=== PATIENT | male | born 1950 | race Caucasian/White ===

== ENCOUNTER → 2017-04-12 09:43 | Outpatient (CLI) | payer SELFPAY ==
[2017-04-12 12:29] LABS: AST(SGOT) 27 U/L (15-37); Alanine Aminotransfer ALT/SGPT 36 U/L (12-78); Albumin, Serum 3.5 g/dL (3.4-5.0); Alkaline Phosphatase 60 U/L (45-117); Anion Gap 7 (5-15); BUN 25 mg/dL (7-18); BUN/Creat Ratio 32.5 RATIO (10-20); Chloride 106 mmol/L (98-107); Cholesterol 126 mg/dL (200); Creatinine, Serum 0.77 mg/dL (0.70-1.30); Globulin 3.5 g/dL (2.2-4.2); Glucose 86 mg/dL (70-110); High Density Lipoprotein 39 mg/dL; Potassium 4.2 mmol/L (3.5-5.1); Sodium Level 139 mmol/L (136-145); Triglycerides 78 mg/dL; Very Low Density Lipoprotein 16 mg/dL (5-40)
== END ==
PROVIDERS: Family Provider Family Medicine; PCP Family Medicine; Visit Provider Family Medicine
DX: I25.10 Atherosclerotic heart disease of native coronary artery without angina pectoris (principal)
CPT/HCPCS: 36415; 80047; 80061; 80076

== ENCOUNTER → 2019-09-07 09:40 | Outpatient (CLI) | payer MEDICARE, SELFPAY ==
[2017-11-11 14:19] VITALS: BMI 27.8
[2019-09-07 12:25] LABS: AST(SGOT) 23 U/L (15-37); Alanine Aminotransfer ALT/SGPT 42 U/L (16-61); Anion Gap 4 (5-15); BUN 18 mg/dL (7-18); BUN/Creat Ratio 20.7 RATIO (10-20); Calcium,Total 8.8 mg/dL (8.5-10.1); Chloride 107 mmol/L (98-107); Cholesterol 135 mg/dL (200); Creatinine, Serum 0.87 mg/dL (0.70-1.30); EST Glomerular Filtration Rate 93 mL/min (>60); Est Glom Filt Rate - Afr Amer 113 mL/min (>60); Glucose 114 mg/dL (74-106); High Density Lipoprotein 38 mg/dL; Potassium 4.1 mmol/L (3.5-5.1); Sodium Level 141 mmol/L (136-145); Triglycerides 124 mg/dL; Very Low Density Lipoprotein 25 mg/dL (5-40)
== END ==
PROVIDERS: PCP Family Medicine; Visit Provider Family Medicine
DX: E78.00 Pure hypercholesterolemia, unspecified (principal); I10 Essential (primary) hypertension
CPT/HCPCS: 36415; 80048; 80061; 84450; 84460

== ENCOUNTER → 2020-09-30 14:13 | Outpatient (CLI) | payer MEDICARE, SELFPAY ==
[2017-11-11 14:19] VITALS: BMI 27.8
[2020-09-30 16:10] LABS: AST(SGOT) 26 U/L (15-37); Alanine Aminotransfer ALT/SGPT 48 U/L (16-61); Anion Gap 3 (5-15); BUN 20 mg/dL (7-18); BUN/Creat Ratio 22.8 RATIO (10-20); Calcium,Total 8.7 mg/dL (8.5-10.1); Chloride 105 mmol/L (98-107); Cholesterol 131 mg/dL (200); Creatinine, Serum 0.88 mg/dL (0.70-1.30); EST Glomerular Filtration Rate 92 mL/min (>60); Est Glom Filt Rate - Afr Amer 111 mL/min (>60); Glucose 104 mg/dL (74-106); High Density Lipoprotein 28 mg/dL; PSA,Total - Annual Screen 2.54 ng/mL (0.00-4.00); Potassium 3.8 mmol/L (3.5-5.1); Sodium Level 140 mmol/L (136-145); Triglycerides 166 mg/dL; Very Low Density Lipoprotein 33 mg/dL (5-40)
== END ==
PROVIDERS: PCP Family Medicine; Visit Provider Family Medicine
DX: I25.10 Atherosclerotic heart disease of native coronary artery without angina pectoris (principal); E78.00 Pure hypercholesterolemia, unspecified; N40.0 Benign prostatic hyperplasia without lower urinary tract symptoms; Z12.5 Encounter for screening for malignant neoplasm of prostate
CPT/HCPCS: 36415; 80048; 80061; 84153; 84450; 84460; G0103

== ENCOUNTER 2021-05-03 11:33 | Outpatient (CLI) | payer MEDICARE, SELFPAY ==
[2021-05-03 15:04] LABS: Absolute Lymphocyte Count 1.24 X10^3/uL (0.83-4.51); Absolute Neutrophil Count 3.5 X10^3/uL (2.0-7.7); Basophil# 0.03 X10^3/uL; Basophil% 0.6 % (0-1); Eosinophil# 0.16 X10^3/uL; Hematocrit 44.3 % (40-54); Lymphocyte # 1.24 X10^3/ul (0.83-4.51); Lymphocyte % 23.3 % (19-41); Mean Corp Hgb Conc 33.9 g/dL (32-36); Mean Corpuscular Hgb 28.8 pg (27.0-32.0); Mean Corpuscular Volume 85.2 fL (80-94); Mean Platelet Vol. 11.6 fl (6.2-12.0); Monocyte# 0.42 X10^3/uL; Monocyte% 7.9 % (0-10); NRBC Flagged by Analyzer 0 % (0-5); Neutrophil # 3.45 X10^3/uL (2.7-7.7); Neutrophil % 64.8 % (47-70); Platelet Count 158 K/mm3 (150-450); RBC Distribution Width CV 13.3 % (11.6-14.6); RBC Distribution Width SD 41.1 fl (35.1-43.9); White Blood Count 5.3 K/mm3 (4.4-11.0)
[2021-05-03 15:45] LABS: ALB/GLOB Ratio 1.2 RATIO (0.9-2.4); AST(SGOT) 25 U/L (15-37); Alanine Aminotransfer ALT/SGPT 33 U/L (16-61); Albumin, Serum 3.7 g/dL (3.2-5.0); Alkaline Phosphatase 68 U/L (45-117); Anion Gap 7 (5-15); BUN 23 mg/dL (7-18); Calcium,Total 8.6 mg/dL (8.5-10.1); Chloride 106 mmol/L (98-107); Creatinine, Serum 0.79 mg/dL (0.70-1.30); EST Glomerular Filtration Rate 103 mL/min (>60); Est Glom Filt Rate - Afr Amer 124 mL/min (>60); Globulin 3.2 g/dL (2.2-4.2); Glucose 98 mg/dL (74-106); Potassium 4.4 mmol/L (3.5-5.1); Protein, Total 6.9 g/dL (6.4-8.2); Sodium Level 140 mmol/L (136-145); Thyroid Stim Hormone (TSH) 0.99 uIU/mL (0.358-3.74)
== END 2021-05-03 23:59 | disposition home or self-care (01) ==
LOC: MFPLAB 11:36
PROVIDERS: PCP Family Medicine; Referring Provider Family Medicine; Visit Provider Family Medicine
DX: R53.81 Other malaise (principal)
CPT/HCPCS: 36415; 80053; 84443; 85025

== ENCOUNTER → 2021-08-24 | Outpatient (CLI) | payer MEDICARE, SELFPAY ==
--- NOTE | 2021-08-24 06:21 | ECHOCS_ITS ---
Reason For Study: CAD Procedure This was a 2D Doppler, Color Flow transthoracic echocardiogram. The study was technically difficult. Contrast injection was performed. Exam performed in department. Left Ventricle Normal LV size. Left ventricular systolic function is normal. The estimated ejection fraction is 60 %. No evidence for diastolic dysfunction. No regional wall motion abnormalities noted. Right Ventricle Normal RV size. Normal systolic function. Atria The left atrium is mildly enlarged. Normal right atrium. No doppler evidence for ASD. Mitral Valve There is no mitral annular calcification. Normal mitral valve. Mild (1+) mitral valve insufficiency. Tricuspid Valve Normal tricuspid valve. Mild tricuspid valve insufficiency. Right ventricular systolic pressure estimated to be 22 mmHg. Aortic Valve Trisinus/trileaflet aortic valve. Mild focal aortic valve thickening. Pulmonic Valve The pulmonic valve is not well visualized. Trivial pulmonic valve insufficiency. Great Vessels Normal sized aortic root. Pericardium/Pleural No pericardial effusion. Medication Diluted definity 3ml given slow IV push to enhance endocardial definition. MMode/2D Measurements & Calculations LVIDd: 4.7 cm IVSd: 1.4 cm Ao root diam: 3.6 cm LVIDs: 3.0 cm LVPWd: 1.0 cm FS: 37.1 % LAV(MOD-bp): 54.1 ml LVAd ap4: 30.8 cm2 LVAd ap2: 27.9 cm2 LAV(MOD-bp) Indexed: 26.7 ml/m2 LVLd ap4: 7.7 cm LVLd ap2: 6.7 cm LAV(MOD-sp2): 55.3 ml EDV(MOD-sp4): 104.0 ml EDV(MOD-sp2): 94.7 ml LAV(MOD-sp4): 44.6 ml EDV(sp4-el): 104.8 ml EDV(sp2-el): 98.0 ml LVAs ap4: 17.5 cm2 LVAs ap2: 16.6 cm2 LVLs ap4: 6.4 cm LVLs ap2: 6.1 cm ESV(MOD-sp4): 42.9 ml ESV(MOD-sp2): 38.8 ml ESV(sp4-el): 40.5 ml ESV(sp2-el): 38.4 ml EF(MOD-sp4): 58.8 % EF(MOD-sp2): 59.1 % EF(sp4-el): 61.3 % SV(MOD-sp4): 61.1 ml SV(MOD-sp2): 56.0 ml SV(sp4-el): 64.3 ml LA A4 area: 17.5 cm2 LA dimension(2D): 3.5 cm RA A4 area: 11.4 cm2 Doppler Measurements & Calculations MV E max david: 44.2 cm/sec Lat Peak E' David: 9.5 cm/sec Med Peak E' David: 5.9 cm/sec MV A max david: 70.3 cm/sec E/E' lat: 4.7 E/E' med: 7.5 MV E/A: 0.63 Ao V2 max: 115.5 cm/sec LV V1 max: 96.2 cm/sec PA V2 max: 96.1 cm/sec Ao max P.3 mmHg LV V1 max P.7 mmHg TR max david: 219.4 cm/sec TR max P.3 mmHg ECHO/Echo Complete W/ Contrast Interpretation Summary The study was technically difficult. Contrast injection was performed. Left ventricular systolic function is normal. The estimated ejection fraction is 60 %. The left atrium is mildly enlarged. Mild (1+) mitral valve insufficiency. Mild tricuspid valve insufficiency. Mild focal aortic valve thickening. Trivial pulmonic valve insufficiency. Right ventricular systolic pressure estimated to be 22 mmHg. No evidence for diastolic dysfunction. Ordering Physician: Jese Silva Referring Physician: Flaca Estrella M.D. Performed By: Gabby Banuelos RDCS
--- NOTE | 2021-08-24 11:20 | STRESSREP ---
Stress Test Report Date: 08-24-2021 Procedure: Exercise tolerance test/imaging study Indications: CAD; PCI stomach CABG; hyperlipidemia; hypertension; paroxysmal atrial fibrillation; preoperative cardiovascular evaluation Consent: Per the patient Procedure: The patient exercised on a Moreno protocol for 9 minutes completing Stage III achieving a peak heart rate of 139 bpm (92% predicted maximal heart rate) with a peak blood pressure 164/84 mmHg and a peak MET capacity of 10 METs. The baseline ECG demonstrated sinus bradycardia. The peak exercise ECG demonstrated no obvious ECG change. There was a rare PVC during exercise and recovery. The functional capacity was considered good. There was [no complaint of chest discomfort during exercise or recovery]. The examination was discontinued secondary to dyspnea. Impression: 1. Technically adequate (percent predicted maximal heart rate greater than 85%) exercise tolerance test 2. Peak exercise ECG with no obvious ECG change 3. There was a rare PVC during exercise and recovery 4. Nuclear images pending Myocardial perfusion imaging study: Technique: The patient was injected with 11.5 mCi of technetium 99m Cardiolite and subsequently rest SPECT Cardiolite nuclear imaging was obtained in the horizontal long, vertical long, and short axis views. The patient exercised on a Moreno protocol for 9 minutes completing Stage III achieving a peak heart rate of 139 bpm (92% predicted maximal heart rate) with a peak blood pressure 164/84 mmHg and a peak MET capacity of 10 METs. The patient was injected with 34.7 mCi of technetium 99m Cardiolite and subsequently stress SPECT Cardiolite nuclear imaging was obtained in the horizontal long, vertical long, and short axis views. A gated Cardiolite study at peak stress was obtained. Interpretation: Rest and stress SPECT Cardiolite nuclear imaging status post realignment, normalization, and attenuation correction, demonstrates the appearance of body motion during image acquisition and otherwise relative uniform tracer uptake and myocardial perfusion appearing within normal limits. There is end systolic thickening and brightening. The gated Cardiolite study demonstrates myocardial thickening and inward wall motion. The reported LVEF is 62%. Impression: 1. Rest and stress SPECT Cardiolite nuclear imaging demonstrate [relative uniform tracer uptake and myocardial perfusion appearing within normal limits]. 2. The gated Cardiolite study reports an LVEF of 62%. This note was generated with [employer] software. It may contain incorrect words, spelling, and punctuation that were not noted in checking the note before signing.
== END | disposition home or self-care (01) ==
LOC: CVS 06:20
PROVIDERS: PCP Family Medicine; Referring Provider Internal Medicine Cardiovascular Disease; Visit Provider Internal Medicine Cardiovascular Disease
DX: I25.10 Atherosclerotic heart disease of native coronary artery without angina pectoris (principal); I48.0 Paroxysmal atrial fibrillation; I10 Essential (primary) hypertension; E78.00 Pure hypercholesterolemia, unspecified; I25.2 Old myocardial infarction; Z95.1 Presence of aortocoronary bypass graft
CPT/HCPCS: 78452; 93017; 93306; A9500; Q9957; A4216; C8929

== ENCOUNTER → 2022-01-24 | Outpatient (CLI) | payer MEDICARE, SELFPAY ==
[2022-01-24 18:08] LABS: Microalbumin,Random Urine 13.2 mg/L (NO RANGE EST.); Microalbumin:Creatinine Ratio 7.3 mg/g CRE (<30 mg/g CRE)
[2022-01-24 18:16] LABS: AST(SGOT) 18 U/L (15-37); Alanine Aminotransfer ALT/SGPT 24 U/L (16-61); Anion Gap 5 (5-15); BUN 23 mg/dL (7-18); BUN/Creat Ratio 25.2 RATIO (10-20); Calcium,Total 9.2 mg/dL (8.5-10.1); Chloride 107 mmol/L (98-107); Cholesterol 132 mg/dL (200); Creatinine, Serum 0.91 mg/dL (0.70-1.30); EST Glomerular Filtration Rate 87 mL/min (>60); Est Glom Filt Rate - Afr Amer 106 mL/min (>60); Glucose 114 mg/dL (74-106); High Density Lipoprotein 33 mg/dL; Sodium Level 141 mmol/L (136-145); Triglycerides 153 mg/dL; Very Low Density Lipoprotein 31 mg/dL (5-40)
== END | disposition home or self-care (01) ==
LOC: MFPLAB 14:21
PROVIDERS: PCP Family Medicine; Referring Provider Family Medicine; Visit Provider Family Medicine
DX: I25.10 Atherosclerotic heart disease of native coronary artery without angina pectoris (principal); E78.00 Pure hypercholesterolemia, unspecified; I10 Essential (primary) hypertension
CPT/HCPCS: 36415; 80048; 80061; 82043; 82570; 84450; 84460

== ENCOUNTER → 2022-05-23 | Outpatient (CLI) | payer MEDICARE, SELFPAY ==
--- NOTE | 2022-05-23 12:40 | VDLE_ITS ---
Reason For Study: LEG EDEMA RIGHT LEFT CFV is compressible, spontaneous, phasic, CFV is compressible, spontaneous, phasic, competent and demonstrates normal competent, and demonstrates normal augmentation. augmentation. FV is compressible, spontaneous, phasic, competent and demonstrates normal augmentation. POP V is compressible, spontaneous, phasic, competent and demonstrates normal augmentation. T/P Trunk is compressible. PTV is compressible. RT PerV is compressible. GSV Harvested for CABG. Procedure This is a venous duplex using B-mode, color flow and spectral Doppler. Exam performed in department. The exam was diagnostic. A preliminary report was called and/or faxed to Dr. Estrella office. VL/Venous Duplex US, Unilateral Interpretation Summary Deep veins of the right lower extremity are patent and compressible segmentally . There is no evidence of right lower extremity deep vein thrombosis. Valvular competence elizabeth ears intact within the proximal deep venous system on the right . The right great saphenous vein i s absent, having been previously harvested. Ordering Physician: Flaca Estrella Referring Physician: Flaca Estrella Performed By: King Flynn, RVBo
== END | disposition home or self-care (01) ==
PROVIDERS: PCP Family Medicine; Visit Provider Family Medicine
DX: R60.0 Localized edema (principal); M25.561 Pain in right knee; M25.562 Pain in left knee
CPT/HCPCS: 36415; 84550; 85025; 85652; 86038; 86140; 86431; 93971

== ENCOUNTER → 2022-05-23 | Outpatient (CLI) | payer MEDICARE, SELFPAY ==
[2022-05-23 15:35] LABS: Absolute Lymphocyte Count 0.94 X10^3/uL (0.83-4.51); Absolute Neutrophil Count 4.9 X10^3/uL (2.0-7.7); Basophil# 0.02 X10^3/uL; Basophil% 0.3 % (0-1); Eosinophil# 0.08 X10^3/uL; Eosinophils% 1.3 % (0-5); Hematocrit 40.8 % (40-54); Hemoglobin 13.5 g/dL (13.0-16.5); Lymphocyte # 0.94 X10^3/ul (0.83-4.51); Lymphocyte % 14.8 % (19-41); Mean Corp Hgb Conc 33.1 g/dL (32-36); Mean Corpuscular Hgb 28.3 pg (27.0-32.0); Mean Corpuscular Volume 85.5 fL (80-94); Mean Platelet Vol. 11.5 fl (6.2-12.0); Monocyte# 0.47 X10^3/uL; Monocyte% 7.4 % (0-10); NRBC Flagged by Analyzer 0 % (0-5); Neutrophil # 4.85 X10^3/uL (2.7-7.7); Platelet Count 183 K/mm3 (150-450); RBC Distribution Width CV 12.7 % (11.6-14.6); RBC Distribution Width SD 39.7 fl (35.1-43.9); Red Blood Count 4.77 M/mm3 (4.6-6.2); White Blood Count 6.4 K/mm3 (4.4-11.0)
[2022-05-23 15:37] LABS: Erythrocyte Sedimentation Rate 37 mm/hr (0-20)
[2022-05-23 15:43] LABS: Rheumatoid Factor < 10.0 IU/mL (<15); Uric Acid 4.2 mg/dL (3.5-7.2)
[2022-05-25 15:24] LABS: ANTINUCLEAR ANTIBODIES DIRECT Negative (Negative)
== END | disposition home or self-care (01) ==
LOC: MFPLAB 12:15
PROVIDERS: PCP Family Medicine; Referring Provider Family Medicine; Visit Provider Family Medicine
DX: M25.561 Pain in right knee (principal); M25.562 Pain in left knee
CPT/HCPCS: 36415; 84550; 85025; 85652; 86038; 86140; 86431

== ENCOUNTER → 2022-06-19 | Outpatient (CLI) | payer MEDICARE, SELFPAY ==
--- NOTE | 2022-06-19 11:17 | RAD_ITS ---
EXAM: XR RIGHT KNEE, 3 VIEWS CLINICAL INDICATION: PAIN TECHNIQUE: Three views of the right knee. This report was created using dough report generation technology. COMPARISON: None. FINDINGS: BONES/JOINTS: Small amount of suprapatellar joint fluid. No acute fracture. No subluxation. Normal alignment. No unusual lytic or sclerotic lesions of bone. SOFT TISSUES: Unremarkable. No soft tissue swelling or gas. No radiopaque foreign body. No soft tissue abnormalities. VASCULATURE: Atherosclerotic calcifications along the superficial femoral artery. RAD/Knee 4 or More Views IMPRESSION: No acute or healing fracture or malalignment. Electronically Signed: Minh Garay MD at 4:14 EDT ,
--- NOTE | 2022-06-19 11:17 | RAD_ITS ---
EXAM: XR LEFT KNEE, 3 VIEWS CLINICAL INDICATION: PAIN TECHNIQUE: Three views of the left knee. This report was created using [employer] report generation technology. COMPARISON: None. FINDINGS: BONES/JOINTS: Unremarkable. No acute fracture. No subluxation. Normal alignment. Preservation of the joint space. No sclerotic or destructive changes observed. SOFT TISSUES: Small amount of suprapatellar joint fluid. No soft tissue swelling or gas. No radiopaque foreign body. RAD/Knee 4 or More Views IMPRESSION: Small volume suprapatellar joint fluid. No acute or healing fracture or malalignment. Electronically Signed: Minh Garay MD at 4:10 EDT ,
== END | disposition home or self-care (01) ==
LOC: MTRAD 11:15
PROVIDERS: PCP Family Medicine; Referring Provider Family Medicine; Visit Provider Family Medicine
DX: M25.561 Pain in right knee (principal); M25.562 Pain in left knee
CPT/HCPCS: 73564

== ENCOUNTER → 2022-09-19 | Outpatient (CLI) | payer MEDICARE, SELFPAY ==
[2022-09-19 16:16] LABS: AST(SGOT) 32 U/L (15-37); Alanine Aminotransfer ALT/SGPT 38 U/L (16-61); Albumin, Serum 3.7 g/dL (3.2-5.0); Alkaline Phosphatase 55 U/L (45-117); Bilirubin, Direct 0.15 mg/dL (0.00-0.30); Cholesterol 136 mg/dL (200); Globulin 3.3 g/dL (2.2-4.2); High Density Lipoprotein 39 mg/dL; Triglycerides 144 mg/dL; Very Low Density Lipoprotein 29 mg/dL (5-40)
== END | disposition home or self-care (01) ==
LOC: LAB 14:54
PROVIDERS: PCP Family Medicine; Referring Provider Physician Assistant Medical; Visit Provider Physician Assistant Medical
DX: I25.10 Atherosclerotic heart disease of native coronary artery without angina pectoris (principal); E78.00 Pure hypercholesterolemia, unspecified
CPT/HCPCS: 36415; 80061; 80076

== ENCOUNTER → 2023-01-18 | Outpatient (CLI) | payer MEDICARE, SELFPAY ==
[2023-01-18 13:29] LABS: Microalbumin,Random Urine 13.7 mg/L (NO RANGE EST.); Microalbumin:Creatinine Ratio 18.3 mg/g CRE (<30 mg/g CRE)
[2023-01-18 14:05] LABS: AST(SGOT) 21 U/L (15-37); Alanine Aminotransfer ALT/SGPT 32 U/L (16-61); Anion Gap 3 (5-15); BUN 18 mg/dL (7-18); BUN/Creat Ratio 21.8 RATIO (10-20); Calcium,Total 8.6 mg/dL (8.5-10.1); Chloride 107 mmol/L (98-107); Creatinine, Serum 0.83 mg/dL (0.70-1.30); EST Glomerular Filtration Rate 97 mL/min (>60); Est Glom Filt Rate - Afr Amer 118 mL/min (>60); Glucose 102 mg/dL (74-106); Potassium 4.3 mmol/L (3.5-5.1); Sodium Level 139 mmol/L (136-145)
== END | disposition home or self-care (01) ==
LOC: MFPLAB 09:51
PROVIDERS: PCP Family Medicine; Visit Provider Family Medicine
DX: I10 Essential (primary) hypertension (principal); E78.00 Pure hypercholesterolemia, unspecified
CPT/HCPCS: 36415; 80048; 82043; 82570; 84450; 84460

== ENCOUNTER 2023-09-21 11:05 | Emergency (ER) | payer MEDICARE, SELFPAY ==
[2023-09-21 11:05] VITALS: BP 154/70; PULSE 54; RESP 14; TEMP 36.1; O2SAT 98; BMI 27.3
--- NOTE | 2023-09-21 11:21 | CT_ITS ---
STUDY: CT ABDOMEN AND PELVIS WITH CONTRAST REASON FOR EXAM: Male, 72 years old. Abdominal pain, hernia RADIATION DOSAGE (If Supplied By Facility): CTDIvol = ( 16.03 ) mGy, DLP = ( 1122.83 ) mGycm TECHNIQUE: Transaxial images were obtained from the dome of the diaphragm to the symphysis pubis without oral contrast. Oral and amp;amp; IV Gastrografin and amp;amp; 100mL Isovue-370 was administered. Sagittal and coronal images were reconstructed. Individualized dose optimization techniques were used for this CT. COMPARISON: None. FINDINGS: Lung bases show the lungs to be normally expanded. There is dependent atelectasis. No organizing infiltrate or effusion. There is a 6.7 mm noncalcified nodule on axial image 1. Since there are no previous studies available for comparison, a dedicated CT scan of the chest could be performed to determine if any other nodules are present. There has been a remote CABG Normal liver. There are multiple gallstones. Normal spleen. Normal pancreas. Normal bilateral adrenal glands. No obstructive uropathy or suspicious solid renal lesion, there is a simple right renal cyst, no specific follow-up is needed. There is a small hiatal hernia. Normal small intestine. Normal colon. The appendix is visualized and appears normal. Appendix seen on coronal recon images 47 through 51 There is diffuse atherosclerotic calcification of the abdominal aorta, without a demonstrated aneurysm. Normal inferior vena cava. Normal retroperitoneum. Normal urinary bladder. There is a fat-containing midline ventral hernia. There are no bowel loops noted within this hernia and there is no evidence of acute inflammatory change. Additionally, there are small fat-containing inguinal hernias. There are diffuse degenerative changes of the visualized lumbar spine, and pelvis. CT/Abdomen/Pelvis WITH Contrast IMPRESSION: There is a fat-containing ventral hernia. There are no bowel loops within the hernia and no CT evidence of an acute inflammatory process Bilateral fat-containing inguinal hernias No suspicious solid organ abnormality, simple right renal cyst, no specific follow-up needed. No free intraperitoneal fluid, air, or suspicious adenopathy. There is a 6.7 mm noncalcified nodule in the right lower lobe on axial image 1, dedicated CT scan of the chest could be performed as there are no previous studies available for comparison Electronically Signed: Saad Cordon MD at 13:40 EDT ,
--- NOTE | 2023-09-21 11:22 | ED.VIS.GI ---
HPI HPI - GI History of Present Illness Chief Complaint: Abd Pain Narrative Narrative: 72-year-old male has had a large ventral hernia for years, it was post to be repaired but during the pandemic there were restrictions in place on elective surgeries and so it did not happen he was following with Dr. Castro. States he has not been back to see him yet. States yesterday, the hernia which is usually soft started getting hard/firm and he was having some abdominal discomfort, pressure/tightness and some nausea. He came in waves but improved. He had a bowel movement this morning and walked around and drink some water and he thought it would get better but it is not getting better and it is persistent. No vomiting but nauseated at times and just not feeling well overall. [facility] Medical History Preoperative cardiovascular examination History of left heart catheterization (LHC) (~09/08/99) Paroxysmal atrial fibrillation Essential hypertension Pure hypercholesterolemia Atherosclerotic heart disease of [place] coronary artery without angina pectoris Incarcerated ventral hernia Screening for intestinal cancer Epigastric pain History of MD (myocardial infarction) Hypercholesterolemia Hypertension Heart disease Home Medications ?Medication ?Instructions ?Recorded ?Last Taken ?Type aspirin 81 mg tablet,delayed 81 mg PO DAILY 07/27/21 Unknown History release (Adult Low Dose Aspirin) amlodipine 2.5 mg tablet (Norvasc) 2.5 mg PO DAILY #90 tabs 09/19/22 Unknown Rx atorvastatin 40 mg tablet (Lipitor) 40 mg PO DAILY 01/22/23 Unknown History metoprolol tartrate 50 mg tablet 25 mg PO BID 01/22/23 Unknown History (Lopressor) Allergy/AdvReac Type Severity Reaction Status Date / Time ramipril (From Altace) AdvReac Unknown GI Issues Verified 09/21/23 11:06 Family History Father Cancer Lung Mother Myocardial infarction, Onset Age: 93 Surgical History History of shoulder surgery History of coronary artery bypass surgery (~06/15/16) History of angioplasty History of coronary artery stent placement History of bilateral inguinal hernia repair Social History Smoking Status: Former smoker alcohol intake: current alcohol intake frequency: holidays/special occasions only substance use type: does not use caffeine: Yes Type: coffee Number of servings: 2 ROS ROS ED Constitutional Constitutional ED: Reports malaise; Denies chills or fever(s) Eyes Eyes: Denies change in vision or diplopia ENT ENT ED: Denies rhinorrhea or sore throat Cardiovascular Cardiovascular: Denies chest pain or palpitations Respiratory/Chest Respiratory/Chest: Denies cough or dyspnea Gastrointestinal Gastrointestinal: Reports abdominal pain, nausea and other Details: Last BM this morning and unremarkable ; Denies diarrhea or vomiting Genitourinary Genitourinary ED: Denies dysuria or hematuria Musculoskeletal Musculoskeletal: Denies back pain or neck pain Integumentary Denies abscess or rash Neurologic Neurologic: Denies headache(s), paresthesias or weakness Psychiatric Psychiatric: Denies anxiety or suicidal thoughts EXAM Physical Exam Const Vital Signs: 09/21/23 11:05 09/21/23 13:05 Temperature 96.9 F L Temperature Source Temporal Pulse Rate 54 L 63 Respiratory Rate 14 16 Blood Pressure 154/70 H 177/102 H Blood Pressure Mean 98 127 Pulse Ox 98 95 Oxygen Delivery Method Room Air Room Air Positive well nourished and well developed General Appearance ED: well developed and NAD HEENT Reports moist mucous membranes normocephalic and atraumatic Eyes PERRL and EOMs intact bilaterally Neck full ROM and supple Resp normal respiratory effort and clear to auscultation bilaterally Cardio regular rate, regular rhythm and no murmurs GI GI Narrative: Mild diffuse abdominal tenderness without guarding or rebound, mild diffuse distention. Large exophytic-appearing midline periumbilical ventral hernia that is slightly erythematous, slightly dusky/bluish, which patient states is normal usual color; it is firm and for the most part nontender. It is relatively large for the small size of its neck. Auscultation: normoactive bowel sounds Palpation: soft Back/Spine no CVA tenderness General Back: other FROM Extremity normal to inspection General Extremety ED: Negative for edema, pulses abnormal or tenderness General Extremity: Negative for edema or pulses abnormal Neuro oriented x3, CN's II-XII intact bilaterally and no sensory deficits noted Sensorium / Orientation: awake and alert Motor Exam: strength 5/5 throughout Psych mental status grossly normal and thought process normal Skin no rashes or lesions noted and no wounds MDM MDM MDM Narrative Medical decision making narrative: Concern for this being incarcerated/obstructed, however given the relatively benign exam and symptoms, obtaining a CT with oral and IV contrast and contextual labs. Upon ingesting the oral contrast he ended up vomiting a large amount of it up despite already having Zofran and the nurse coming in to give him Reglan concurrently. He still received the Reglan. CT images were reviewed by myself as well as the report and I agree with it. Basically the hernia contains mesenteric/subcutaneous fat and no bowel so there is no sign of incarceration or small bowel obstruction or any other acute inflammatory disorder. There are also bilateral inguinal fat-containing hernias that are nonincarcerated and he is asymptomatic from those. On reevaluation, the patient states that somewhere between going over the CT and returning, he states everything is feeling much better and the hernia is feeling more soft again like he is used to. I discussed the fact that he has gallstones on the CT. I do not think he is having biliary colic today and the labs are so normal that none of this is consistent with acute cholecystitis. We discussed symptoms of biliary colic and reasons to return but in the meantime I think he is stable to follow-up as an outpatient with surgery. Since he was already seen by [facility] surgery practice he is welcome to go there he was also given our surgery practice if he chooses us. Lab Data Attestation: I reviewed the patient's lab results. Labs: Laboratory Results - last 24 hr 09/21/23 11:25 WBC 7.0 RBC 5.49 Hgb 15.8 Hct 46.4 MCV 84.5 MCH 28.8 MCHC 34.1 RDW Std Deviation 40.6 RDW Coeff of Isabela 13.2 Plt Count 162 MPV 10.6 Immature Gran % (Auto) 0.100 Neut % (Auto) 66.9 Lymph % (Auto) 24.8 Kleberg % (Auto) 6.1 Eos % (Auto) 1.7 Baso % (Auto) 0.4 Absolute Neuts (auto) 4.7 Absolute Lymphs (auto) 1.74 Nucleated RBC % 0 Sodium 139 Potassium 3.9 Chloride 104 Carbon Dioxide 28.0 Anion Gap 7 BUN 19 H Creatinine 1.02 Estim Creat Clear Calc 68.59 Est GFR (MDRD) Af Amer 92 Est GFR (MDRD) Non-Af 76 BUN/Creatinine Ratio 18.6 Glucose 158 H Lactic Acid 1.6 Calcium 9.2 Total Bilirubin 0.80 AST 24 ALT 31 Alkaline Phosphatase 60 Total Protein 7.4 Albumin 4.2 Globulin 3.2 Albumin/Globulin Ratio 1.3 Radiography Diagnostic Testing: Clinical Impression(s) from Imaging Studies Abdomen/Pelvis CT 09/21/23 11:21 IMPRESSION: There is a fat-containing ventral hernia. There are no bowel loops within the hernia and no CT evidence of an acute inflammatory process Bilateral fat-containing inguinal hernias No suspicious solid organ abnormality, simple right renal cyst, no specific follow-up needed. No free intraperitoneal fluid, air, or suspicious adenopathy. There is a 6.7 mm noncalcified nodule in the right lower lobe on axial image 1, dedicated CT scan of the chest could be performed as there are no previous studies available for comparison Electronically Signed: Saad Cordon MD at 13:40 EDT Reading Location ID and State: [address] [place] [address] , Service support , Discharge Plan Triage Chief Complaint: Abd Pain ED Provider: Esteban Perez Dx/Rx/DC Orders Clinical Impression: Ventral hernia without obstruction or gangrene, Bilateral inguinal hernia, Cholelithiasis Instructions: Treating Gallstones, ED Hernia (Adult) Prescriptions: No Action aspirin [Adult Low Dose Aspirin] 81 mg tablet,delayed release (DR/EC) 81 mg PO DAILY atorvastatin [Lipitor] 40 mg tablet 40 mg PO DAILY amlodipine [Norvasc] 2.5 mg tablet 2.5 mg PO DAILY Qty: 90 3RF metoprolol tartrate [Lopressor] 50 mg tablet 25 mg PO BID Primary Care Provider: Flaca Estrella Referrals: Flaca Estrella MD [Primary Care Provider] - Jasbir Jeronimo MD [Non-Staff] - Molly Viera MD [Med Staff - Active Staff] - Print Language: Arabic Disposition Disposition: Home, Self Care
[2023-09-21] MEDS: Ondansetron 4 MG/2 ML Vial IV (11:29)
[2023-09-21] MEDS: 0.9% Normal Saline (1000mL) 1,000 ML 999 ML IV (11:29)
[2023-09-21 11:47] LABS: Absolute Lymphocyte Count 1.74 X10^3/uL (0.83-4.51); Absolute Neutrophil Count 4.7 X10^3/uL (2.0-7.7); Basophil# 0.03 X10^3/uL; Basophil% 0.4 % (0-1); Eosinophil# 0.12 X10^3/uL; Eosinophils% 1.7 % (0-5); Hematocrit 46.4 % (40-54); Hemoglobin 15.8 g/dL (13.0-16.5); Lymphocyte # 1.74 X10^3/ul (0.83-4.51); Lymphocyte % 24.8 % (19-41); Mean Corp Hgb Conc 34.1 g/dL (32-36); Mean Corpuscular Hgb 28.8 pg (27.0-32.0); Mean Corpuscular Volume 84.5 fL (80-94); Mean Platelet Vol. 10.6 fl (6.2-12.0); Monocyte# 0.43 X10^3/uL; Monocyte% 6.1 % (0-10); NRBC Flagged by Analyzer 0 % (0-5); Neutrophil # 4.68 X10^3/uL (2.7-7.7); Neutrophil % 66.9 % (47-70); Platelet Count 162 K/mm3 (150-450); RBC Distribution Width CV 13.2 % (11.6-14.6); RBC Distribution Width SD 40.6 fl (35.1-43.9); Red Blood Count 5.49 M/mm3 (4.6-6.2)
[2023-09-21 11:48] LABS: ALB/GLOB Ratio 1.3 RATIO (0.9-2.4); AST(SGOT) 24 U/L (15-37); Alanine Aminotransfer ALT/SGPT 31 U/L (16-61); Albumin, Serum 4.2 g/dL (3.2-5.0); Alkaline Phosphatase 60 U/L (45-117); Anion Gap 7 (5-15); BUN 19 mg/dL (7-18); BUN/Creat Ratio 18.6 RATIO (10-20); Calcium,Total 9.2 mg/dL (8.5-10.1); Chloride 104 mmol/L (98-107); Creatinine, Serum 1.02 mg/dL (0.70-1.30); EST Glomerular Filtration Rate 76 mL/min (>60); Est Glom Filt Rate - Afr Amer 92 mL/min (>60); Estimated Creatinine Clearance 68.59 ml/min; Globulin 3.2 g/dL (2.2-4.2); Glucose 158 mg/dL (74-106); Potassium 3.9 mmol/L (3.5-5.1); Protein, Total 7.4 g/dL (6.4-8.2); Sodium Level 139 mmol/L (136-145)
[2023-09-21 11:55] LABS: Lactic Acid 1.6 mmol/L (0.4-1.9)
[2023-09-21] MEDS: Metoclopramide 10 MG/2 ML Vial 5 MG IV (12:39)
--- NOTE | 2023-09-21 12:45 | ED.RN ---
pt vomited copious amounts. ct dye. dr khan
[2023-09-21 13:05] VITALS: BP 177/102; PULSE 63; RESP 16; O2SAT 95
[2023-09-21 13:59] VITALS: BP 147/73; PULSE 65; RESP 16; TEMP 36.1; O2SAT 95
== END 2023-09-21 14:01 | disposition home or self-care (01) ==
PROVIDERS: Emergency Provider Emergency Medicine; PCP Family Medicine; Visit Provider Emergency Medicine
DX: K43.9 Ventral hernia without obstruction or gangrene (principal); K80.20 Calculus of gallbladder without cholecystitis without obstruction; I25.10 Atherosclerotic heart disease of native coronary artery without angina pectoris; I10 Essential (primary) hypertension; K40.20 Bilateral inguinal hernia, without obstruction or gangrene, not specified as recurrent; Z87.891 Personal history of nicotine dependence; E78.00 Pure hypercholesterolemia, unspecified
CPT/HCPCS: 74177; 80053; 83605; 85025; 96361; 96374; 96375; 99283; J7030; Q9967; A4216; J2405

== ENCOUNTER → 2023-10-10 | Outpatient (CLI) | payer MEDICARE, SELFPAY ==
--- NOTE | 2023-10-10 17:30 | CT_ITS ---
INDICATION: pulmonary nodule seen on abdominal ct EXAMINATION: CT CHEST WITH CONTRAST - CT Chest W/ Contrast Injection TECHNIQUE: Helically acquired images were obtained of the chest following IV contrast. A radiation dose optimization technique was used for this scan. IV Contrast dosage and agent: COMPARISON: None. FINDINGS: Status post median sternotomy. LUNGS, PLEURA AND LARGE AIRWAYS: No masses, consolidation, or edema. No pleural effusion or thickening. 6 mm noncalcified nodule in the anterior right lower lobe adjacent to the major fissure consistent with a juxtapleural lymph node. This corresponds to the nodule seen on CT the abdomen pelvis. THYROID: No thyroid lesions. HEART AND PERICARDIUM: Heart size is normal. No pericardial effusion. VESSELS: Thoracic aorta is not dilated. No aortic dissection. No obvious central pulmonary embolism although this study was not performed with the pulmonary embolism protocol. MEDIASTINUM AND DHAVAL: No mediastinal or hilar adenopathy. Esophagus is unremarkable. No hiatal hernia. UPPER ABDOMEN: Peripherally calcified gas containing gallstones but gallbladder consistent with cholelithiasis. BONES: Mild dextroscoliosis thoracic spine with degenerative disc disease. CT/Chest WITH Contrast IMPRESSION: Negative contrast enhanced CT of the chest. Electronically Signed: Jasbir Gan MD at 12:07 EDT ,
== END | disposition home or self-care (01) ==
LOC: CT 17:26
PROVIDERS: PCP Family Medicine; Referring Provider Family Medicine; Visit Provider Family Medicine
DX: R91.1 Solitary pulmonary nodule (principal)
CPT/HCPCS: 71260; Q9967

== ENCOUNTER → 2023-10-22 | Outpatient (CLI) | payer MEDICARE, SELFPAY | END | disposition home or self-care (01) | LOC: LABSPEC 16:03 | PROVIDERS: PCP Family Medicine; Referring Provider Surgery; Visit Provider Surgery | DX: K42.9 Umbilical hernia without obstruction or gangrene (principal); K40.90 Unilateral inguinal hernia, without obstruction or gangrene, not specified as recurrent | CPT/HCPCS: 87081 ==

== ENCOUNTER 2023-11-25 05:59 | Day surgery (SDC) | payer MEDICARE, SELFPAY ==
--- NOTE | 2023-11-12 11:20 | EKG12_ITS ---
Test Reason : PREOP Blood Pressure : / mmHG Vent. Rate : 067 BPM Atrial Rate : 067 BPM P-R Int : 152 ms QRS Dur : 088 ms QT Int : 408 ms P-R-T Axes : 031 -10 043 degrees QTc Int : 431 ms Normal sinus rhythm Inferior infarct , age undetermined Abnormal ECG Confirmed by Khoa Le ([id number]), manuscript editor KENDELL PIMENTEL ([id number]) on 11/13/2023 8:22:03 AM Referred By: Khoa Gonzalez Confirmed By:Khoa Le
[2023-11-25] VITALS (15 sets, daily range): BP systolic 135–170; BP diastolic 71–83; PULSE 55–77; RESP 16; TEMP 36.2–36.8; O2SAT 87–98; BMI 26.8
[2023-11-25] MEDS: Lactated Ringers 1,000 ML 15 ML IV (06:30)
--- NOTE | 2023-11-25 06:35 | PRE.ANES_ITS ---
ASA Classification* ASA Classification ASA Classification: 3 Assessment & Plan Anesthesia* Anesthesia Assessment Anesthesia Assessment: Discussed sedation and/or anesthesia options, risks, benefits, and alternatives with patient/parents/legal guardian/POA. Questions invited. The patient/parents/legal guardian/POA seems to understand and agrees to proceed with anesthesia plan. Reviewed the physical assessment, medical history, allergy history and patient home medications list prior to surgery/procedure/anesthetic and documented any changes. Performed airway and anesthesia risk assessments. Anesthesia Type Anesthesia Type: General Anesthesia Focused Assessment* Temperature: 97.2 F Pulse Rate: 55 Respiratory Rate: 16 Pulse Ox: 98 Airway Assessment Mouth opens: >3 cm Mallampati Score: II Focused Labs Anesthesia Preop lab: CBC WBC 7.0 K/mm3 (4.4-11.0) 09/21/23 11:25 RBC 5.49 M/mm3 (4.6-6.2) 09/21/23 11:25 Hgb 15.8 g/dL (13.0-16.5) 09/21/23 11:25 Hct 46.4 % (40-54) 09/21/23 11:25 Plt Count 162 K/mm3 (150-450) 09/21/23 11:25 CHEMISTRY Potassium 3.9 mmol/L (3.5-5.1) 09/21/23 11:25 Sodium 139 mmol/L (136-145) 09/21/23 11:25 BUN 19 mg/dL (7-18) H 09/21/23 11:25 Creatinine 1.02 mg/dL (0.70-1.30) 09/21/23 11:25 Glucose 158 mg/dL (74-106) H 09/21/23 11:25 TSH 0.99 uIU/mL (0.358-3.74) 05/03/21 11:36 COAG Pre-Assessment Diagnosis/Proposed Procedure Planned Operative Procedure(s): (B) Lap Robotic bilateral Inguinal Hernia w/mesh & umbilical hernia, umbilicoplasty & possible omentectomy Anesthesia History 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 When Was Last Pacemaker Check QUESTION #4 FULL TEXT: You/Your Family Experience fever (hyperthermia) with Anesthesia Last Oral Intake Last Oral intake: Last Oral Intake NPO since 00:00 11/25/23 06:23 Meds taken in AM with sips of Yes 11/25/23 06:23 water? 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 Female No 11/11/23 10:46 HX of Motion Sickness No 11/11/23 10:46 HX of N/V After Surgery No 11/11/23 10:46 Non-Smoker Yes 11/11/23 10:46 Duration of Surgery greater Yes 11/11/23 10:46 than 60 minutes Number of Risk Factors 2 11/11/23 10:46 PONV Score Moderate Risk 11/11/23 10:46 Height & Weight Height & Weight: Anesthesia: Height & Weight Height 5 ft 10 in 11/25/23 06:23 Weight: 84.8 kg 11/25/23 06:23 Body Mass Index (BMI) 26.8 11/25/23 06:23 Respiratory Assessment Respiratory Assessment - motor vehicle license clerk: Respiratory Tract Infection Hx - 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 PT 11/11/23 10:46 FEELS RESOLVED STOP Sleep Apnea STOP Sleep Apnea - motor vehicle license clerk: STOP Sleep Apnea - motor vehicle license clerk Hx Hypertension Yes: CONTROLLED ON MED 11/11/23 10:46 Hx Sleep Apnea No 11/11/23 10:46 CPAP BIPAP Do you snore loudly (louder Yes 11/11/23 10:46 than talking or can be heard Do you often feel tired/ No 11/11/23 10:46 fatigued/ sleepy during daytime? Has anyone observed you stop No 11/11/23 10:46 breathing during sleep? STOP Results Positive 11/11/23 10:46 QUESTION #5 FULL TEXT : Do you snore loudly (louder than talking or can be heard through closed doors)? 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 Specify any problems Hx of Preganancy in last 3 N/A 11/11/23 10:46 Months Nurse Filling Out Transfusion VCHRISTIN 11/11/23 10:46 & Questions: Date: 11/11/23 11/11/23 10:46 Time: 10:47 11/11/23 10:46 Patient unable to answer at this time (ie. confused, unrespo /Reproduction History /Reproductive History - motor vehicle license clerk: /Reproductive Hx- motor vehicle license clerk Hx Now Gestational Age (in weeks): EDC: Hx Hx Para Hx Section SAB Active Medications Active Medications: Current Medications Generic Name Dose Route Start Last Admin Trade Name Freq PRN Reason Stop Dose Admin Cefazolin Sodium 2 gm/ Sodium 110 mls @ 150 mls/hr 11/25/23 07:30 Chloride IV 11/25/23 08:13 PREOP ONE Lactated Ringer's 1,000 mls @ 15 mls/hr 11/25/23 06:15 11/25/23 06:30 IV 15 mls/hr .Q48H LUISA Administration PFSH Medical History (Updated 11/11/23 @ 10:45 by Liat Harden) History of steroid therapy High cholesterol Heartburn Former smoker Leg cramps History of echocardiogram History of stress test Cardiology follow-up encounter Preoperative cardiovascular examination History of left heart catheterization (LHC) (~09/08/99) Paroxysmal atrial fibrillation Essential hypertension Pure hypercholesterolemia Atherosclerotic heart disease of [place] coronary artery without angina pectoris Incarcerated ventral hernia Screening for intestinal cancer Epigastric pain History of [place] (myocardial infarction) Hypercholesterolemia Hypertension Heart disease Home Medications ?Medication ?Instructions ?Recorded ?Last Taken ?Type aspirin 81 mg tablet,delayed 81 mg PO DAILY 07/27/21 11/24/23 History release (Adult Low Dose Aspirin) atorvastatin 40 mg tablet (Lipitor) 40 mg PO DAILY 01/22/23 11/24/23 History metoprolol tartrate 50 mg tablet 25 mg PO BID 01/22/23 11/25/23 History (Lopressor) amlodipine 2.5 mg tablet (Norvasc) 2.5 mg PO DAILY #90 tabs 10/08/23 11/25/23 Rx Allergy/AdvReac Type Severity Reaction Status Date / Time ramipril (From Altace) AdvReac Unknown GI Issues Verified 11/11/23 10:26 Family History Father Cancer Lung Mother Myocardial infarction, Onset Age: 93 Surgical History (Updated 11/11/23 @ 10:45 by Liat Harden) Hx of rhinoplasty History of shoulder surgery History of coronary artery bypass surgery (~06/15/16) History of angioplasty History of coronary artery stent placement History of bilateral inguinal hernia repair Social History Smoking Status: Former smoker alcohol intake: current alcohol intake frequency: holidays/special occasions only substance use type: does not use caffeine: Yes Type: coffee Number of servings: 2 Review of Systems (Anesthesia) ROS Narrative System reviewed and no additional complaints, except as documented.
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
--- NOTE | 2023-11-25 07:17 | CON.PCM.SX_ITS ---
Assessment & Plan Assessment/Plan (1) Umbilical hernia: PLAN: Plan I will plan to assist Dr. Gonzalez with umbilicoplasty later this morning following the hernia repair. Patient understands the plans for local soft tissue rearrangement. Understands risks of possible wounds, need for wound care, tissue necrosis. I talked the patient about other risks of surgery, including bleeding, infection, damage to surrounding structures, surgical site dehiscence, need for repeat operations, and failure to obtain the desired result. All of their questions were answered, and they agreed to proceed with surgery. HPI Consult Data Date of Consult: 11/25/23 HPI Narrative HPI Narrative: SHANIKA ANDERSON, is a 72 M who presents today for an umbilical hernia repair with Dr. King Gonzalez from general surgery. Dr. Gonzalez consulted me this morning for assistance with umbilicoplasty following the hernia repair. Patient reports that he's had the umbilical hernia for several years and that it's been enlarging. Imaging demonstrated chronic fat incarceration. No recent infections/skin inflammation. Not a smoker History of CABG in 2017. Follows consistently with the heart team here at [facility]. [facility] Medical History History of steroid therapy High cholesterol Heartburn Former smoker Leg cramps History of echocardiogram History of stress test Cardiology follow-up encounter Preoperative cardiovascular examination History of left heart catheterization (LHC) (~09/08/99) Paroxysmal atrial fibrillation Essential hypertension Pure hypercholesterolemia Atherosclerotic heart disease of [place] coronary artery without angina pectoris Incarcerated ventral hernia Screening for intestinal cancer Epigastric pain History of [place] (myocardial infarction) Hypercholesterolemia Hypertension Heart disease Home Medications ?Medication ?Instructions ?Recorded ?Last Taken ?Type aspirin 81 mg tablet,delayed 81 mg PO DAILY 07/27/21 11/24/23 History release (Adult Low Dose Aspirin) atorvastatin 40 mg tablet (Lipitor) 40 mg PO DAILY 01/22/23 11/24/23 History metoprolol tartrate 50 mg tablet 25 mg PO BID 01/22/23 11/25/23 History (Lopressor) amlodipine 2.5 mg tablet (Norvasc) 2.5 mg PO DAILY #90 tabs 10/08/23 11/25/23 Rx Allergy/AdvReac Type Severity Reaction Status Date / Time ramipril (From Altace) AdvReac Unknown GI Issues Verified 11/11/23 10:26 Family History Father Cancer Lung Mother Myocardial infarction, Onset Age: 93 Surgical History Hx of rhinoplasty History of shoulder surgery History of coronary artery bypass surgery (~06/15/16) History of angioplasty History of coronary artery stent placement History of bilateral inguinal hernia repair Social History Smoking Status: Former smoker alcohol intake: current alcohol intake frequency: holidays/special occasions only substance use type: does not use caffeine: Yes Type: coffee Number of servings: 2 Physical Exam Narrative Abdomen Large umbilical hernia. Could not reduce. Skin is thinning over the herniated contents. No surrounding inflammation or signs of infection. Charges/Coding Visit Charges Office Visits / Consults: [id number] OV L3 New 30min
[2023-11-25] MEDS: Cefazolin 2 GM in 0.9% Normal Saline (100mL Bag) 100 ML IV (07:46)
[2023-11-25] MEDS: Bupivacaine 0.25% 30 ML Vial (09:42)
[2023-11-25] MEDS: BUPIVACAINE LIPOSOME/PF 20 ML VIAL OPERA.SITE (09:42)
[2023-11-25] MEDS: 0.9% Normal Saline (Pres. free 10 ML Vial (09:42)
--- NOTE | 2023-11-25 12:28 | OP.PCM_ITS ---
Report of Operation Date of Procedure: 11/25/23 Pre-Operative Diagnosis: Chronically incarcerated umbilical hernia with omentum Post-Operative Diagnosis: Same Surgery/Procedure Performed:: 1. Robot-assisted umbilical hernia repair with mesh placement 2. Umbilicoplasty Description of Surgical Findings:: ? Viable omentum within attenuated hernia sac ? 3 cm fascial defect ? Laparoscopic evidence of bilateral direct inguinal hernias Surgeon: Khoa Gonzalez denial resolution specialist: Palmer Machuca denial resolution specialist: Daniel Cabrera Type of Anesthesia: General/Supplemental Anesthesiologist: Kevin Braun Specimen's removed: 1. Hernia sac 2. Redundant umbilical skin Drains: None Estimated Blood Loss (mL): 20 Description of Procedure: After appropriate identification in the preoperative holding area, the patient was brought to the operating room suite where he was positioned supine the operating table. Preoperative antibiotics were administered. Patient was then induced with a general anesthetic. Patient's abdomen was prepped and draped in the usual sterile fashion. A formal timeout followed to confirm patient and procedure. Procedure was begun with a 3 cm infraumbilical curvilinear incision directly adjacent to the inferior aspect of patient's hernia sac. I then made a vertical incision extending along the inferior aspect of patient's hernia sac until we reached the apex of the hernia. Tediously I used a combination of blunt dissection and selective electrocautery to free the underlying hernia sac and contents from the overlying attenuated umbilical skin. Once this separation was complete I then cleared the fascial edges circumferentially of soft tissue adhesions. Then the hernia sac was bisected and I encountered well?perfused/viable omentum. I attempted manual reduction of these contents but found a significant size mismatch between the volume of the omentum and the just over 3 cm diameter fascial defect. To compensate for this mismatch I extended the fascial defect by approximately 1.5 cm caudad and cephalad. With this enlargement of the opening I was then successful with manual reduction of the hernia contents back to the peritoneal cavity. Next the fascial defect was used as an entry point for patient's 10 x [address] mesh as well as a vantage point for placement of our initial trocar in the left upper quadrant. Then the defect was closed using running #1 Prolene suture in a bidirectional fashion and tying in the middle. Pneumoperitoneum was established and laparoscopic investigation revealed no inadvertent injury to the viscera below. Two additional 8 mm robotic trocars were placed along the abdominal wall laterally taking care to avoid the bony prominences of the costal margin and the ASIS. A transversus abdominis plane block was created with 100 mL of a combination cocktail using Exparel, Marcaine, and injectable saline under laparoscopic vision. The robot was then brought in and docked in standard fashion. Robotically a peritoneal flap was raised approximately 2 cm medial from my trocars and carried this away towards the contralateral abdominal wall. However, as I neared the now?closed hernia defect the peritoneal lining proved to be too attenuated and simply shredded with the slightest traction. Thus this preperitoneal placement was abandoned and I used limited electrocautery to take down some post peritoneal fat inferiorly as well as the falciform ligament superiorly. I then addressed the hernia closure directly and measured my dissection to that point. I found a substantial diastasis superiorly that would have compromised the lie of my mesh so I chose to reapproximate the rectus bellies in this location with a #1 stratafix suture by running the fascial defect closed for a span of approximately 6cm and then running the suture back upon itself. Next the 10 x 15 cm Ventralight mesh was tacked up to the underside of the the peritoneum and a 3-0 V-Loc suture was used to chandelier the mesh. This V-Loc suture was then run towards the operating side of the opening. A second 3-0 V-Loc suture was used to approximate the longitudinal midline of the mesh to the patient's midline. Then additional 3-0 V-Loc sutures were used to run the circumference of the mesh against the underside of the abdominal wall. A 3-0 Vicryl suture was used to loosely tacked some viable fatty post peritoneal tissue to the underside of the mesh to act as a barrier to adhesions and try to preserve the peritoneal edge from that point inferiorly. The needles were removed from the robot under laparoscopic visualization and pne umoperitoneum was released. The robot was then undocked and the trocars were removed. It was at this point then I was joined by Dr. Machuca for the umbilicoplasty portion of the case. Please see his dictation for complete details. However, concerning our 3 lateral ports, additional local anesthetic was instilled and the port sites were closed with interrupted 4-0 Monocryl in subcuticular fashion. Dermabond was applied. Patient was transferred to PACU for ongoing care. Grafts/Implants Used: Ventralight ST ref:[id number], Lot:[id number], expiration 01/13/2024 Complications None Admit VTE Documentation VTE Mechan Device Prophylaxis: SCD's Procedures Digestive 40xxx-49xxx: 60050 RPR AA HRN RCR 3-10 NCR/STRN
--- NOTE | 2023-11-25 12:34 | DCINST_ITS ---
Discharge Instructions Diet Discharge Diet: No restrictions Activity May shower in (days): 2 Ice area for (Minutes): 20 Lifting Restrictions: No lifting greater than 10 pounds x 5 weeks postop Dressing / Incision Call your doctor if your incision/area has: Sudden Increased Bleeding, Increased Pain/ Swelling, Increased Redness, Foul Smelling Discharge and Swelling at the incision site Call your doctor if you observe: Fever of 101 or Higher Remove Dressing in: 5 days Cleanse incision/area with: Soap & Water Follow Up Care Please Follow Up With: Khoa Gonzalez MD When: 7-10 days postop Test Results: Test results from this visit will be discussed in further detail at your follow- up appointment, if applicable. Discharge Plan Admission Primary Reason for Your Visit: Umbilical hernia repair Attending Provider: Khoa Gonzalez Primary Care Provider: Flaca Estrella Instructions Print Language: Barbadian Discharge Orders/Prescriptions Prescriptions: New oxycodone 5 mg tablet 5 mg PO Q6H PRN (Reason: pain) 3 Days Qty: 10 0RF Continued aspirin [Adult Low Dose Aspirin] 81 mg tablet,delayed release (DR/EC) 81 mg PO DAILY atorvastatin [Lipitor] 40 mg tablet 40 mg PO DAILY metoprolol tartrate [Lopressor] 50 mg tablet 25 mg PO BID amlodipine [Norvasc] 2.5 mg tablet 2.5 mg PO DAILY Qty: 90 3RF Referrals / Follow Up: Flaca Estrella MD [Primary Care Provider] - Disposition Disposition (needs filled in before D/C Order can be placed): Home, Self Care
--- NOTE | 2023-11-25 12:39 | PCM.POST.ANE ---
Anesthesia: Postop Eval I Current Vital Signs Temperature: 98.2 F Pulse Rate: 73 Blood Pressure: 154/73 Respiratory Rate: 16 Pulse Ox: 93 Assessment Airway patent: Yes Spontaneous unlabored respirations: Yes nausea: No Vomiting: No Anesthesia Complication: No Fluid Hydration Crystalloid volume administer (ml): 2,000 Total IV fluid infused: 2,000 Progress Note Anesthesia document: Postop Eval 1 completed: Yes
--- NOTE | 2023-11-25 12:40 | PCM.POSTANE2 ---
Anesthesia Postop Eval I Sum Postop Eval Completion status Anesthesia document: Postop Eval 1 completed: Yes Anesthesia Postop Eval I Summary Anesthesia Postop Eval I Summary: Anesthesia Postop Eval I: Assessment Summary Airway patent Yes 11/25/23 12:39 Spontaneous unlabored Yes 11/25/23 12:39 respirations Mental status nausea No 11/25/23 12:39 Vomiting No 11/25/23 12:39 Anesthesia Postop Eval I: Fluid Summary Crystalloid volume administer 2,000 11/25/23 12:39 (ml) Colloids volume administered ( ml) Blood Product volume administered (ml) Total IV fluid infused 2,000 11/25/23 12:39 Anesthesia Postop Eval I: Summary Notes Anesthesia Complication No 11/25/23 12:39 Anesthesia Complication Comment: Post-operative progress note Anesthesia: Postop Eval II Evaluation Mental status: Awake Pain Level: 1 nausea: No Vomiting: No
--- NOTE | 2023-11-25 12:43 | EKG12_ITS ---
Test Reason : ST ELEVATION Blood Pressure : / mmHG Vent. Rate : 066 BPM Atrial Rate : 066 BPM P-R Int : 156 ms QRS Dur : 094 ms QT Int : 440 ms P-R-T Axes : 034 000 055 degrees QTc Int : 461 ms Normal sinus rhythm Low voltage QRS Borderline ECG No previous ECGs available Confirmed by DIMITRIS NEW, RACHEL ([id number]), society editor KENDELL PIMENTEL ([id number]) on 11/28/2023 11:21:40 AM Referred By: Khoa Gonzalez Confirmed By:RACHEL SHANKS MD
[2023-11-25 13:13] LABS: Troponin-I HS 9 pg/mL (3.0-78.0)
--- NOTE | 2023-11-25 13:21 | OP.PCM_ITS ---
Operative Report Date of Procedure: 11/25/23 Surgery/Procedure Date: 25 November 2023 Incision/Procedure Start Time: 7: 40 am Incision Close/Procedure End Time: 12:39 pm PATIENT: Duncan Gregorio GENERAL SURGEON: Khoa Gonzalez MD PLASTIC SURGEON: Palmer Machuca MD PRE-OPERATIVE DIAGNOSIS: Umbilical Hernia POST-OPERATIVE DIAGNOSIS: Same PROCEDURE PERFORMED: 1) Umbilicoplasty via local soft tissue rearrangement, 6 x 7 cm (CPT 78435) OPERATIVE FINDINGS: Residual hernia skin, devitalized, with large circular full-thickness defect down to fascia. Hernia skin was excised back to healthy bleeding abdominal tissue on the margins of the hernia defect. INDICATIONS: Duncan Gregorio is a 72-year-old male with past medical history including an umbilical hernia. I was consulted by the general surgery team this morning to be involved in his care. Dr. Gonzalez asked me to help with the recreation of an umbilicus following umbilical hernia repair. I met the patient in preoperative holding and consented him. We talked about the risks of surgery. I talked the patient extensively about infection, surgical site dehiscence and wound formation, need for wound care, need for repeat operations, failure to obtain the desired result with mesh exposure and need for removal of foreign body at the base of the wound. All of their questions were answered, and they agreed to proceed with surgery. OPERATIVE DETAILS: Patient was taken back to the operating room by Dr. Gonzalez for umbilical hernia repair. Please see separate operative note for this portion of the procedure. Plastic surgery was called in the room following the hernia repair. The mesh had been placed as an underlay beneath the fascia and the only foreign body above the fascia were Prolene sutures. We began the procedure by excising the devitalized residual hernia sac tissue/skin with curved Blake scissors. I then created two separate 2 x 1 cm advancement rectangular flaps on the lateral margins of the wound with curved Blake scissors. The edges of these flaps were then sutured to the base of the wound on the fascia with 2-0 PDS suture to make an indentation to recreate an umbilicus. I then created (with 15 blade and Bovie via undermining) W-plasty advancement flaps superiorly and inferiorly by creating triangular cranial and caudal flaps that were advanced and sutured to the skin of the rectangular advancement flaps with 3-0 Monocryl deep dermal sutures. The dogears at the [facility] next the triangular flaps were then excised with curved Blake scissors. This created a deeper indentation with rectangular flaps and a slightly lesser indentation with the W-plasty flaps. The total area of local soft tissue rearrangement and advancement was 6 x 7 cm. The incisions were closed with 3-0 Monocryl deep dermal sutures followed by 4-0 Monocryl running subcuticular sutures. Dermabond was applied. Patient was awaken and taken to the PACU in stable condition. EBL: 20 cc total operation Anesthesia: General ASA: 3 IVF: 2.4 L of LR UOP: 600 cc Transfusions: none POST-OPERATIVE PLAN: F/u with PSU in clinic in 1 week to examine wounds.
--- NOTE | 2023-11-26 | HERN_PTH ---
PATIENT: SHANIKA ANDERSON LOC: [facility] [place] U#:[id number] AGE/SX: 72/M ROOM: RE11/25/[address]: Dr. Khoa Gonzalez MD : 1950 BED: DIS: 11/25/2023 SPEC #: [id number] RECD: 11/26/23 10:21 STATUS: TYRONE BRISEIDA #: [id number] RA: 11/26/23 00:[address]: Khoa Gonzalez DEPT: SURGICAL PATHOLOGY RECD BY: Logan Skinner ENTERED: 11/26/23 10:22 SP TYPE: Hernia OTHR DR: Dr. Flaca Estrella MD Tissues: A - HERNIA B - Umbilical region Procedures: Surgery Specimen Level II HEADER OPERATION: Laparoscopic robotic umbilical hernia, umbilicoplasty PRE-OP DIAGNOSIS: Umbilical hernia, recurrent bilateral inguinal hernia TISSUE SUBMITTED: A- Hernia sac, B- Umbilical skin MICROSCOPIC DIAGNOSIS A. Hernia sac, herniorrhaphy: Fibrosis and mild chronic inflammation. B. Skin from umbilical region, excision: Mild hyperkeratosis. Minimal dermal chronic inflammation. / 11/27/2023 MICROSCOPIC DESCRIPTION Slides are reviewed. GROSS DESCRIPTION A. Received in fixative is one container labeled with the patient's name and designated Hernia sac. The specimen consists of two pieces of congested soft tissue measuring in aggregate 11.0 x 7.0 x 2.0cm. No mass lesion is identified. Mobile Application Development Lead sections are submitted in two cassettes. B. Received in fixative is one container labeled with the patient's name and designated Umbilical skin. The specimen consists of a piece of gustafson-white to light brown congested irregular piece of skin measuring 19.0 x 9.0 x 0.2cm. Focal area of ulceration is noted. Skin appears markedly wrinkled. No obvious mass lesion is identified. Mobile Application Development Lead sections are submitted in one cassette. / 11/26/2023 TC:3 CPT:32262, 16746
== END 2023-11-25 16:39 | disposition home or self-care (01) ==
LOC: SDC 06:05 → AC 06:07
PROVIDERS: Anesthesiology; PCP Family Medicine; Referring Provider Surgery; Visit Provider Surgery
PROC: (CPT 49594; principal; 2023-11-25 07:10)
DX: K42.9 Umbilical hernia without obstruction or gangrene (principal); Z79.82 Long term (current) use of aspirin; I10 Essential (primary) hypertension; E78.00 Pure hypercholesterolemia, unspecified; Z87.891 Personal history of nicotine dependence; I25.10 Atherosclerotic heart disease of native coronary artery without angina pectoris; K40.21 Bilateral inguinal hernia, without obstruction or gangrene, recurrent; Z95.1 Presence of aortocoronary bypass graft; Z87.19 Personal history of other diseases of the digestive system; K21.9 Gastro-esophageal reflux disease without esophagitis; Z79.899 Other long term (current) drug therapy
CPT/HCPCS: 49594; S2900; 14301; 00750; 84484; 88302; 93005; J7120; C1781; J2405; J3490

== ENCOUNTER → 2024-01-20 | Outpatient (CLI) | payer MEDICARE, SELFPAY ==
[2024-01-20 12:53] LABS: Protein, Urine (Random) < 6.0 mg/dL (<11.9)
[2024-01-20 13:09] LABS: AST(SGOT) 23 U/L (15-37); Alanine Aminotransfer ALT/SGPT 31 U/L (16-61); Anion Gap 5 (5-15); BUN 17 mg/dL (7-18); BUN/Creat Ratio 19.7 RATIO (10-20); Calcium,Total 8.9 mg/dL (8.5-10.1); Chloride 107 mmol/L (98-107); Cholesterol 131 mg/dL (200); Creatinine, Serum 0.86 mg/dL (0.70-1.30); EST Glomerular Filtration Rate 92 mL/min (>60); Est Glom Filt Rate - Afr Amer 112 mL/min (>60); Glucose 98 mg/dL (74-106); High Density Lipoprotein 39 mg/dL; Potassium 4.3 mmol/L (3.5-5.1); Sodium Level 140 mmol/L (136-145); Triglycerides 132 mg/dL; Very Low Density Lipoprotein 26 mg/dL (5-40)
== END | disposition home or self-care (01) ==
LOC: MFPLAB 10:41
PROVIDERS: PCP Family Medicine; Visit Provider Family Medicine
DX: E78.00 Pure hypercholesterolemia, unspecified (principal); I10 Essential (primary) hypertension
CPT/HCPCS: 36415; 80048; 80061; 82570; 84156; 84443; 84450; 84460

== ENCOUNTER 2024-07-02 05:32 | Day surgery (SDC) | payer MEDICARE, SELFPAY ==
--- NOTE | 2024-06-24 16:25 | PAT.ANESEVAL ---
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 When Was Last Pacemaker Check QUESTION #4 FULL TEXT: You/Your Family Experience fever (hyperthermia) with Anesthesia Last Oral Intake Last Oral intake: Last Oral Intake NPO since Meds taken in AM with sips of water? Meds patient instructed to take am of surgery PONV PONV - explosive ordnance handler: PONV - explosive ordnance handler Female No 06/24/24 15:33 HX of Motion Sickness No 06/24/24 15:33 HX of N/V After Surgery No 06/24/24 15:33 Non-Smoker Yes 06/24/24 15:33 Duration of Surgery greater Yes 06/24/24 15:33 than 60 minutes Number of Risk Factors 2 06/24/24 15:33 PONV Score Moderate Risk 06/24/24 15:33 Height & Weight Height & Weight: Anesthesia: Height & Weight Height 5 ft 10 in 03/31/24 09:35 Respiratory Assessment Respiratory Assessment - explosive ordnance handler: Respiratory Tract Infection Hx - explosive ordnance handler Hx Respiratory Tract Infection No 06/24/24 15:33 STOP Sleep Apnea STOP Sleep Apnea - explosive ordnance handler: STOP Sleep Apnea - explosive ordnance handler Hx Hypertension Yes: CONTROLLED ON MED 06/24/24 15:33 Hx Sleep Apnea No 06/24/24 15:33 CPAP BIPAP Do you snore loudly (louder No 06/24/24 15:33 than talking or can be heard Do you often feel tired/ Yes 06/24/24 15:33 fatigued/ sleepy during daytime? Has anyone observed you stop No 06/24/24 15:33 breathing during sleep? STOP Results Positive 06/24/24 15:33 QUESTION #5 FULL TEXT : Do you snore loudly (louder than talking or can be heard through closed doors)? 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 Specify any problems Hx of Preganancy in last 3 N/A 06/24/24 15:33 Months Nurse Filling Out Transfusion DSCHRIBER 06/24/24 15:33 & Questions: Date: 06/24/24 06/24/24 15:33 Time: 15:35 06/24/24 15:33 Patient unable to answer at this time (ie. confused, unrespo /Reproduction History /Reproductive History - explosive ordnance handler: /Reproductive Hx- explosive ordnance handler Hx Now No 06/24/24 15:33 Gestational Age (in weeks): EDC: Hx Hx Para Hx Section SAB No 06/24/24 15:33 PFSH Medical History (Updated 06/24/24 @ 15:40 by Nicole Adames) Loss of hearing Wears glasses Alcohol use Back pain Shortness of breath on exertion High cholesterol Heartburn Former smoker Leg cramps History of echocardiogram History of stress test Cardiology follow-up encounter Preoperative cardiovascular examination History of left heart catheterization (LHC) (~09/08/99) Paroxysmal atrial fibrillation Essential hypertension Pure hypercholesterolemia Atherosclerotic heart disease of [place] coronary artery without angina pectoris Incarcerated ventral hernia Screening for intestinal cancer Epigastric pain Hypercholesterolemia Hypertension Home Medications ?Medication ?Instructions ?Recorded ?Last Taken ?Type aspirin 81 mg tablet,delayed 81 mg PO DAILY 07/27/21 11/24/23 History release (Adult Low Dose Aspirin) atorvastatin 40 mg tablet (Lipitor) 40 mg PO QHS 01/22/23 11/24/23 History metoprolol tartrate 50 mg tablet 25 mg PO BID 01/22/23 11/25/23 History (Lopressor) amlodipine 2.5 mg tablet (Norvasc) 2.5 mg PO DAILY #90 tabs 12/27/23 Unknown Rx Allergy/AdvReac Type Severity Reaction Status Date / Time ramipril (From Altace) AdvReac Unknown GI Issues Verified 06/24/24 15:30 Family History Father Cancer Lung Mother Myocardial infarction, Onset Age: 93 Surgical History (Updated 06/24/24 @ 15:40 by Nicole Adames) Hx of CABG Hx of umbilical hernia repair Hx of rhinoplasty History of shoulder surgery History of coronary artery bypass surgery (~06/15/16) History of angioplasty History of coronary artery stent placement History of bilateral inguinal hernia repair Social History Smoking Status: Former smoker how long ago did patient quit smoking: quit in 1979 alcohol intake: current alcohol intake frequency: holidays/special occasions only substance use type: does not use caffeine: Yes Type: coffee Number of servings: 2 additional social history: denies vaping, denies marijuana use denies edibles, uses aspirin daily, ibuprofen as needed no family history blood clotting disorder Audit: Pertinent Findings Pertinent Findings EKG Perinent findings: 11/25/2023. Normal sinus rhythm 66 bpm low voltage. Consult pertinent findings: Cardiology 03/31/2024. Coronary artery bypass surgery. 6 vessel. 2017. Stable. No angina. Hypertension. Controlled on current medications. EF 60%. Recommendation Anesthesia Recommendation Anesthesia recommendation: OPTIMIZED for anesthesia
[2024-06-29 14:39] LABS: Hematocrit 43.5 % (40-54); Hemoglobin 14.8 g/dL (13.0-16.5); Mean Corpuscular Hgb 28.7 pg (27.0-32.0); Mean Corpuscular Volume 84.5 fL (80-94); Mean Platelet Vol. 10.8 fl (6.2-12.0); Platelet Count 169 K/mm3 (150-450); RBC Distribution Width CV 13.1 % (11.6-14.6); RBC Distribution Width SD 40.5 fl (35.1-43.9); Red Blood Count 5.15 M/mm3 (4.6-6.2); White Blood Count 5.6 K/mm3 (4.4-11.0)
[2024-06-29 17:53] LABS: Anion Gap 9 (5-15); BUN 21 mg/dL (4-19); BUN/Creat Ratio 22.4 RATIO (10-20); Calcium,Total 9.1 mg/dL (7.6-11.0); Carbon Dioxide 25.6 mmol/L (21.0-32.0); Chloride 105 mmol/L (98-108); Creatinine, Serum 0.93 mg/dL (0.70-1.20); EST Glomerular Filtration Rate 87 (>60); Glucose 108 mg/dL (70-99); Potassium 3.8 mmol/L (3.3-5.1); Sodium Level 140 mmol/L (133-145)
[2024-07-02] VITALS (13 sets, daily range): BP systolic 136–172; BP diastolic 72–97; PULSE 51–78; RESP 16–18; TEMP 36.6–37.2; O2SAT 91–100; BMI 27.2
[2024-07-02] MEDS: 0.9% Normal Saline (1000mL) 1,000 ML 15 ML IV (06:08)
--- NOTE | 2024-07-02 06:12 | PRE.ANES_ITS ---
ASA Classification* ASA Classification ASA Classification: 3 Assessment & Plan Anesthesia* Anesthesia Assessment Anesthesia Assessment: Discussed sedation and/or anesthesia options, risks, benefits, and alternatives with patient/parents/legal guardian/POA. Questions invited. The patient/parents/legal guardian/POA seems to understand and agrees to proceed with anesthesia plan. Reviewed the physical assessment, medical history, allergy history and patient home medications list prior to surgery/procedure/anesthetic and documented any changes. Performed airway and anesthesia risk assessments. Anesthesia Type Anesthesia Type: General Anesthesia Focused Assessment* Temperature: 97.9 F Pulse Rate: 51 Blood Pressure: 172/82 Respiratory Rate: 16 Pulse Ox: 98 Airway Assessment Mouth opens: >3 cm Mallampati Score: II Focused Labs Anesthesia Preop lab: CBC WBC 5.6 K/mm3 (4.4-11.0) 06/29/24 14:16 06/29/24 RBC 5.15 M/mm3 (4.6-6.2) 06/29/24 14:16 06/29/24 Hgb 14.8 g/dL (13.0-16.5) 06/29/24 14:16 06/29/24 Hct 43.5 % (40-54) 06/29/24 14:16 06/29/24 Plt Count 169 K/mm3 (150-450) 06/29/24 14:16 06/29/24 CHEMISTRY Potassium 3.8 mmol/L (3.3-5.1) 06/29/24 14:16 06/29/24 Sodium 140 mmol/L (133-145) 06/29/24 14:16 06/29/24 BUN 21 mg/dL (4-19) H 06/29/24 14:16 06/29/24 Creatinine 0.93 mg/dL (0.70-1.20) 06/29/24 14:16 06/29/24 Glucose 108 mg/dL (70-99) H 06/29/24 14:16 06/29/24 TSH 1.150 uIU/mL (0.358-3.740) 01/20/24 10:46 11/0 07/09 COAG Pre-Assessment Diagnosis/Proposed Procedure Planned Operative Procedure(s): ROBOTIC BILAT INGUINAL HERNIA WITH MESH Anesthesia History 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 When Was Last Pacemaker Check QUESTION #4 FULL TEXT: You/Your Family Experience fever (hyperthermia) with Anesthesia Last Oral Intake Last Oral intake: Last Oral Intake NPO since 18:00 07/02/24 06:00 Meds taken in AM with sips of Yes 07/02/24 06:00 water? Meds patient instructed to take am of surgery PONV PONV - meter and service line inspector: PONV - meter and service line inspector Female No 06/24/24 15:33 HX of Motion Sickness No 06/24/24 15:33 HX of N/V After Surgery No 06/24/24 15:33 Non-Smoker Yes 06/24/24 15:33 Duration of Surgery greater Yes 06/24/24 15:33 than 60 minutes Number of Risk Factors 2 06/24/24 15:33 PONV Score Moderate Risk 06/24/24 15:33 Height & Weight Height & Weight: Anesthesia: Height & Weight Height 5 ft 10 in 07/02/24 06:00 Weight: 86.183 kg 07/02/24 06:00 Body Mass Index (BMI) 27.2 07/02/24 06:00 Respiratory Assessment Respiratory Assessment - meter and service line inspector: Respiratory Tract Infection Hx - meter and service line inspector Hx Respiratory Tract Infection No 06/24/24 15:33 STOP Sleep Apnea STOP Sleep Apnea - meter and service line inspector: STOP Sleep Apnea - meter and service line inspector Hx Hypertension Yes: CONTROLLED ON MED 06/24/24 15:33 Hx Sleep Apnea No 06/24/24 15:33 CPAP BIPAP Do you snore loudly (louder No 06/24/24 15:33 than talking or can be heard Do you often feel tired/ Yes 06/24/24 15:33 fatigued/ sleepy during daytime? Has anyone observed you stop No 06/24/24 15:33 breathing during sleep? STOP Results Positive 06/24/24 15:33 QUESTION #5 FULL TEXT : Do you snore loudly (louder than talking or can be heard through closed doors)? Tobacco Use History Tobacco Use History - meter and service line inspector: Tobacco Use History - meter and service line inspector Tobacco Use Smoking Status Former smoker 06/24/24 15:33 Hx Tobacco Use No 06/24/24 15:33 Years Smoking Packs Smoked per Day Smoking Cessation Date was No - quit smoking greater 06/24/24 15:33 within the last 15 years than 15 years ago Hx Smoking Cessation Date Hx Smoking Cessation No 06/24/24 15:33 Counseling Hematologic Medial History Hematologic Hx - meter and service line inspector: Hematologic Medical Hx - wire inspector Hx of Blood Transfusion No 06/24/24 15:33 Hx of Transfusion in last 3 No 06/24/24 15:33 Months Date of Last Transfusion (if within last 3 months) Ever experience any problems No 06/24/24 15:33 with transfusion(s)? Specify any problems Hx of Preganancy in last 3 N/A 06/24/24 15:33 Months Nurse Filling Out Transfusion DSCHRIBER 06/24/24 15:33 & Questions: Date: 06/24/24 06/24/24 15:33 Time: 15:35 06/24/24 15:33 Patient unable to answer at this time (ie. confused, unrespo /Reproduction History /Reproductive History - meter and service line inspector: /Reproductive Hx- meter and service line inspector Hx Now No 06/24/24 15:33 Gestational Age (in weeks): EDC: Hx Hx Para Hx Section SAB No 06/24/24 15:33 Active Medications Active Medications: Current Medications Generic Name Dose Route Start Last Admin Trade Name Freq PRN Reason Stop Dose Admin Cefazolin Sodium 2 gm/ N/A 20 mls @ 400 mls/hr 07/02/24 07:30 IV 07/02/24 07:32 INTRAOP ONE Sodium Chloride 1,000 mls @ 15 mls/hr 07/02/24 05:45 07/02/24 06:08 IV 15 mls/hr .Q48H LUISA Administration PFSH Medical History Loss of hearing Wears glasses Alcohol use Back pain Shortness of breath on exertion High cholesterol Heartburn Former smoker Leg cramps History of echocardiogram History of stress test Cardiology follow-up encounter Preoperative cardiovascular examination History of left heart catheterization (LHC) (~09/08/99) Paroxysmal atrial fibrillation Essential hypertension Pure hypercholesterolemia Atherosclerotic heart disease of [place] coronary artery without angina pectoris Incarcerated ventral hernia Screening for intestinal cancer Epigastric pain Hypercholesterolemia Hypertension Home Medications ?Medication ?Instructions ?Recorded ?Last Taken ?Type aspirin 81 mg tablet,delayed 81 mg PO DAILY 07/27/21 0 07/02/24 04:00 History release (Adult Low Dose Aspirin) atorvastatin 40 mg tablet (Lipitor) 40 mg PO QHS 01/2207/01/24 History metoprolol tartrate 50 mg tablet 25 mg PO BID 01/22/23 07/02/24 04:00 History (Lopressor) amlodipine 2.5 mg tablet (Norvasc) 2.5 mg PO QHS 07/0207/01/24 History Allergy/AdvReac Type Severity Reaction Status Date / Time ramipril (From Altace) AdvReac Unknown GI Issues Verified 07/02/24 05:58 Family History Father Cancer Lung Mother Myocardial infarction, Onset Age: 93 Surgical History Hx of CABG Hx of umbilical hernia repair Hx of rhinoplasty History of shoulder surgery History of coronary artery bypass surgery (~06/15/16) History of angioplasty History of coronary artery stent placement History of bilateral inguinal hernia repair Social History Smoking Status: Former smoker how long ago did patient quit smoking: quit in 1979 alcohol intake: current alcohol intake frequency: holidays/special occasions only substance use type: does not use caffeine: Yes Type: coffee Number of servings: 2 additional social history: denies vaping, denies marijuana use denies edibles, uses aspirin daily, ibuprofen as needed no family history blood clotting disorder Review of Systems (Anesthesia) ROS Narrative System reviewed and no additional complaints, except as documented.
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
--- NOTE | 2024-07-02 07:30 | HERN_PTH ---
PATIENT: SHANIKA ANDERSON [place] [facility] [place][id number] AGE/SX: 73/M ROOM: RE07/02/[address]: Dr. Khoa Gonzalez MD : 1950 BED: DIS: 07/02/2024 SPEC #: [id number] RECD: 07/02/24 13:30 STATUS: TYRONE BRISEIDA #: [id number] RA: 07/02/24 07:[address]: Khoa Gonzalez DEPT: SURGICAL PATHOLOGY RECD BY: Godwin Suarez ENTERED: 07/02/24 13:30 SP TYPE: Hernia OTHR DR: Dr. Flaca Estrella MD Tissues: A - HERNIA Procedures: Surgery Specimen Level II HEADER OPERATION: Laparoscopic robotic inguinal hernia with mesh PRE-OP DIAGNOSIS: Recurrent bilateral inguinal hernia TISSUE SUBMITTED: A- Cord lipoma MICROSCOPIC DIAGNOSIS A. Inguinal hernia, cord lipoma, removal: * Benign mature adipose tissue consistent with lipoma MICROSCOPIC DESCRIPTION Slides are reviewed. GROSS DESCRIPTION A. Received in formalin in a container labeled with the patient's name, date of , and cord lipoma are multiple gustafson-yellow, shaggy fragments of fatty tissue measuring 3.6 x 2.9 x 2.0 cm in aggregate. The largest fragments are sectioned to reveal gustafson-yellow, uniform surfaces with scattered hemorrhage. No necrosis is identified. Quality Systems Engineer sections are submitted in A1. [facility] 07/03/2024 CPT:[id number]
[2024-07-02] MEDS: Cefazolin 2 GM in Syringe IV (07:36)
--- NOTE | 2024-07-02 12:19 | OP.PCM_ITS ---
Operative Report (Standard) Operative Information Date of Procedure: 07/02/24 Pre-Operative Diagnosis: 1. Bilaterally recurrent inguinal hernias Post-Operative Diagnosis: 1. Small direct right inguinal hernia herniating retroperitoneal fat and cord lipoma (removed) through indirect defect 2. Moderate size direct left inguinal hernia with small cord lipoma Surgery/Procedure Performed: 1. Robot-assisted bilateral inguinal hernia repair with mesh placement 2. Adhesiolysis slide forming machine tender: Yes Merchant Mill Utility Worker: Isiah Ybarra Tasks completed by assistant family teacher: Opening & closing and Other (Inserting and removing suture) Type of Anesthesia: General/Supplemental RN Documented Start/Stop Times: Operation Date: 07/02/24 07:30 Case Time Into Pre-Op 07/02/24 05:36 Out of Pre-Op 07/02/24 07:21 Anesthesia Start 07/02/24 07:27 Into Room 07/02/24 07:27 Procedure Start 07/02/24 07:56 Procedure End 07/02/24 12:26 Anesthesia End 07/02/24 12:31 Out of Room 07/02/24 12:31 Into Recovery 07/02/24 12:33 Out of Recovery 07/02/24 13:33 Into Phase II Recovery 07/02/24 13:34 Out of Phase II 07/02/24 16:48 Procedure Start Time: 07:56 Procedure Stop Time: 12:26 Select all DRAINS/GRAFTS/IMPLANTS that apply: None Estimated Blood Loss: 25 Specimen collected: Yes Description of specimen(s) removed: Right cord lipoma Description of surgery: After appropriate identification the preoperative holding area the patient was brought to the operating room where he was positioned supine on the operating table. Preoperative antibiotics were completed and the patient was administered a general anesthetic. Patient's abdomen was then prepped and draped in usual sterile fashion. Formal timeout followed to confirm patient and procedure. Procedure was begun with Veress insufflation at Mckoy's point. Once pneumoperitoneum reached a set point pressure of 12 mmHg a right paramedian incision was made and a 8 mm robotic trocar was placed with a careful Optiview technique. Follow-up laparoscopic investigation revealed no inadvertent injury to the viscera below. However our Veress needle in the left upper quad was not immediately visible and there were numerous adhesions between the omentum as well as multiple loops of small bowel and the anterior abdominal wall mesh. Still with the right upper quadrant relatively devoid of any adhesions I was able to place an epigastric port site under laparoscopic visualization just inferior and lateral to the falciform ligament. I then began to take down some of the adhesions between the omentum and the anterior abdominal wall bluntly where possible. Several areas required sharp lysis of adhesions which was done with laparoscopic pamela. Yet with only 2 ports placed there were significant limitations to this process so I opted to place a third port in the right lower quadrant to fully facilitate this process. This was placed under laparoscopic visualization and this was a standard 5 mm laparoscopic port. I also requested both a laparoscopic LigaSure device and laparoscopic suction summer law clerk device to accomplish this task. Great care was taken to free up both the left upper quadrant where the Veress needle remained in position and along the midline. In the left upper quadrant numerous omental adhesions were taken down until I could visualize the Veress needle in its entirety. I found that at 1 point it had penetrated the transverse mesocolon but appeared to have spared the colon itself. Thus the Veress needle was withdrawn and a third and final robotic port was placed through the Veress site. Along the mesh numerous loops of small bowel were adherent to the mesh but most of these loops were able to be bluntly swept off the surface of the mesh. This process of adhesiolysis required approximately 30 minutes of operative time. Once lysis of adhesions was complete the patient was placed in steep Trendelenburg and the robot was docked in standard fashion. In this positioning I could visualize a bit of Prolene suture on the left and some abnormal contouring of the peritoneum on the right overlying the area of the spermatic cord. Robotically, a peritoneal flap was created on the right extending from the medial umbilical ligament to the level of the ASIS (external) and was bluntly dissected to expose the medial parietal compartment and lateral visceral compartments. Medially I could visualize the pubic tubercle and developed the space of Retzius which I then worked laterally from and encountered a small direct inguinal hernia defect containing fat. Traction was placed posteriorly while sweeping anteriorly to deliver these hernia contents from the defect. I then moved more laterally to the area of the spermatic cord where I immediately identified the vas deferens grossly. The cord structures were dissected but I did not identify evidence of a indirect hernia sac. I did however identify some retroperitoneal fat herniated along the posterior aspect of the cord structures as well as a discrete cord lipoma laterally. Both of these were pulled from the inguinal canal with gentle traction and a sweeping motion until the transv ersalis sling contained only the spermatic cord structures. The cord lipoma was back to some areolar attachments proximally and then completely amputated. It was set aside for later removal from the peritoneal cavity. Now I was able to clearly visualize the inverted V with the splaying of the vas deferens medially and the spermatic vessels laterally. The peritoneal flap was inspected to ensure that cord was appropriately parietalized and there was no pulling of the cord structures or the viscera deeply over the psoas using the pull test. Several additional attachments of the peritoneum to the retroperitoneum and the cremasteric fibers were taken down medially after again confirming the location of the vas deferens. Then attention was turned to the patient's left side. Again, a peritoneal flap was created on this side, however, significant scarring over the area of the spermatic cord made release of the peritoneum on this side much more tedious to try to avoid any large rents in the peritoneal lining. Gradually dissection was carried down in similar fashion to Srinivas's ligament medially and laterally over the psoas at the same depth. With this dissection I noted a large amount of fat appearing to herniate through the direct space but it was unclear to me where these herniating contents stopped and where the likely location of the iliac vein started. Therefore, I approach this defect with great care from its medial aspect and gently placed traction posteriorly on these contents until they were slowly mobilized from the direct defect. As I did so I noted the presence of a small Prolene suture medially from patient's prior anterior repair. Ultimately I was able to dislodge a large plug of herniated fat. Laterally short bursts of cautery were used to disrupt the scar tissue over the spermatic cord as I sought to minimize any trauma to the cord structures themselves. Once I was through the scar tissue the peritoneum was able to be retracted posteriorly off the cord structures. No indirect inguinal hernia sac was visible as the cord structures were dissected. Lateral to the spermatic cord I did identify a small cord lipoma which was reduced and dissected off the cord with a combination of blunt dissection and selective energy usage. Again, I performed the pull test to ensure that there is no tenting of structures that may compromise the future mesh lie. Once satisfied, a Bard 3D max, size extra large, mid weight mesh was placed into the abdomen for the right side and a Bard 3D max size large mid weight mesh was placed in the abdomen for the left side along with suture. Each mesh was positioned within the proper preperitoneal pocket so that there was good medial and inferior overlap. Each mesh was then tacked to Srinivas's ligamen t medially and laterally in a partial-thickness bite of the abdominal wall using a 3-0 Vicryl suture (above an imaginary line between the ASIS promontories). An additional tacking suture sewed the meshes together at their overlap medially. The peritoneal flap on the right was then closed with a running 3-0 V-Loc suture taking care to conceal the barbs of the suture beneath the peritoneum. There was a single peritoneal rent which was closed with an interrupted Vicryl suture. I then transitioned to the left side where the peritoneal flap was closed with a new 3-0 V-Loc suture in a running fashion from medial to lateral given some tearing of the peritoneum laterally. A second 3-0 V-Loc suture was required to complete this closure and once again great care was required with this closure a s the initial rent of the peritoneum dove deeply behind patient's sigmoid colon so the peritoneum was placed on traction with 1 hand while the second hand was used to run the rent closed before the suture was locked by running it back upon itself. No peritoneal defects persisted after this flap closure. Sutures were systematically removed from the peritoneum as well as two previously placed Ray- Juan Manuel gauzes. Lastly, the patient's right cord lipoma was delivered from the peritoneum and a laparoscopic grasper. With patient still positioned in slight Trendelenburg and I performed a local block of the ilioinguinal nerves bilaterally using 6 mL local anesthetic under laparoscopic visualization. After confirming correct case counts and this inspection complete, the pneumoperitoneum was evacuated before removing the trocars. The port sites were closed at the skin with running 4-0 Monocryl in a subcuticular fashion. Steri- Strips and OpSite's were used as dressings. Patient's testicles were confirmed within the scrotum. Patient was then awoken from anesthetic and transferred to PACU for ongoing recovery. Surgical Findings: ? Small direct right inguinal hernia with associated large cord lipoma ? Moderate size direct left inguinal hernia containing fat. Scarring of the peritoneum over the area of the cord structures with visible Prolene suture ? Numerous adhesions tween the omentum and small bowel to the left upper quadrant and midline mesh from patient's prior umbilical hernioplasty which remained flat and well opposed to the anterior abdominal wall Complications Complications: No Admit VTE Documentation VTE Mechan Device Prophylaxis: SCD's
[2024-07-02] MEDS: Bupiv/Epi 0.25% 30 ML Vial (12:20)
--- NOTE | 2024-07-02 12:23 | DCINST_ITS ---
Discharge Instructions Diet Discharge Diet: No restrictions Activity Discharge Activity: May Not Drive (While taking narcotic pain medication) and May Shower May shower in (days): 2 Ice area for (Minutes): 20 Lifting Restrictions: No lifting greater than 10 pounds x 5 weeks postop Dressing / Incision Call your doctor if your incision/area has: Sudden Increased Bleeding, Increased Pain/ Swelling, Increased Redness, Foul Smelling Discharge and Swelling at the incision site Call your doctor if you observe: Fever of 101 or Higher Change Dressing in: 2 days (Please leave Steri-Strips intact until they fall off spontaneously or are taken off at your follow-up visit) Remove Dressing in: 2 days Cleanse incision/area with: Soap & Water Follow Up Care Please Follow Up With: Khoa Gonzalez MD When: 7-10 days postop Test Results: Test results from this visit will be discussed in further detail at your follow- up appointment, if applicable. Discharge Plan Admission Primary Reason for Your Visit: Repair of inguinal hernias x 2 Attending Provider: Khoa Gonzalez Primary Care Provider: Flaca Estrella Instructions Print Language: Emirati Discharge Orders/Prescriptions Prescriptions: New oxycodone 5 mg tablet 5 mg PO Q6H PRN (Reason: pain) 3 Days Qty: 14 0RF Continued aspirin [Adult Low Dose Aspirin] 81 mg tablet,delayed release (DR/EC) 81 mg PO DAILY atorvastatin [Lipitor] 40 mg tablet 40 mg PO QHS metoprolol tartrate [Lopressor] 50 mg tablet 25 mg PO BID amlodipine [Norvasc] 2.5 mg tablet 2.5 mg PO QHS Referrals / Follow Up: Flaca Estrella MD [Primary Care Provider] - Disposition Disposition (needs filled in before D/C Order can be placed): Home, Self Care
--- NOTE | 2024-07-02 12:38 | PCM.POST.ANE ---
Anesthesia: Postop Eval I Current Vital Signs Temperature: 98 F Pulse Rate: 72 Blood Pressure: 137/73 Respiratory Rate: 16 Pulse Ox: 100 Oxygen Delivery Method: Simple Mask Oxygen Flow Rate (L/min): 6 Assessment Airway patent: Yes Spontaneous unlabored respirations: Yes Mental status: Asleep nausea: No Vomiting: No Anesthesia Complication: No Fluid Hydration Crystalloid volume administer (ml): 1,000 Total IV fluid infused: 1,000 Progress Note Anesthesia document: Postop Eval 1 completed: Yes
--- NOTE | 2024-07-02 13:16 | POSTOPAN2_ITS ---
Anesthesia Postop Eval I Sum Postop Eval Completion status Anesthesia document: Postop Eval 1 completed: Yes Anesthesia Postop Eval I Summary Anesthesia Postop Eval I Summary: Anesthesia Postop Eval I: Assessment Summary Airway patent Yes 07/02/24 12:38 [email or web address] Spontaneous unlabored Yes 07/02/24 12:38 REGULATORY [email or web address] respirations Mental status Asleep 07/02/24 12:38 [email or web address] nausea No 07/02/24 12:38 REGULATORY [email or web address] Vomiting No 07/02/24 12:38 REGULATORY [email or web address].[email or web address] Anesthesia Postop Eval I: Fluid Summary Crystalloid volume administer 1,000 07/02/24 12:38 REGULATORY [email or web address] (ml) Colloids volume administered ( ml) Blood Product volume administered (ml) Total IV fluid infused 1,000 07/02/24 12:38 REGULATORY [email or web address].[email or web address] Anesthesia Postop Eval I: Summary Notes Anesthesia Complication No 07/02/24 12:38 REGULATORY [email or web address].[email or web address] Anesthesia Complication Comment: Post-operative progress note Anesthesia: Postop Eval II Evaluation Mental status: Awake and Calm Pain Level: 0 nausea: No Vomiting: No Complications Anesthesia Complication: No
--- NOTE | 2024-07-02 13:16 | PCM.POSTANE2 ---
Anesthesia Postop Eval I Sum Postop Eval Completion status Anesthesia document: Postop Eval 1 completed: Yes Anesthesia Postop Eval I Summary Anesthesia Postop Eval I Summary: Anesthesia Postop Eval I: Assessment Summary Airway patent Yes 07/02/24 12:38 [email or web address] [email or web address] Spontaneous unlabored Yes 07/02/24 12:38 CHIEF [email or web address] respirations Mental status Asleep 07/02/24 12:38 [email or web address] [email or web address] nausea No 07/02/24 12:38 [email or web address] [email or web address] Vomiting No 07/02/24 12:38 CHIEF [email or web address].[email or web address] Anesthesia Postop Eval I: Fluid Summary Crystalloid volume administer 1,000 07/02/24 12:38 [email or web address] [email or web address] (ml) Colloids volume administered ( ml) Blood Product volume administered (ml) Total IV fluid infused 1,000 07/02/24 12:38 CHIEF [email or web address] Anesthesia Postop Eval I: Summary Notes Anesthesia Complication No 07/02/24 12:38 CHIEF [email or web address] Anesthesia Complication Comment: Post-operative progress note Anesthesia: Postop Eval II Evaluation Mental status: Awake and Calm Pain Level: 0 nausea: No Vomiting: No Complications Anesthesia Complication: No
== END 2024-07-02 16:50 | disposition home or self-care (01) ==
LOC: SDC 05:33 → AC 05:47
PROVIDERS: Anesthesiology; PCP Family Medicine; Referring Provider Surgery; Visit Provider Surgery
PROC: (CPT 49651; principal; 2024-07-02 07:10)
DX: K40.21 Bilateral inguinal hernia, without obstruction or gangrene, recurrent (principal); Z87.891 Personal history of nicotine dependence; I10 Essential (primary) hypertension; I25.10 Atherosclerotic heart disease of native coronary artery without angina pectoris; E78.00 Pure hypercholesterolemia, unspecified; Z79.899 Other long term (current) drug therapy; Z98.890 Other specified postprocedural states; K66.0 Peritoneal adhesions (postprocedural) (postinfection)
CPT/HCPCS: 49651; S2900; 00840; 36415; 80048; 85027; 88302; J2405

== ENCOUNTER → 2024-07-27 | Outpatient (CLI) | payer MEDICARE, SELFPAY ==
[2024-07-27 18:59] LABS: PSA,Total - Annual Screen 6.18 ng/mL (0.02-4.00)
== END | disposition home or self-care (01) ==
LOC: MFPLAB 15:23
DX: Z12.5 Encounter for screening for malignant neoplasm of prostate (principal)
CPT/HCPCS: 36415; 84153; G0103

== ENCOUNTER → 2024-08-18 | Outpatient (CLI) | payer MEDICARE, SELFPAY ==
[2024-08-19 13:08] LABS: PSA, Free 1.08 ng/mL; PSA, Free % 18.6 % (.)
== END | disposition home or self-care (01) ==
LOC: LAB 08:38
PROVIDERS: Referring Provider Nurse Practitioner; Visit Provider Nurse Practitioner
DX: R97.20 Elevated prostate specific antigen [PSA] (principal)
CPT/HCPCS: 36415; 84153; 84154

== ENCOUNTER → 2024-09-02 | Outpatient (CLI) | payer MEDICARE, SELFPAY ==
--- NOTE | 2024-09-02 08:02 | MRI_ITS ---
EXAM: PELVIS W/WO CONTRAST 09/02/2024 CLINICAL HISTORY: ELEVATED PSA. TECHNIQUE: PELVIS W/WO CONTRAST Multiplanar and multisequence images were obtained intravenous gadolinium contrast. CONTRAST: Clariscan VOLUME: 17 mL COMPARISON: None. FINDINGS: Prostate Size: 3.6 X 5.6 X 4.8 cm. Volume: 51 cc. Transition zone: Findings of moderate benign prostatic hyperplasia. Multiple well-defined nodules with the largest at 7 o'clock measuring 1.5 cm. No evidence of diffusion restriction or hemorrhage. PI-RADS 2. Peripheral Zone: Heterogeneously enhancing nodule in the left lateral aspect of the peripheral zone extending from 2 to 5 o'clock measuring 1.5 x 1.3 cm. Moderate associated restricted diffusion. There is no extension beyond the prostatic capsule. PI-RADS 4. Seminal vesicles: Slightly prominent. Bladder: Trabeculated thick walled. Bones: No abnormal signal or aggressive lesion seen. MRI/Pelvis W/WO Contrast IMPRESSION: Prostate Size: 3.6 X 5.6 X 4.8 cm. Volume: 51 cc. Transition zone: PI-RADS 2. Peripheral Zone: PI-RADS 4. Reading Location: [facility]
== END | disposition home or self-care (01) ==
PROVIDERS: Referring Provider Urology; Visit Provider Urology
DX: R97.20 Elevated prostate specific antigen [PSA] (principal)
CPT/HCPCS: 72197; A9575; A4216

== ENCOUNTER → 2024-10-01 | Outpatient (CLI) | payer MEDICARE, SELFPAY ==
--- NOTE | 2024-10-01 08:00 | PROSBIL_PTH ---
PATIENT: SHANIKA ANDERSON LOC: [facility] U#:[id number] AGE/SX: 73/M ROOM: RE10/01/[address]: Dr. Davie Isabel MD : 1950 BED: DIS: 10/01/2024 SPEC #: [id number] RECD: 10/02/24 15:17 STATUS: TYRONE REAmando #: [id number] RA: 10/01/24 08:[address]: Davie Isabel DEPT: SURGICAL PATHOLOGY RECD BY: Judy Khan ENTERED: 10/02/24 15:18 SP TYPE: PROST BX HAVEN DR: RAFY Camilo Tissues: A - PROSTATE RIGHT B - PROSTATE RIGHT C - PROSTATE RIGHT D - PROSTATE LEFT E - PROSTATE LEFT F - PROSTATE LEFT Procedures: PROSTATE BX Immunohistochemical Stains HEADER OPERATION: Prostate biopsy PRE-OP DIAGNOSIS: Elevated PSA TISSUE SUBMITTED: A - Right apex, B - Right mid, C - Right base, D - Left apex, E - Left mid, F - Left base MICROSCOPIC DIAGNOSIS A. Prostate, right apex, core biopsy: - Benign prostate tissue. B. Prostate, right mid, core biopsy: - Benign prostate tissue. C. Prostate, right base, core biopsy: - Benign prostate tissue with focal atrophic change. - IHC for [id number] supports the histologic impression. D. 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 E. Prostate, left mid, core biopsy: - Adenocarcinoma Karon 3+3=6, involving 10% of the tissue (one of one core). F. Prostate, left base, core biopsy: - Adenocarcinoma Karon 3+3=6, involving 30% of the tissue (one of one core). MICROSCOPIC DESCRIPTION Slides are reviewed. All matched controls reacted appropriately. These tests were developed and their performance characteristics determined by [facility]. They may not have been cleared or approved by the U.S. Food and Drug Administration. The FDA has determined that such clearance or approval is not necessary.? The above immunohistochemical/dualISH?markers are reviewed by the Pathologist. GROSS DESCRIPTION A - Received is one container designated prostate, right apex. The specimen consists of one elongated fragment of light gustafson-white soft tissue measuring 2 x 0.25 x 0.25cm. The specimen is totally submitted in one cassette. B - Received is one container designated prostate, right mid. The specimen consists of two elongated fragments of light gustafson-white soft tissue each measuring 1.5 x 0.25 x 0.25cm. The specimen is totally submitted in one cassette. C - Received is one container designated prostate, right base. The specimen consists of multiple elongated fragments of light gustafson-white soft tissue each measuring 1.5 x 0.25 x 0.25cm. The specimen is totally submitted in one cassette. D - Received is one container designated prostate, left apex. The specimen consists of one elongated fragment of light gustafson-white soft tissue measuring 2 x 0.25 x 0.25cm. The specimen is totally submitted in one cassette. E - Received is one container designated prostate, left mid. The specimen consists of one elongated fragment of light gustafson-white soft tissue measuring 2 x 0.25 x 0.25cm. The specimen is totally submitted in one cassette. F - Received is one container designated prostate, left base. The specimen consists of one elongated fragment of light gustafson-white soft tissue measuring 2 x 0.25 x 0.25cm. The specimen is totally submitted in one cassette. Ed 10/02/2024 CPT: 86952h6,61858
--- NOTE | 2024-10-01 08:00 | PROSBIL_PTH ---
PATIENT: SHANIKA ANDERSON LOC: [facility] U#:[id number] AGE/SX: 73/M ROOM: RE10/01/[address]: Dr. Davie Isabel MD : 1950 BED: DIS: 10/01/2024 SPEC #: [id number] RECD: 10/02/24 15:17 STATUS: TYRONE REAmando #: [id number] RA: 10/01/24 08:[address]: Davie Isabel DEPT: SURGICAL PATHOLOGY RECD BY: Judy Khan ENTERED: 10/02/24 15:18 SP TYPE: PROST BX HAVEN DR: RAFY Camilo Tissues: A - PROSTATE RIGHT B - PROSTATE RIGHT C - PROSTATE RIGHT D - PROSTATE LEFT E - PROSTATE LEFT F - PROSTATE LEFT Procedures: PROSTATE BX Immunohistochemical Stains HEADER OPERATION: Prostate biopsy PRE-OP DIAGNOSIS: Elevated PSA TISSUE SUBMITTED: A - Right apex, B - Right mid, C - Right base, D - Left apex, E - Left mid, F - Left base MICROSCOPIC DIAGNOSIS A. Prostate, right apex, core biopsy: - Benign prostate tissue. B. Prostate, right mid, core biopsy: - Benign prostate tissue. C. Prostate, right base, core biopsy: - Benign prostate tissue with focal atrophic change. - IHC for [id number] supports the histologic impression. D. 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 E. Prostate, left mid, core biopsy: - Adenocarcinoma Karon 3+3=6, involving 10% of the tissue (one of one core). F. Prostate, left base, core biopsy: - Adenocarcinoma Karon 3+3=6, involving 30% of the tissue (one of one core). MICROSCOPIC DESCRIPTION Slides are reviewed. All matched controls reacted appropriately. These tests were developed and their performance characteristics determined by [facility]. They may not have been cleared or approved by the U.S. Food and Drug Administration. The FDA has determined that such clearance or approval is not necessary.? The above immunohistochemical/dualISH?markers are reviewed by the Pathologist. GROSS DESCRIPTION A - Received is one container designated prostate, right apex. The specimen consists of one elongated fragment of light gustafson-white soft tissue measuring 2 x 0.25 x 0.25cm. The specimen is totally submitted in one cassette. B - Received is one container designated prostate, right mid. The specimen consists of two elongated fragments of light gustafson-white soft tissue each measuring 1.5 x 0.25 x 0.25cm. The specimen is totally submitted in one cassette. C - Received is one container designated prostate, right base. The specimen consists of multiple elongated fragments of light gustafson-white soft tissue each measuring 1.5 x 0.25 x 0.25cm. The specimen is totally submitted in one cassette. D - Received is one container designated prostate, left apex. The specimen consists of one elongated fragment of light gustafson-white soft tissue measuring 2 x 0.25 x 0.25cm. The specimen is totally submitted in one cassette. E - Received is one container designated prostate, left mid. The specimen consists of one elongated fragment of light gustafson-white soft tissue measuring 2 x 0.25 x 0.25cm. The specimen is totally submitted in one cassette. F - Received is one container designated prostate, left base. The specimen consists of one elongated fragment of light gustafson-white soft tissue measuring 2 x 0.25 x 0.25cm. The specimen is totally submitted in one cassette. Ed 10/02/2024 CPT: [id number]
== END | disposition home or self-care (01) ==
LOC: LABSPEC 15:42
PROVIDERS: Referring Provider Urology; Visit Provider Urology
DX: R97.20 Elevated prostate specific antigen [PSA] (principal)
CPT/HCPCS: 88305; 88342; G0416

== ENCOUNTER 2024-11-11 05:57 | Day surgery (SDC) | payer MEDICARE, SELFPAY ==
--- NOTE | 2024-10-28 12:28 | PAT.ANE_ITS ---
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 When Was Last Pacemaker Check QUESTION #4 FULL TEXT: You/Your Family Experience fever (hyperthermia) with Anesthesia Last Oral Intake Last Oral intake: Last Oral Intake NPO since Meds taken in AM with sips of water? 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 Has anyone observed you stop No 10/28/24 10:12 breathing during sleep? STOP Results Positive 10/28/24 10:12 QUESTION #5 FULL TEXT : Do you snore loudly (louder than talking or can be heard through closed doors)? 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 Specify any problems Hx of Preganancy in last 3 N/A 10/28/24 10:12 Months Nurse Filling Out Transfusion DSCHRIBER 10/28/24 10:12 & Questions: Date: 10/28/24 10/28/24 10:12 Time: 10:14 10/28/24 10:12 Patient unable to answer at this time (ie. 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: /Reproductive Hx- automotive window tinter Hx Now Gestational Age (in weeks): EDC: Hx Hx Para Hx Section SAB No 10/28/24 10:12 PFS Medical History (Updated 10/28/24 @ 10:17 by Nicole Adames) Cancer Family history of malignant neoplasm of prostate BPH with elevated PSA and lower urinary tract symptoms Loss of hearing Wears glasses Alcohol use Back pain Shortness of breath on exertion High cholesterol Heartburn Former smoker History of echocardiogram History of stress test Cardiology follow-up encounter Preoperative cardiovascular examination History of left heart catheterization (LHC) (~09/08/99) Paroxysmal atrial fibrillation Essential hypertension Pure hypercholesterolemia Atherosclerotic heart disease of [place] coronary artery without angina pectoris Incarcerated ventral hernia Screening for intestinal cancer Epigastric pain Hypertension Home Medications ?Medication ?Instructions ?Recorded ?Last Taken ?Type atorvastatin 40 mg tablet (Lipitor) 40 mg PO QHS 01/2207/01/24 History metoprolol tartrate 50 mg tablet 25 mg PO BID 01/22/23 07/02/24 04:00 History (Lopressor) amlodipine 2.5 mg tablet (Norvasc) 2.5 mg PO QHS #90 t abs 10/14/24 Unknown Rx Allergy/AdvReac Type Severity Reaction Status Date / Time ramipril (From Altace) AdvReac Unknown GI Issues Verified 10/28/24 10:11 Iodinated Contrast Media AdvReac Hives Verified 10/28/24 10:11 (contrast dye - iodinated) Family History Father Cancer Lung Mother Myocardial infarction, Onset Age: 93 Surgical History (Updated 10/28/24 @ 10:17 by Nicole Adames) History of cardiac catheterization H/O prostate biopsy S/P inguinal hernia repair Hx of CABG Hx of umbilical hernia repair Hx of rhinoplasty History of shoulder surgery History of coronary artery bypass surgery (~06/15/16) History of angioplasty History of coronary artery stent placement History of bilateral inguinal hernia repair Social History Smoking Status: Former smoker how long ago did patient quit smoking: quit in 1979 alcohol intake: current alcohol intake frequency: holidays/special occasions only substance use type: does not use caffeine: Yes Type: coffee Number of servings: 2 additional social history: denies vaping, denies marijuana use denies edibles, uses aspirin daily, ibuprofen as needed no family history blood clotting disorder Audit: Pertinent Findings Pertinent Findings EKG Perinent findings: EKG 11/25/2023. Normal sinus rhythm Stress test pertinent findings: Stress test 08/24/2021. Peak exercise ECG with no obvious ECG change. Technically adequate exercise tolerance test. There was a rare PVC during exercise and recovery Echo (EF%) pertinent findings: Echo 08/24/2021. EF 60%. No evidence for diastolic dysfunction. No regional wall motion abnormalities noted. Consult pertinent findings: Cardiology note 03/31/2024. History of underlying CAD status post CABG. From a cardiac standpoint patient is doing well. He does not have any chest discomfort/evidence/tightness his exercise tolerance is stable for his age. The plan is to continue the current medical therapy without any changes. Recommendation Anesthesia Recommendation Anesthesia recommendation: OPTIMIZED for anesthesia
[2024-11-11] VITALS (9 sets, daily range): BP systolic 110–134; BP diastolic 65–95; PULSE 57–67; RESP 16–18; TEMP 36.4–36.5; O2SAT 90–98; BMI 26.5
--- OUTSIDE RECORDS SUMMARY | 2024-11-11 06:19 | XMS RPT_ITS | CCD ---
Author Organization [facility] Care Team Providers Care Honing Job Setter Name Role Phone Dr. Flaca Estrella Primary Care Provider Aura Monteiro Attending Provider Unavailable Dr. Flaca Estrella Referring Provider Dr. Jese Silva Attending Provider Dr. Flaca Estrella Primary Care Provider [phone] Flaca Estrella Referring Provider [phone] CYNDI Aj Attending Provider Dr. Flaca Estrella Primary Care Provider [phone] Flaca Estrella Referring Provider [phone] CYNDI Aj Attending Provider Dr. Flaca Estrella Primary Care Provider [phone] Flaca Estrella Referring Provider [phone] CYNDI Aj Attending Provider FLACA ESTRELLA Consulting Unavailable JUDD HARPER DO Attending Unavailable JUDD HARPER DO Primary Care Unavailable JUDD HARPER DO Admitting Unavailable PROVIDER, UNKNOWN Consulting Unavailable Dr. Flaca Estrella MD Primary Care Provider [phone] Dr. Flaca Estrella MD Referring Provider [phone] Palmer Machuca MD Attending Provider Dr. Khoa Gonzalez MD Attending Provider Dr. Raymundo Canada MD Attending Provider Dr. Khoa Gonzalez MD Referring Provider Carlos NEW, Dr. Couch Other Provider [phone] Sameer NEW, Dr. Flaca Muñoz Primary Care Provider Carlos NEW, Dr. Couch Attending Provider Sameer NEW, Dr. Flaca Muñoz Referring Provider [phone] Reno PA-C, Lashonda [facility] INDUSTRIAL MACHINE OPERATOR-C, Mustapha Primary Care Provider [phone] Mc[place]orrow INDUSTRIAL MACHINE OPERATOR-C, Mustapha Attending Provider Mc[place]orrow INDUSTRIAL MACHINE OPERATOR-C, Mustapha Referring Provider Reno PA-C, Lashonda Attending Provider Herron, Cindy Attending Provider Herron, Cindy Referring Provider Maame NEW, Dr. Davie Peralta Attending Provider Maame NEW, Dr. Davie Peralta Referring Provider [phone] Dr. Vickey Logan DO Attending Provider Davie Isabel Attending Unavailable MaameDavie Referring Unavailable McMorrow INDUSTRIAL MACHINE OPERATOR, Mustapha Primary Care Unavailable MaameDavie Attending Unavailable MaameDavie Referring Unavailable McMorrow INDUSTRIAL MACHINE OPERATOR, Mustapha Primary Care Unavailable MaameDavie Attending Unavailable Mc[place]orrow INDUSTRIAL MACHINE OPERATOR, Mustapha Primary Care Unavailable Jolliff, Flaca S Referring Unavailable Jolliff, Flaca S Primary Care Unavailable Lashonda Paiz Attending Unavailable Herron, Cindy Attending Unavailable Herron, Cindy Referring Unavailable McMorrow INDUSTRIAL MACHINE OPERATOR, Mustapha Primary Care Unavailable Jolliff, Flaca S Primary Care Unavailable Palmer Machuca Attending Unavailable Jolliff, Flaca S Referring Unavailable Khoa Gonzalez Referring Unavailable Khoa Gonzalez Attending Unavailable Jolliff, Flaca S Primary Care Unavailable Khoa Gonzalez Referring Unavailable Khoa Gonzalez Attending Unavailable Jolliff, Flaca S Primary Care Unavailable Jolliff, Flaca S Primary Care Unavailable Adiliaiff, Flaca S Attending Unavailable Khoa Gonzalez Referring Unavailable Khoa Gonzalez Consulting Unavailable Khoa Gonzalez Attending Unavailable Jolliff, Flaca S Primary Care Unavailable Muriel Ibrahim Attending Unavailable Mc[place]orrow INDUSTRIAL MACHINE OPERATOR, Mustapha Primary Care Unavailable Palmer Machuca Attending Unavailable Khoa Gonzalez Referring Unavailable Jolliff, Flaca S Primary Care Unavailable Khoa Le Attending Unavailable Muriel Ibrahim Attending Unavailable McMorrow INDUSTRIAL MACHINE OPERATOR, Mustapha Primary Care Unavailable Jolliff, Flaca S Referring Unavailable Jolliff, Flaca S Primary Care Unavailable Paris INDUSTRIAL MACHINE OPERATOR, Karin Menendez Attending Unavailabl e Jolliff, Flaca S Referring Unavailable Jolliff, Flaca S Primary Care Unavailable Palmer Machuca Attending Unavailable Khoa Gonzalez Referring Unavailable Khoa Gonzalez Consulting Unavailable Khoa Gonzalez Attending Unavailable Jolliff, Flaca S Primary Care Unavailable Khoa Gonzalez Referring Unavailable Khoa Gonzalez Consulting Unavailable Palmer Machuca Attending Unavailable Jolliff, Flaca S Primary Care Unavailable Jolliff, Flaca S Referring Unavailable Jolliff, Flaca S Primary Care Unavailable Khoa Gonzalez Attending Unavailable Khoa Gonzalez Attending Unavailable McMorrow INDUSTRIAL MACHINE OPERATOR, Mustapha Primary Care Unavailable Mc[place]orrow INDUSTRIAL MACHINE OPERATOR, Mustapha Referring Unavailable Vickey Logan Attending Unavailable Davie Isabel Referring Unavailable Mc[place]orrow INDUSTRIAL MACHINE OPERATOR, Mustapha Primary Care Unavailable Jolliff, Flaca S Referring Unavailable Khoa Gonzalez Attending Unavailable Jolliff, Flaca S Primary Care Unavailable McMorrow INDUSTRIAL MACHINE OPERATOR, Mustapha Primary Care Unavailable McMorrow INDUSTRIAL MACHINE OPERATOR, Mustapha Attending Unavailable McMorrow INDUSTRIAL MACHINE OPERATOR, Mustapha Referring Unavailable Palmer Machuca Attending Unavailable Jolliff, Flaca S Primary Care Unavailable Jolliff, Flaca S Referring Unavailable Vickey Logan Attending Unavailable Vickey Logan Referring Unavailable Mc[place]orrow INDUSTRIAL MACHINE OPERATOR, Mustapha Primary Care Unavailable Khoa Gonzalez Attending Unavailable Jolliff, Flaca S Primary Care Unavailable Jolliff, Flaca S Referring Unavailable Jolliff, Flaca S Primary Care Unavailable Jolliff, Flaca S Referring Unavailable Raymundo Canada Attending Unavailable Jolliff, Flaca S Referring Unavailable SisPalmer russo Attending Unavailable Jolliff, Flaca S Primary Care Unavailable Jolliff, Flaca S Referring Unavailable Jolliff, Flaca S Primary Care Unavailable Lashonda Paiz Attending Unavailable Allergies Allergy Classification Reported Allergen(s) Allergy Type Date of Onset Reaction(s) Facility (14 sources) Ramipril Drug Allergy 2 GI Issues [facility] (1 source) Triiodobenzoic Acids Propensity to adverse reactions 5 Hives [facility] (1 source) Ramipril Drug Allergy 5 [facility] Repository (1 source) Gadolinium-MRI Contrast Medium Drug allergy (disorder) 5 [facility] Repository (1 source) Iodinated Contrast Media Drug allergy (disorder) 5 [facility] Repository Medications Current Medications Medication Drug Class(es) Dates Sig (Normalized) Sig (Original) atorvastatin 40 mg oral tablet (20 sources) HMG-CoA Reductase Inhibitor Start: 01-22-2023 take 1 tablet by mouth at bedtime Atorvastatin (Lipitor) 40 mg tablet Active 40 mg PO AT BEDTIME January 22, 2023 2:43pm Start: 01-25-2022 End: 01-22-2023 Atorvastatin (Lipitor) 40 mg tablet Discontinued 20 mg PO DAILY January 25, 2022 3:22pm January 22, 2023 2:43pm Start: 11-11-2017 End: 01-25-2022 take 1 tablet by mouth once daily Atorvastatin (Lipitor) 40 mg tablet Discontinued 40 mg PO DAILY November 11, 2017 12:00am January 25, 2022 3:23pm metoprolol tartrate 50 mg oral tablet (20 sources) beta-Adrenergic Terrell Start: 09-19-2022 End: 01-22-2023 Metoprolol Tartrate (Lopressor) 50 mg tablet Active 25 mg PO TWICE A DAY January 22, 2023 2:42pm Start: 11-11-2017 End: 09-19-2022 take 1 tablet by mouth twice daily Metoprolol Tartrate (Lopressor) 50 mg tablet Discontinued 50 mg PO TWICE A DAY November 11, 2017 12:00am September 19, 2022 2:39pm Completed/Discontinued Medications Medication Drug Class(es) Dates Sig (Normalized) Sig (Original) amLODIPine 2.5 mg oral tablet (20 sources) Dihydropyridine Calcium Channel Terrell Start: 09-19-2022 End: 10-14-2024 take 1 tablet by mouth once daily Amlodipine (Norvasc) 2.5 mg tablet Discontinued 2.5 mg PO DAILY 90 3 December 27, 2023 10:57am July 02, 2024 5:59am aspirin 81 mg delayed release oral tablet (14 sources) Platelet Aggregation Inhibitor, Nonsteroidal Anti-inflammatory Drug Start: 07-27-2021 End: 10-20-2024 Aspirin (Adult Low Dose Aspirin) 81 mg tablet,delayed release (DR/EC) Discontinued 81 mg PO DAILY July 27, 2021 12:00am October 20, 2024 2:20pm oxyCODONE hydrochloride 5 mg oral tablet (14 sources) Opioid Agonist Start: 07-02-2024 End: 07-09-2024 take 1 tablet by mouth every six hours as needed for pain Oxycodone 5 mg tablet Discontinued 5 mg PO EVERY 6 HOURS as needed for pain 14 3 0 July 02, 2024 July 09, 2024 1:11pm Bilateral recurrent inguinal hernias Bilateral inguinal hernia, without obstruction or gangrene, recurrent Start: 11-25-2023 End: 12-10-2023 take 1 tablet by mouth every six hours as needed for pain Oxycodone 5 mg tablet Discontinued 5 mg PO EVERY 6 HOURS as needed for pain 10 3 0 November 25, 2023 December 10, 2023 9:47am Umbilical hernia Umbilical hernia without obstruction or gangrene Problems Active Problems Problem Classification Problem Date Documented Da te Episodic/Chronic Abdominal pain (14 sources) Epigastric pain; Translations: [Epigastric pain] 07-27-2021 Episodic Biliary tract disease (7 sources) Biliary calculus; Translations: [Calculus of gallbladder without cholecystitis without obstruction] 09-29-2023 Episodic Cancer of prostate (3 sources) Primary malignant neoplasm of prostate; Translations: [Malignant neoplasm of prostate] Onset: 10-20-2024 10-20-2024 Chronic Cardiac dysrhythmias (18 sources) Paroxysmal atrial fibrillation; Translations: [Paroxysmal atrial fibrillation] Chronic Comment on above: after bypass Coronary atherosclerosis and other heart disease (20 sources) History of myocardial infarction; Translations: [Old myocardial infarction] Chronic Disorders of lipid metabolism (20 sources) Pure hypercholesterolemia ; Translations: [Pure hypercholesterolemia , unspecified] Onset: 02-10-2024 Chronic Essential hypertension (19 sources) Essential hypertension; Translations: [Essential (primary) hypertension] Chronic Hyperplasia of prostate (1 source) Benign prostatic hyperplasia; Translations: [Benign prostatic hyperplasia with lower urinary tract symptoms] 10-19-2024 Chronic Malaise and fatigue (14 sources) Fatigue; Translations: [Other fatigue] Episodic Other aftercare (8 sources) History of repair of umbilical hernia; Translations: [Encounter for follow-up examination after completed treatment for conditions other than malignant neoplasm] 06-24-2024 Episodic Other screening for suspected conditions (not mental disorders or infectious disease) (16 sources) Patient encounter status; Translations: [Encounter for screening for malignant neoplasm of intestinal tract, unspecified] Onset: 07-31-2024 11-11-2017 Episodic Residual codes; unclassified (1 source) Family history of prostate cancer; Translations: [Family history of malignant neoplasm of prostate] 10-19-2024 Episodic Unclassified (1 source) Unclassified (2 sources) C61 - Malignant neoplasm of prostate Past or Other Problems Problem Classification Problem Date Documented Da te Episodic/Chronic Abdominal hernia (20 sources) Irreducible hernia of anterior abdominal wall; Translations: [Other and unspecified ventral hernia with obstruction, without gangrene] Onset: 12-18-2023 07-27-2021 Episodic Comment on above: Patient is a 72-year -old male who presents for surgical consultation related to a chronically fat incarcerated umbilical hernia as well as bilateral apparently recurrent inguinal hernias. He appears to be primarily motivated by the umbilical hernia which has slowly progressed in size over many years. He describes occasional discomfort including a recent ER visit for concern for a bowel obstruction last month. He is ready to have this area addressed and plans to take the necessary time and postoperative recovery to see through his healing process. I reviewed his CT imaging with him as well as performed a physical exam to confirm these findings. I shared with him that he would likely require umbilicoplasty plus minus omentectomy in addition to the usual steps of an umbilical hernia repair. Mr. Anderson expressed understanding and is ready to move forward when recommended. Patient with symptom atic recurrent left hand probable right inguinal hernias. He gives a history of a right inguinal hernia repair as an adult approximately 30 years ago and a even more remote repair of the left inguinal hernia as an infant. However, I shared with him that based on his exam I believe his history is actually the opposite since there is a larger scar consistent with a open inguinal hernia repair on the left. Either way, I have advised for a transabdominal approach to these hernias to try to achieve virgin anatomical planes. I would plan to do this concurrent with patient's umbilical hernia repair via robotic approach. After a discussion of the procedure and using hand drawings to illustrate the relevant anatomy/physiology Mr. Anderson agrees and wishes to schedule a date.Update 03/30/2024: Patient appears fully recovered from his umbilical hernia repair and is interested in moving forward with his bilaterally recurrent inguinal hernias. As previously noted both of these hernias were repaired anteriorly and the right inguinal hernia appears to have been repaired as an . He remains symptomatic from the left side describing burning discomfort. At our previous visit I discussed possibly referring out for repair given the recurrent nature of his hernias, but since they appeared to contain only fat and the planes that would be used from a posterior approach should be largely virgin territory I believe it is reasonable to proceed here locally. Mr. Anderson expresses some initial surprise as he was convinced he would require referral but states he is interested in moving forward as the operating room schedule allows. 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 He pledges to let us know as soon as possible when he will be able to take the requested 5 weeks away from activity to allow for his recovery. Coronary atherosclerosis and other heart disease (4 sources) Presence of aortocoronary bypass graft; Translations: [Aortocoronary bypass status] Onset: 05-16-2016 Episodic Other aftercare (1 source) Encounter for follow-up examination after completed treatment for conditions other than malignant neoplasm; Translations: [Encounter for follow-up examination after completed treatment for conditions other than malignant neoplasm] Onset: 12-10-2023 Episodic Residual codes; unclassified (14 sources) History of cardiac catheterization; Translations: [Other specified postprocedural states] Onset: 08-17-1999 07-27-2021 Episodic Comment on above: PCI/Stent to LAD Results Test Name Value Interpretation Reference Range Facility PET/CT Tumor Base -Thigh [facility] 11-03-2024 PET/CT Tumor Base -Thigh Init [facility] Imaging Services [address] [place], [place] [id number] PET/CT Tumor Base -Thigh Init MR#: [id number] Acct: [id number] Name: DUNCAN ANDERSON Rep #: [id number] : 1950 M 73 From: Cl Ramos PCP: Mustapha Shrestha NP INDUSTRIAL MACHINE OPERATOR-C Status: REG RCR Study: PET/CT Tumor Base -Thigh Init Date of Exam: Exam# [id number] Ordering Dr: Vickey Logan DO PROCEDURE: PET/CT TUMOR BASE -THIGH INIT 11/03/2024 REASON FOR EXAM: 73 y/o M with PYLARIFY TECHNIQUE: Following the intravenous administration of radionucleotide, image acquisition on a dedicated PET/CT unit was performed at one hour post injection. A preliminary CT study encompassing the Head, neck, chest, abdomen, pelvis, and proximal thighs was performed for purposes of attenuation correction and anatomic localization. The proximal thighs were also included. RADIOPHARMACEUTICAL: 9.89 mCi Pylarify (Piflufolastat F18) - Prostate Specific Membrane Agent - IV was injected into he patient. RADIATION DOSE SUMMARY: Effective Dose: Approximately 7 mSv for a standard whole-body PET scan Organ Doses: Varies by organ, with higher doses typically to the bladder, liver, and brain COMPARISON: COMPARISON FROM CT, PET OR OTHER PERTINENT EXAMS: Pelvic MRI 09/02/2024. FINDINGS: Physiologic uptake: There may be expected metabolic uptake within the brain, tongue and floor of the mouth and larynx/vocal cords, heart, [place] (many normal individuals have hilar uptake in less than 3 nodes with mildly avid hilar nodes less than 2.7 SUV), liver and spleen, system, and GI tract and symmetric muscle uptake. FDG AVID AND NON-AVID LESIONS. Reported avid SUV values (g/mL*) are maximum SUV. NECK: There are no significant neck abnormalities. CHEST: Moderately severe coronary artery calcification. Chest wall- There are no significant chest wall abnormalities. Axilla- There are no significant axillary abnormalities. Lung parenchyma- There are no significant lung parenchyma abnormalities. Mediastinum- There are no significant hilar or mediastinal adenopathy. Pleura- There are no significant pleural abnormalities. ABDOMEN: Cholelithiasis. Moderate arterial calcification is seen; no evidence of abdominal aortic aneurysm. Stomach- No significant abnormalities. Liver- No significant abnormalities. Spleen- No significant abnormalities. Pancrease- No significant abnormalities. Kidneys- No significant abnormalities. Bowel- Normal bowel activity. Spine- No significant abnormalities. PELVIS: In the left inferior prostate gland, a focus of increased uptake is seen, with SUV max of 11.4. This is concerning for the presence of malignancy. A right scrotal hydrocele is seen. Bowel- Normal physiologic bowel activity is identified. Masses- There are no pelvic masses. Bones- With the use of bone window settings, there are no osteolytic or osteoblastic lesions. There are no FDG avid lesions within the visualized portion of the axial skeleton. PET/PET/CT Tumor Base -Thigh Init IMPRESSION: FDG avid- Focus of increased uptake in the left inferior prostate gland, concerning for the presence of malignancy. No additional abnormal focus of uptake was seen. Other: Moderately severe coronary artery calcification is seen. Cholelithiasis. Right scrotal hydrocele. Please note the low-dose CT scan was performed to facilitate PET image reconstruction and anatomic localization and does not replace a diagnostic CT. Any diagnostic CT requested and performed at the time of the PET will be reported separately. Reading Location: [place] [address] CC: Mustapha Shrestha; Dr. Vickey Logan DO [employer] Installer: Signed Normal 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 When Was Last Pacemaker Check QUESTION #4 FULL TEXT: You/Your Family Experience fever (hyperthermia) with Anesthesia Last Oral Intake Last Oral intake: Last Oral Intake NPO since Meds taken in AM with sips of water? Meds patient instructed to take am of surgery PONV PONV - manager occupational: PONV - manager occupational Female No 10/28/24 10:12 HX of Motion Sickness No 10/28/24 10:12 HX of N/V After Surgery No 10/28/24 10:12 Non-Smoker No 10/28/24 10:12 Duration of Surgery greater No 10/28/24 10:12 than 60 minutes Number of Risk Factors PONV Score Height Weight Height Weight: Anesthesia: Height Weight Height 5 ft 10 in 10/20/24 14:15 Respiratory Assessment Respiratory Assessment - manager occupational: Respiratory Tract Infection Hx - manager occupational Hx Respiratory Tract Infection No 10/28/24 10:12 STOP Sleep Apnea STOP Sleep Apnea - manager occupational: STOP Sleep Apnea - manager occupational Hx Hypertension Yes: CONTROLLED ON MED 10/28/24 10:12 Hx Sleep Apnea No 10/28/24 10:12 CPAP BIPAP Do you snore loudly (louder Yes 10/28/24 10:12 than talking or can be heard Do you often feel tired/ Yes 10/28/24 10:12 fatigued/ sleepy during daytime? Has anyone observed you stop No 10/28/24 10:12 breathing during sleep? STOP Results Positive 10/28/24 10:12 QUESTION #5 FULL TEXT : Do you snore loudly (louder than talking or can be heard through closed doors)? Tobacco Use History Tobacco Use History - manager occupational: Tobacco Use History - manager occupational Tobacco Use Smoking Status Former smoker 10/28/24 10:12 Hx Tobacco Use No 10/28/24 10:12 Years Smoking Packs Smoked per Day Smoking Cessation Date was No - quit smoking greater 10/28/24 10:12 within the last 15 years than 15 years ago Hx Smoking Cessation Date Hx Smoking Cessation No 10/28/24 10:12 Counseling Hematologic Medial History Hematologic Hx - manager occupational: Hematologic Medical Hx - manager documentation Hx of Blood Transfusion No 10/28/24 10:12 Hx of Transfusion in last 3 No 10/28/24 10:12 Months Date of Last Transfusion (if within last 3 months) Ever experience any problems No 10/28/24 10:12 with transfusion(s)? Specify any problems Hx of Preganancy in last 3 N/A 10/28/24 10:12 Months Nurse Filling Out Transfusion DSCHRIBER 10/28/24 10:12 Questions: Date: 10/28/24 10/28/24 10:12 Time: 10:14 10/28/24 10:12 Patient unable to answer at this time (ie. confused, unrespo /Reproduction History /Reproductive History - manager occupational: /Reproductive Hx- manager occupational Hx Now Gestational Age (in weeks): EDC: Hx Hx Para Hx Section SAB No 10/28/24 10:12 [facility] Medical History (Updated 10/28/24 @ 10:17 by Nicole Adames) Cancer Family history of malignant neoplasm of prostate BPH with elevated PSA and lower urinary tract symptoms Loss of hearing Wears glasses Alcohol use Back pain Shortness of breath on exertion High cholesterol Heartburn Former smoker History of echocardiogram History of stress test Cardiology follow-up encounter Preoperative cardiovascular examination History of left heart catheterization (LHC) ( 09/08/99) Paroxysmal atrial fibrillation Essential hypertension Pure hypercholesterolemia Atherosclerotic heart disease of [place] coronary artery without angina pectoris Incarcerated ventral hernia Screening for intestinal cancer Epigastric pain Hypertension Home Medications ???Medication ???Instructions ???Recorded ???Last Taken ???Type atorvastatin 40 mg tablet (Lipitor) 40 mg PO QHS 01/22/23 07/01/24 H (more content not included)... Normal [facility] Radiation Oncology Visiton 0 10-20-2024 Radiation Oncology Visit [facility] [address] [place] [id number] OFFICE VISIT Date of Service: 10/20/24 1415 MR#: [id number] Acct: [id number] Name: DUNCAN ANDERSON Rep #: [id number] : 1950 From: Vickey Logan DO Age/Sex: 73/M [place] [facility] [place]: S[place] Intake Vital Signs 07/02/24 06:00 10/20/24 14:15 Height 5 ft 10 in 5 ft 10 in Weight: 193 lb 7 oz BMI 27.7 BP 153/96 H Blood Pressure Location Lt brachial Position Sitting Respiration 16 Pulse 82 Pulse Source Monitor Temp 98.6 F Temperature Source Temporal Artery Pulse Oximetry (%) 95 Oxygen Delivery Method room air Intake Visit Reasons: PROSTATE CA Is patient in pain?: No Allergies ramipril (From Altace) Adverse Reaction (Unknown, Verified 07/09/24 13:11) GI Issues Iodinated Contrast Media (contrast dye - iodinated) Adverse Reaction (Verified 10/20/24 14:20) Hives Medications ???Medication ???Instructions ???Recorded ???Confirmed ???Type atorvastatin 40 mg tablet (Lipitor) 40 mg PO QHS 01/22/23 10/19/24 History metoprolol tartrate 50 mg tablet 25 mg PO BID 01/22/23 10/19/24 His tory (Lopressor) amlodipine 2.5 mg tablet (Norvasc) 2.5 mg PO QHS #90 tabs 10/14/24 10/19/24 Rx Have you fallen in the past year?: No PFSH PFSH Medical History Family history of malignant neoplasm of prostate BPH with elevated PSA and lower urinary tract symptoms Loss of hearing Wears glasses Alcohol use Back pain Shortness of breath on exertion High cholesterol Heartburn Former smoker History of echocardiogram History of stress test Cardiology follow-up encounter Preoperative cardiovascular examination History of left heart catheterization (LHC) ( 09/08/99) Paroxysmal atrial fibrillation Essential hypertension Pure hypercholesterolemia Atherosclerotic heart disease of [place] coronary artery without angina pectoris Incarcerated ventral hernia Screening for intestinal cancer Epigastric pain Hypercholesterolemia Hypertension Home Medications ???Medication ???Instructions ???Recorded ???Last Taken ???Type atorvastatin 40 mg tablet (Lipitor) 40 mg PO QHS 01/22/23 07/01/24 History metoprolol tartrate 50 mg tablet 25 mg PO BID 01/22/23 07/02/24 04: 00 History (Lopressor) amlodipine 2.5 mg tablet (Norvasc) 2.5 mg PO QHS #90 tabs 10/14/24 Unknown Rx Allergy/AdvReac Type Severity Reaction Status Date / Time ramipril (From Altace) AdvReac Unknown GI Issues Verified 07/09/24 13:11 Iodinated Contrast Media AdvReac Hives Verified 10/20/24 14:20 (contrast dye - iodinated) Family History Father Cancer Lung Mother Myocardial infarction, Onset Age: 93 Surgical History H/O prostate biopsy S/P inguinal hernia repair Hx of CABG Hx of umbilical hernia repair Hx of rhinoplasty History of shoulder surgery History of coronary artery bypass surgery ( 06/15/16) History of angioplasty History of coronary artery stent placement History of bilateral inguinal hernia repair Social History Smoking Status: Former smoker how long ago did patient quit smoking: quit in 1979 alcohol intake: current alcohol intake frequency: holidays/special occasions only substance use type: does not use caffeine: Yes Type: coffee Number of servings: 2 additional social history: denies vaping, denies marijuana use denies edibles, uses aspirin daily, ibuprofen as needed no family history blood clotting disorder Referring Provider: Fabian Isabel MD Diagnosis: Duncan Anderson is a 73 year-old male diagnosed with high risk prostate cancer (PSA 6.16, GS 4+4, cT1c) status post MRI pelvis with and without contrast (09/02/2024), and TRUS guided prostate biopsy (10/02/2024). History of Present Illness: 09/02/2024: Patient completed MRI pelvis with and without contrast.??? This demonstrated a heterogeneously enhancing nodule in the left lateral aspect of the peripheral zone extending from the 2:00 to the 5 o'clock position measuring 1.5 x 1.3 cm, no extension beyond the capsule.??? PI-RADS category 4.??? Seminal vesicles are slightly prominent. 10/02/2024: Patient completed TRUS guided prostate biopsy.??? Pathology demonstrated Adams 4+4 adenocarcinoma involving about 80% of 1/1 core in the left prostate apex, Adams 3+3 adenocarcinoma involving about 10% of 1/1 core in the left prostate mid and about 30% of 1/1 core in the left prostate base.??? Remaining biopsies were negative. Radiation Treatment History: No prior history of radiation therapy. No pacemaker. No diagnosis of radiosensitizing comorbidity. (more content not included)... Normal [facility] Immunohistochemical Stainson 10-01-2024 Immunohistochemical Stains Patient Age/Sex Location Account Attending Physician DUNCAN ANDERSON 73/M [facility] [id number] Dr. Davie Isabel MD Specimen: [id number] Received: 10/02/24 Status: TYRONE Pruett Num: [id number] Spec Type: PROST BX Subm Dr: Dr. Davie Isabel MD HEADER OPERATION: Prostate biopsy PRE-OP DIAGNOSIS: Elevated PSA TISSUE SUBMITTED: A - Right apex, B - Right mid, C - Right base, D - Left apex, E - Left mid, F - Left base MICROSCOPIC DIAGNOSIS A. Prostate, right apex, core biopsy: - Benign prostate tissue. B. Prostate, right mid, core biopsy: - Benign prostate tissue. C. Prostate, right base, core biopsy: - Benign prostate tissue with focal atrophic change. - IHC for [id number] supports the histologic impression. D. 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 E. Prostate, left mid, core biopsy: - Adenocarcinoma Adams 3+3=6, involving 10% of the tissue (one of one core). F. Prostate, left base, core biopsy: - Adenocarcinoma Karon 3+3=6, involving 30% of the tissue (one of one core). MICROSCOPIC DESCRIPTION Slides are reviewed. All matched controls reacted appropriately. These tests were developed and their performance characteristics determined by [facility]. They may not have been cleared or approved by the U.S. Food and Drug Administration. The FDA has determined that such clearance or approval is not necessary.??? The above immunohistochemical/fercho [place]???markers are reviewed by the Pathologist. GROSS DESCRIPTION A - Received is one container designated prostate, right apex. The specimen consists of one elongated fragment of light gustafson-white soft tissue measuring 2 x 0.25 x 0.25cm. The specimen is totally submitted in one cassette. Patient Age/Sex Location Account Attending Physician DUNCAN ANDERSON/M LAB[facility] [id number] Dr. Davie Isabel MD B - Received is one container designated prostate, right mid. The specimen consists of two elongated fragments of light gustafson-white soft tissue each measuring 1.5 x 0.25 x 0.25cm. The specimen is totally submitted in one cassette. C - Received is one container designated prostate, right base. The specimen consists of multiple elongated fragments of light gustafson-white soft tissue each measuring 1.5 x 0.25 x 0.25cm. The specimen is totally submitted in one cassette. D - Received is one container designated prostate, left apex. The specimen consists of one elongated fragment of light gustafson-white soft tissue measuring 2 x 0.25 x 0.25cm. The specimen is totally submitted in one cassette. E - Received is one container designated prostate, left mid. The specimen consists of one elongated fragment of light gustafson-white soft tissue measuring 2 x 0.25 x 0.25cm. The specimen is totally submitted in one cassette. F - Received is one container designated prostate, left base. The specimen consists of one elongated fragment of light gustafson-white soft tissue measuring 2 x 0.25 x 0.25cm. The specimen is totally submitted in one cassette. Ed 10/02/2024 [facility]: [id number] Patient Age/Sex Location Account Attending Physician DUNCAN ANDERSON 73/M [facility]SPEC [id number] Dr. Davie Isabel MD Signed (signature on file) Dr. Sandee Henderson MD 10/08/24 1240 Normal [facility] Comment on above: Performed By: #### P IMNORTH #### [facility] [address] [facility] [place], [address] Magnetic resonance imaging r eportOrdered By: Mabel Burks on 09-05-2024 Study report [facility] Imaging Services [address] [place], [place] [id number] Pelvis W/WO Contrast MR#: [id number] Acct: [id number] Name: DUNCAN ANDERSON Rep #: [id number] : 1950 Anthony Story From: Carolyn Burks MD PCP: Mustapha Shrestha NP INDUSTRIAL MACHINE OPERATOR-C Status: REG CLI Study:Pelvis W/WO Contrast Date of Exam: 09/02/24 Exam# [id number] Ordering Dr: Chilo Isabel MD EXAM: PELVIS W/WO CONTRAST 09/02/2024 CLINICAL HISTORY: ELEVATED PSA. TECHNIQUE: PELVIS W/WO CONTRAST Multiplanar and multisequence images were obtained intravenous gadolinium contrast. CONTRAST: Clariscan VOLUME: 17 mL COMPARISON: None. FINDINGS: Prostate Size: 3.6 X 5.6 X 4.8 cm. Volume: 51 cc. Transition zone: Findings of moderate benign prostatic hyperplasia. Multiple well-defined nodules with the largest at 7 o'clock measuring 1.5 cm. No evidence of diffusion restriction or hemorrhage. PI-RADS 2. Peripheral Zone: Heterogeneously enhancing nodule in the left lateral aspect of the peripheral zone extending from 2 to 5 o'clock measuring 1.5 x 1.3 cm. Moderate associated restricted diffusion. There is no extension beyond the prostatic capsule. PI-RADS 4. Seminal vesicles: Slightly prominent. Bladder: Trabeculated thick walled. Bones: No abnormal signal or aggressive lesion seen. MRI/Pelvis W/WO Contrast IMPRESSION: Prostate Size: 3.6 X 5.6 X 4.8 cm. Volume: 51 cc. Transition zone: PI-RADS 2. Peripheral Zone: PI-RADS 4. Reading Location: [id number] CC: Mustapha Shrestha; Dr. Davie Isabel MD ~ Two Way Radio Installer: Signed [facility] Pelvis W/WO Contraston 09-02 Pelvis W/WO Contrast [facility] Imaging Services [address] [place] [address] Pelvis W/WO Contrast MR#: [id number] Acct: [id number] Name: DUNCAN ANDERSON Rep #: [id number] : 1950 M 73 From: Mabel foley MD PCP: Mustapha Shrestha NP Status: REG CLI Study: Pelvis W/WO Contrast Date of Exam: 09/02/24 Exam# [id number] Ordering Dr: Davie Isabel MD EXAM: PELVIS W/WO CONTRAST 09/02/2024 CLINICAL HISTORY: ELEVATED PSA. TECHNIQUE: PELVIS W/WO CONTRAST Multiplanar and multisequence images were obtained intravenous gadolinium contrast. CONTRAST: Clariscan VOLUME: 17 mL COMPARISON: None. FINDINGS: Prostate Size: 3.6 X 5.6 X 4.8 cm. Volume: 51 cc. Transition zone: Findings of moderate benign prostatic hyperplasia. Multiple well-defined nodules with the largest at 7 o'clock measuring 1.5 cm. No evidence of diffusion restriction or hemorrhage. PI-RADS 2. Peripheral Zone: Heterogeneously enhancing nodule in the left lateral aspect of the peripheral zone extending from 2 to 5 o'clock measuring 1.5 x 1.3 cm. Moderate associated restricted diffusion. There is no extension beyond the prostatic capsule. PI-RADS 4. Seminal vesicles: Slightly prominent. Bladder: Trabeculated thick walled. Bones: No abnormal signal or aggressive lesion seen. MRI/Pelvis W/WO Contrast IMPRESSION: Prostate Size: 3.6 X 5.6 X 4.8 cm. Volume: 51 cc. Transition zone: PI-RADS 2. Peripheral Zone: PI-RADS 4. Reading Location: [facility] [address] CC: Mustapha [place] INDUSTRIAL MACHINE OPERATOR-C [facility]; Dr. Davie Isabel MD Two Way Radio Installer: Signed Normal [facility] PSA Total+%Freeon 08-19-2024 PSA, FREE 1.08 ng/mL Normal N/A [facility] Comment on above: Result Comment: Micky HERNANDEZ methodology. Performed By: #### L 3110.0500 ####[facility] [address] [place], [address] PSA, FREE % 18.6 Normal . [facility] Comment on above: Result Comment: The table below lists the probability of prostate cancer for men with non-suspicious MAXIMILIANO results and total PSA between 4 and 10 ng/mL, by patient age (Feliciano et al, MELANI 1998, 279:1542). % Free PSA 50-64 yr 65-75 yr 0.00-10.00% 56% 55% 10.01-15.00% 24% 35% 15.01-20.00% 17% 23% 20.01-25.00% 10% 20% >25.00% 5% 9% Please note: Feliciano et al did not make specific recommendations regarding the use of percent free PSA for any other population of men. Performed at: - [facility] [address], [place] [id number] Lumber Tying Machine Operator: Valeriano Bowden PhD, Phone: [phone] Performed By: #### L 3110.0500 ####[facility] [address] [place], [address] PSA, TOTAL ULTR 5.810 ng/mL Abnormal 0.000-4.000 [facility] Comment on above: Result Comment: Micky menendez ECLIA methodology. According to the [place] [employer], Serum PSA should decrease and remain at undetectable levels after radical prostatectomy. The AUA defines biochemical recurrence as an initial PSA value 0.200 ng/mL or greater followed by a subsequent confirmatory PSA value 0.200 ng/mL or greater. Values obtained with different assay methods or kits cannot be used interchangeably. Results cannot be interpreted as absolute evidence of the presence or absence of malignant disease. Performed By: #### L 3110.0500 ####[facility] [address] [facility]. [place], [place], [id number] Serum or plasma free prostat e specific antigen (PSA)/total PSA mass ratioOrdered By: Cindy Forrest on 08-18-2024 Free PSA/Total PSA [Mass fraction] 18.6 % . [facility] Comment on above: The table below list s the probability of prostate cancer formen with non-suspicious MAXIMILIANO results and total PSA between4 and 10 ng/mL, by patient age (Feliciano et al, MELANI 1998,279:1542). % Free PSA 50-64 yr 65-75 yr 0.00-10.00% 56% 55% 10.01-15.00% 24% 35% 15.01-20.00% 17% 23% 20.01-25.00% 10% 20% >25.00% 5% 9%Please note: Feliciano et al did not make specific recommendations regarding the use of percent free PSA for any other population of men.Performed at: - [facility], [place] [id number] Director: Valeriano Bowden PhD, Phone: [phone] Surgery Visit Reporton 08-12 Surgery Visit Report [facility] [address] [place] [address] OFFICE VISIT Date of Service: 08/12/24 MR#: [id number] Acct: [id number] Name: DUNCAN ANDERSON Rep #: [id number] : 1950 Provider: Dr. Khoa rivas MD Age/Sex: 73/M Location: [facility] Status: Signed Intake Vital Signs 07/02/24 06:00 Height 5 ft 10 in Intake Visit Reasons: HERNIA 4-17 Chief Complaint: hernia 4-17 Is patient in pain?: No Allergies ramipril (From Altace) Adverse Reaction (Unknown, Verified 07/09/24 13:11) GI Issues Have you fallen in the past year?: No Subjective Details: Patient follows up for his second postoperative visit after bilateral inguinal hernia pair 07/02/2024. He denies any postoperative pain, bulging, or wound concerns at this point. He shares that he had experience of phantom hernia feelings but they always spontaneously disappeared and have become less frequent. He has been very careful to stick to activity limitations???lifting no more than a gallon of milk at a time since surgery. He states he is contemplating what his activity limitation should be going forward once he is released. Lastly, as an aside Mr. Anderson questions whether a recently elevated PSA obtained through his PCP may be at all related to his surgery. Patient seen for initial postoperative visit 07/09/2024 [address]. Bojorquez. Below is recapitulated from that visit for ease of review: Patient is a 73 y/o M I am following s/p robotic-assisted bilateral inguinal hernia repair with mesh placement by Dr. Gonzalez on 07/02/24. Patient tolerated the procedure well. Patient denies any nausea, vomiting, fever. He notes minimal amount of incisional discomfort. He notes appetite and bowel habits have returned to normal. Pathology demonstrated benign adipose tissue consistent with lipoma. Objective Details: Constitutional: Cooperative, appreciative Abdomen: Well-healed port site incisions, nondistended, soft, nontender to palpation x 4 quadrants. : No palpable bulges or tenderness Coding Level of Care Code Global Post Op Diagnoses S/P inguinal hernia repair Z98.890; Z87.19 [facility] Medical History Loss of hearing Wears glasses Alcohol use Back pain Shortness of breath on exertion High cholesterol Heartburn Former smoker Leg cramps History of echocardiogram History of stress test Cardiology follow-up encounter Preoperative cardiovascular examination History of left heart catheterization (LHC) ( 09/08/99) Paroxysmal atrial fibrillation Essential hypertension Pure hypercholesterolemia Atherosclerotic heart disease of [place] coronary artery without angina pectoris Incarcerated ventral hernia Screening for intestinal cancer Epigastric pain Hypercholesterolemia Hypertension Surgical History (Updated 08/12/24 @ 14:[address] Khoa Gonzalez MD) S/P inguinal hernia repair Hx of CABG Hx of umbilical hernia repair Hx of rhinoplasty History of shoulder surgery History of coronary artery bypass surgery ( 06/15/16) History of angioplasty History of coronary artery stent placement History of bilateral inguinal hernia repair Family History Father Cancer Lung Mother Myocardial infarction, Onset Age: 93 Social History Smoking Status: Former smoker how long ago did patient quit smoking: quit in 1979 alcohol intake: current alcohol intake frequency: holidays/special occasions only substance use type: does not use caffeine: Yes Type: coffee Number of servings: 2 additional social history: denies vaping, denies marijuana use denies edibles, uses aspirin daily, ibuprofen as needed no family history blood clotting disorder Assessment and Plan (No Qualifiers) Assessment and Plan (1) S/P inguinal hernia repair: Status: Acute Comment: Bilateral inguinal repair 07/02/2024. Patient has recovered well. No signs of recurrence. Recommend return to activities in a gradual fashion. Examples of gradual return are given but patient has history of umbilical hernia repair and return to activity successfully. He states he plans to near this recovery after that prior experience. Regarding his question about possible PSA elevation. I suggested there could be a possible connection if the surgery had led to any level of prostatitis but I thought this was unlikely. An independent review of the literature there does not appear to be any documented cases where the 2 are directly linked. Therefore, I would suspect they are random, unrelated to events. Plan: ??? Patient released to full activity but encouraged to do so in a gradual fashion and stressed the importance of using good lifting te (more content not included)... Normal [facility] PSA,Total - Annual Screenon 07-27-2024 PSA,TOT SCREEN 6.18 ng/mL High 0.02-4.00 [facility] Comment on above: Order Comment: Order Date: 07/27/24 Order Info: [id number] - PSA Result Comment: This test was performed using the [employer] tPSA method. Measured values of a patient??sample can vary depending on the testing procedure used. PSA values determined on patient samples by different testing procedures cannot be used interchangeably. If there is a change in PSA assays while monitoring therapy, sequential testing should be performed to confirm baseline values. Performed By: #### L 501.9910 #### [facility] [address] [place], [address] Surgery Visit Reporton 07-09 Surgery Visit Report [facility] [address] [place] [address] OFFICE VISIT Date of Service: 07/09/24 MR#: [id number] Acct: [id number] Name: DUNCAN ANDERSON Chilo Rep #: [id number] : 1950 Provider: FELISHA garnica Age/Sex: 73/M Location: [facility] Status: Signed Intake Vital Signs 07/02/24 06:00 Height 5 ft 10 in Intake Visit Reasons: HERNIA 4-17 Chief Complaint: hernia 4-17 Is patient in pain?: No Allergies ramipril (From Altace) Adverse Reaction (Unknown, Verified 07/09/24 13:11) GI Issues Medications ???Medication ???Instructions ???Recorded ???Confirmed ???Type aspirin 81 mg tablet,delayed 81 mg PO DAILY 07/27/21 07/02/24 H istory release (Adult Low Dose Aspirin) atorvastatin 40 mg tablet (Lipitor) 40 mg PO QHS 01/22/23 07/02/24 History metoprolol tartrate 50 mg tablet 25 mg PO BID 01/22/23 07/02/24 His tory (Lopressor) amlodipine 2.5 mg tablet (Norvasc) 2.5 mg PO QHS 07/02/24 07/02/24 History Have you fallen in the past year?: No Subjective Details: Patient is a 73 y/o M I am following s/p robotic-assisted bilateral inguinal hernia repair with mesh placement by Dr. Gonzalez on 07/02/24. Patient tolerated the procedure well. Patient denies any nausea, vomiting, fever. He notes minimal amount of incisional discomfort. He notes appetite and bowel habits have returned to normal. Pathology demonstrated benign adipose tissue consistent with lipoma. Objective Details: Abdomen- soft, incisions c/d/i. No erythema or infection noted. Coding Level of Care Code Global Post Op Diagnoses S/P inguinal hernia repair Z98.890; Z87.19 [facility] Medical History Loss of hearing Wears glasses Alcohol use Back pain Shortness of breath on exertion High cholesterol Heartburn Former smoker Leg cramps History of echocardiogram History of stress test Cardiology follow-up encounter Preoperative cardiovascular examination History of left heart catheterization (LHC) ( 09/08/99) Paroxysmal atrial fibrillation Essential hypertension Pure hypercholesterolemia Atherosclerotic heart disease of [place] coronary artery without angina pectoris Incarcerated ventral hernia Screening for intestinal cancer Epigastric pain Hypercholesterolemia Hypertension Surgical History (Updated 07/09/24 @ 13:58 by Lashonda HANNA, PA-C) S/P inguinal hernia repair Hx of CABG Hx of umbilical hernia repair Hx of rhinoplasty History of shoulder surgery History of coronary artery bypass surgery ( 06/15/16) History of angioplasty History of coronary artery stent placement History of bilateral inguinal hernia repair Family History Father Cancer Lung Mother Myocardial infarction, Onset Age: 93 Social History Smoking Status: Former smoker how long ago did patient quit smoking: quit in 1979 alcohol intake: current alcohol intake frequency: holidays/special occasions only substance use type: does not use caffeine: Yes Type: coffee Number of servings: 2 additional social history: denies vaping, denies marijuana use denies edibles, uses aspirin daily, ibuprofen as needed no family history blood clotting disorder Assessment and Plan (No Qualifiers) Assessment and Plan (1) S/P inguinal hernia repair: Status: Acute Comment: Bilateral inguinal repair Plan: Recommend no lifting greater than 10 pounds for 5 weeks from surgery Discussed signs of infection Follow-up with Dr. Gonzalez 5 weeks from surgery 07/09/24 1359 Date Lashonda Barrett Signature: Date (if applicable) CC: Dr. Flaca Estrella MD [facility] Discharge Instructionon 06-16 Discharge Instruction [facility] Medical Records Department [address] [place] [address] Instructions for Home/Discharge Instructions 07/02/24 1223 MR#: [id number] Acct: [id number] Name: DUNCAN ANDERSON Rep #: [id number] : 1950 73 From: Khoa Gonzalez MD PCP: Dr. Flaca Estrella MD Status:DEP [facility] Discharge Instructions Diet Discharge Diet: No restrictions Activity Discharge Activity: May Not Drive (While taking narcotic pain medication) and May Shower May shower in (days): 2 Ice area for (Minutes): 20 Lifting Restrictions: No lifting greater than 10 pounds x 5 weeks postop Dressing / Incision Call your doctor if your incision/area has: Sudden Increased Bleeding, Increased Pain/ Swelling, Increased Redness, Foul Smelling Discharge and Swelling at the incision site Call your doctor if you observe: Fever of 101 or Higher Change Dressing in: 2 days (Please leave Steri-Strips intact until they fall off spontaneously or are taken off at your follow-up visit) Remove Dressing in: 2 days Cleanse incision/area with: Soap Water Follow Up Care Please Follow Up With: Khoa Gonzalez MD When: 7-10 days postop Test Results: Test results from this visit will be discussed in further detail at your follow-up appointment, if applicable. Discharge Plan Admission Primary Reason for Your Visit: Repair of inguinal hernias x 2 Attending Provider: Khoa Gonzalez Primary Care Provider: Flaca Estrella Instructions Print Language: Japanese Discharge Orders/Prescriptions Prescriptions: New oxycodone 5 mg tablet 5 mg PO Q6H PRN (Reason: pain) 3 Days Qty: 14 0RF Continued aspirin [Adult Low Dose Aspirin] 81 mg tablet,delayed release (DR/EC) 81 mg PO DAILY atorvastatin [Lipitor] 40 mg tablet 40 mg PO QHS metoprolol tartrate [Lopressor] 50 mg tablet 25 mg PO BID amlodipine [Norvasc] 2.5 mg tablet 2.5 mg PO QHS Referrals / Follow Up: Flaca Estrella MD [Primary Care Provider] - Disposition Disposition (needs filled in before D/C Order can be placed): Home, Self Care 07/02/24 1723 Khoa Gonzalez MD CC: Dr. Flaca Estrella MD Signed [facility] MR/POSTOP.[facility] [place] 07-02-2024 MR/POSTOP.[facility] Medical Records Department [address] [place] [address] Anesthesia Postop Eval I 07/02/24 1238 MR#: [id number] Acct: [id number] Name: DUNCAN ANDERSON Rep #: [id number] : 1950 73 From: Prema Souza CRNA PCP: Dr. Flaca Estrella MD Status:REG [facility] [place] Race: C Location: [place] [address] Anesthesia: Postop Eval I Current Vital Signs Temperature: 98 F Pulse Rate: 72 Blood Pressure: 137/73 Respiratory Rate: 16 Pulse Ox: 100 Oxygen Delivery Method: Simple Mask Oxygen Flow Rate (L/min): 6 Assessment Airway patent: Yes Spontaneous unlabored respirations: Yes Mental status: Asleep nausea: No Vomiting: No Anesthesia Complication: No Fluid Hydration Crystalloid volume administer (ml): 1,000 Total IV fluid infused: 1,000 Progress Note Anesthesia document: Postop Eval 1 completed: Yes 07/02/24 1238 Date Prema Souza OXYGEN THERAPY TECHNICIAN Cosigner Signature: Date CC: Signed Normal [facility] MR/[id number] 07-02-2024 MR/POSTOPAN2 [facility] Medical Records Department [address] [facility] [place] [address] Anesthesia Postop Eval II 07/02/24 1316 MR#: [id number] Acct: [id number] Name: DUNCAN ANDERSON Rep #: [id number] : 1950 73 From: Prema Souza CRNA PCP: Dr. Flaca Estrella MD Status:REG [facility] [place] [place] Race: C Location: [place] [address] Anesthesia Postop Eval I Sum Postop Eval Completion status Anesthesia document: Postop Eval 1 completed: Yes Anesthesia Postop Eval I Summary Anesthesia Postop Eval I Summary: Anesthesia Postop Eval I: Assessment Summary Airway patent Yes 07/02/24 12:38 OXYGEN THERAPY TECHNICIAN.SONALOBMilad Spontaneous unlabored Yes 07/02/24 12:38 OXYGEN THERAPY TECHNICIAN.FLAKITO respirations Mental status Asleep 07/02/24 12:38 OXYGEN THERAPY TECHNICIAN.SONALOBY nausea No 07/02/24 12:38 OXYGEN THERAPY TECHNICIAN.SONALOBY Vomiting No 07/02/24 12:38 OXYGEN THERAPY TECHNICIAN.SONALOBY Anesthesia Postop Eval I: Fluid Summary Crystalloid volume administer 1,000 07/02/24 12:38 OXYGEN THERAPY TECHNICIAN.KARISHMAY (ml) Colloids volume administered ( ml) Blood Product volume administered (ml) Total IV fluid infused 1,000 07/02/24 12:38 OXYGEN THERAPY TECHNICIAN.SONALOBMilad Anesthesia Postop Eval I: Summary Notes Anesthesia Complication No 07/02/24 12:38 OXYGEN THERAPY TECHNICIAN.SONALOBMilad Anesthesia Complication Comment: Post-operative progress note Anesthesia: Postop Eval II Evaluation Mental status: Awake and Calm Pain Level: 0 nausea: No Vomiting: No Complications Anesthesia Complication: No 07/02/24 1316 Date Prema Souza CRNA Cosigner Signature: Date CC: Signed Normal [facility] Operative Reporton Operative Report [facility] Medical Records Department [address] [place] [address] Operative Report 07/02/24 1219 MR#: [id number] Acct: [id number] Name: DUNCAN ANDERSON Rep #: [id number] : 1950 73 From: Khoa Gonzalez MD PCP: Dr. Flaca Estrella MD Status:[facility] Location: [facility] Operative Report (Standard) Operative Information Date of Procedure: 07/02/24 Pre-Operative Diagnosis: 1. Bilaterally recurrent inguinal hernias Post-Operative Diagnosis: 1. Small direct right inguinal hernia herniating retroperitoneal fat and cord lipoma (removed) through indirect defect 2. Moderate size direct left inguinal hernia with small cord lipoma Surgery/Procedure Performed: 1. Robot-assisted bilateral inguinal hernia repair with mesh placement 2. Adhesiolysis hog scraper: Yes Coiler Operator: Isiah Ybarra Tasks completed by financial assistance specialist: Opening closing and Other (Inserting and removing suture) Type of Anesthesia: General/Supplemental RN Documented Start/Stop Times: Operation Date: 07/02/24 07:30 Case Time Into Pre-Op 07/02/24 05:36 Out of Pre-Op 07/02/24 07:21 Anesthesia Start 07/02/24 07:27 Into Room 07/02/24 07:27 Procedure Start 07/02/24 07:56 Procedure End 07/02/24 12:26 Anesthesia End 07/02/24 12:31 Out of Room 07/02/24 12:31 Into Recovery 07/02/24 12:33 Out of Recovery 07/02/24 13:33 Into Phase II Recovery 07/02/24 13:34 Out of Phase II 07/02/24 16:48 Procedure Start Time: 07:56 Procedure Stop Time: 12:26 Select all DRAINS/GRAFTS/IMPLANTS that apply: None Estimated Blood Loss: 25 Specimen collected: Yes Description of specimen(s) removed: Right cord lipoma Description of surgery: After appropriate identification the preoperative holding area the patient was brought to the operating room where he was positioned supine on the operating table. Preoperative antibiotics were completed and the patient was administered a general anesthetic. Patient's abdomen was then prepped and draped in usual sterile fashion. Formal timeout followed to confirm patient and procedure. Procedure was begun with Veress insufflation at Mckoy's point. Once pneumoperitoneum reached a set point pressure of 12 mmHg a right paramedian incision was made and a 8 mm robotic trocar was placed with a careful Optiview technique. Follow-up laparoscopic investigation revealed no inadvertent injury to the viscera below. However our Veress needle in the left upper quad was not immediately visible and there were numerous adhesions between the omentum as well as multiple loops of small bowel and the anterior abdominal wall mesh. Still with the right upper quadrant relatively devoid of any adhesions I was able to place an epigastric port site under laparoscopic visualization just inferior and lateral to the falciform ligament. I then began to take down some of the adhesions between the omentum and the anterior abdominal wall bluntly where possible. Several areas required sharp lysis of adhesions which was done with laparoscopic pamela. Yet with only 2 ports placed there were significant limitations to this process so I opted to place a third port in the right lower quadrant to fully facilitate this process. This was placed under laparoscopic visualization and this was a standard 5 mm laparoscopic port. I also requested both a laparoscopic LigaSure device and laparoscopic suction popcorn attendant device to accomplish this task. Great care was taken to free up both the left upper quadrant where the Veress needle remained in position and along the midline. In the left upper quadrant numerous omental adhesions were taken down until I could visualize the Veress needle in its entirety. I found that at 1 point it had penetrated the transverse mesocolon but appeared to have spared the colon itself. Thus the Veress needle was withdrawn and a third and final robotic port was placed through the Veress site. Along the mesh numerous loops of small bowel were adherent to the mesh but most of these loops were able to be bluntly swept off the surface of the mesh. This process of adhesiolysis required approximately 30 minutes of operative time. Once lysis of adhesions was complete the patient was placed in steep Trendelenburg and the robot was docked in standard fashion. In this positioning I could visualize a bit of Prolene suture on the left and some abnormal contouring of the peritoneum on the right overlying the area of the spermatic cord. Robotically, a peritoneal flap was created on the right extending from the medial umbilical ligament to the level of the ASIS (external) and was bluntly dissected to expose the medial parietal compartment and lateral visceral compartments. Medially I could visualize the pubic tubercle and developed the space of Retzius which I then worked laterally from and encountered a small direct inguinal hernia defect (more content not included)... Normal [facility] Surgery Specimen Level IIon 07-02-2024 Surgery Specimen Level II Patient Age/Sex Location Account Attending Physician DUNCAN ANDERSON 73/M [facility] [id number] Dr. Khoa Gonzalez MD Specimen: [id number] Received: 07/02/24 Status: TYRONE Pruett Num: [id number] Spec Type: Hernia Subm Dr: Dr. Khoa Gonzalez MD HEADER OPERATION: Laparoscopic robotic inguinal hernia with mesh PRE-OP DIAGNOSIS: Recurrent bilateral inguinal hernia TISSUE SUBMITTED: A- Cord lipoma MICROSCOPIC DIAGNOSIS A. Inguinal hernia, cord lipoma, removal: * Benign mature adipose tissue consistent with lipoma MICROSCOPIC DESCRIPTION Slides are reviewed. GROSS DESCRIPTION A. Received in formalin in a container labeled with the patient's name, date of , and cord lipoma are multiple gustafson-yellow, shaggy fragments of fatty tissue measuring 3.6 x 2.9 x 2.0 cm in aggregate. The largest fragments are sectioned to reveal gustafson-yellow, uniform surfaces with scattered hemorrhage. No necrosis is identified. Browning Processor sections are submitted in A1. [facility] 07/03/2024 CPT:38185 Patient Age/Sex Location Account Attending Physician DUNCAN ANDERSON 73/M [facility] [id number] Dr. Khoa Gonzalez MD Signed (signature on file) Dr. Latasha Schreiber, 07/03/24 1409 Normal [facility] Comment on above: Performed By: #### P CONSTANZAII #### [facility] [address] [place], [place], [address] Anion gap in Serum or Plasma Ordered By: Anirudh Craven on 06-29-2024 Anion gap [Moles/Vol] 9 mmol/L 5-15 [facility] BUN/creatinine ratioOrdered By: Anirudh Craven on 06-29-2024 Urea nitrogen/Creatinine [Mass ratio] 22.4 mg/mg High 10-20 [facility] Basic Metabolic Profile (BMP )on 06-29-2024 BUN/CRE 22.4 RATIO High -20 [facility] Comment on above: Performed By: #### L 100.0500, L500.2500 ####[facility] [address] [place], [address] Calcium [Mass/Vol] 9.1 mg/dL Normal 7.6-11.0 [facility] Comment on above: Performed By: #### L 100.0500, L500.2500 ####[facility] [address] [place], [address] Chloride [Moles/Vol] 105 mmol/L Normal 98-108 [facility] Comment on above: Performed By: #### L 100.0500, L500.2500 ####[facility] [address] [place], [address] CO2 [Moles/Vol] 25.6 mmol/L Normal 21.0-32.0 [facility] Comment on above: Performed By: #### L 100.0500, L500.2500 ####[facility] [address] [place], [address] Creatinine [Mass/Vol] 0.93 mg/dL Normal 0.70-1.20 [facility] Comment on above: Performed By: #### L 100.0500, L500.2500 ####[facility] [address] [place], [address] GAP 9 Normal 5-15 [facility] Comment on above: Performed By: #### L 100.0500, L500.2500 ####[facility] [address] [place], [address] GFR/1.73 sq M.predicted among non-blacks MDRD (S/P/Bld) [Vol rate/Area] 87 mL/min/{1.73_m2} Normal >60 [facility] Comment on above: Result Comment: mL/m in/1.73m2 CKD-EPI Creatinine Equation (2020) Performed By: #### L 100.0500, L500.2500 ####[facility] [address] [place], [address] Glucose [Mass/Vol] 108 mg/dL High 70-99 [facility] Comment on above: Performed By: #### L 100.0500, L500.2500 ####[facility] [address] [place], [address] Potassium [Moles/Vol] 3.8 mmol/L Normal 3.3-5.1 [facility] Comment on above: Performed By: #### L 100.0500, L500.2500 ####[facility] [address] [place], [address] Sodium [Moles/Vol] 140 mmol/L Normal 133-145 [facility] Comment on above: Performed By: #### L 100.0500, L500.2500 ####[facility] [address] [place], [address] Urea nitrogen [Mass/Vol] 21 mg/dL High 4-19 [facility] Comment on above: Performed By: #### L 100.0500, L500.2500 ####[facility] [address] [place], [address] CBC-Complete Blood Cnt No Di ffon 06-29-2024 Erythrocyte distribution width (RBC) [Ratio] 13.1 % Normal 11.6-14.6 [facility] Comment on above: Performed By: #### L 100.0500, L500.2500 ####[facility] [address] [place], [address] Hematocrit (Bld) [Volume fraction] 43.5 % Normal 40-54 [facility] Comment on above: Performed By: #### L 100.0500, L500.2500 ####[facility] [address] [place], [address] Hemoglobin (Bld) [Mass/Vol] 14.8 g/dL Normal 13.0-16.5 [facility] Comment on above: Performed By: #### L 100.0500, L500.2500 ####[facility] [address] [place], [address] MCH (RBC) [Entitic mass] 28.7 pg Normal 27.0-32.0 [facility] Comment on above: Performed By: #### L 100.0500, L500.2500 ####[facility] [address] [place], [address] MCHC (RBC) [Mass/Vol] 34.0 g/dL Normal 32-36 [facility] Comment on above: Performed By: #### L 100.0500, L500.2500 ####[facility] [address] [place], [address] MCV (RBC) [Entitic vol] 84.5 fL Normal 80-94 [facility] Comment on above: Performed By: #### L 100.0500, L500.2500 ####[facility] [address] [place], [address] Platelet mean volume (Bld) [Entitic vol] 10.8 fL Normal 6.2-12.0 [facility] Comment on above: Performed By: #### L 100.0500, L500.2500 ####[facility] [address] [place], [address] Platelets (Bld) [#/Vol] 169 10*3/uL Normal 150-450 [facility] Comment on above: Performed By: #### L 100.0500, L500.2500 ####[facility] [address] [place], [address] RBC (Bld) [#/Vol] 5.15 10*6/uL Normal 4.6-6.2 [facility] Comment on above: Performed By: #### L 100.0500, L500.2500 ####[facility] [address] [place], [address] RDW SD 40.5 fl Normal 35.1-43.9 [facility] Comment on above: Performed By: #### L 100.0500, L500.2500 ####[facility] [address] [place], [address] WBC (Bld) [#/Vol] 5.6 10*3/uL Normal 4.4-11.0 [facility] Comment on above: Performed By: #### L 100.0500, L500.2500 ####[facility] [address] [place], [address] Carbon dioxide, total [Moles /volume] in Central venous bloodOrdered By: Anirudh Craven on 06-29-2024 CO2 [Moles/Vol] 25.6 mmol/L 21.0-32.0 [facility] Chloride assayOrdered By: Ariel Craven on 06-29-2024 Chloride [Moles/Vol] 105 mmol/L 98-108 [facility] Erythrocyte distribution wid th (RBC) [Ratio]Ordered By: Anirudh Craven on 06-29-2024 Erythrocyte distribution width (RBC) [Entitic vol] 40.5 fL 35.1-43.9 [facility] Erythrocyte distribution wid th ratioOrdered By: Anirudh Craven on 06-29-2024 Erythrocyte distribution width (RBC) [Ratio] 13.1 % 11.6-14.6 [facility] Erythrocyte distribution wid th standard deviationOrdered By: Anirudh Craven on 06-29-2024 Erythrocyte distribution width (RBC) [Ratio] 40.5 fl 35.1-43.9 [facility] GFR/1.73 sq M.predicted peter g non-blacks MDRD (S/P/Bld) [Vol rate/Area]Ordered By: Anirudh Craven on 06-29-2024 Estimated GFR (MDRD) Non-Af Amer 87 >60 [facility] Comment on above: mL/min/1.73m2 CKD-EP I Creatinine Equation (2020) Glomerular filtration rate ( GFR) estimation/1.73 sq m using serum, plasma, or whole bOrdered By: Anirudh Craven on 06-29-2024 GFR/1.73 sq M.predicted among non-blacks MDRD (S/P/Bld) [Vol rate/Area] 87 mL/min/{1.73_m2} >60 [facility] Comment on above: mL/min/1.73m2 CKD-EP I Creatinine Equation (2020) Hematocrit Auto (Bld) [Volum e fraction]Ordered By: Anirudh Craven on 06-29-2024 Hematocrit (Bld) [Volume fraction] 43.5 % 40-54 [facility] Hemoglobin measurementOrdere d By: Anirudh Craven on 06-29-2024 Hemoglobin (Bld) [Mass/Vol] 14.8 g/dL 13.0-16.5 [facility] MCV (mean corpuscular volume ) determinationOrdered By: Anirudh Craven on 06-29-2024 MCV (RBC) [Entitic vol] 84.5 fL 80-94 [facility] Mean corpuscular hemoglobin (MCH) determinationOrdered By: Anirudh Craven on 06-29-2024 MCH (RBC) [Entitic mass] 28.7 pg 27.0-32.0 [facility] Mean corpuscular hemoglobin concentration (MCHC) determinationOrdered By: Anirudh Craven on 06-29-2024 MCHC (RBC) [Mass/Vol] 34.0 g/dL 32-36 [facility] Mean platelet volume determi nationOrdered By: Anirudh Craven on 06-29-2024 Platelet mean volume (Bld) [Entitic vol] 10.8 fL 6.2-12.0 [facility] Platelet countOrdered By: Ariel Craven on 06-29-2024 Platelets (Bld) [#/Vol] 169 10*3/uL 150-450 [facility] Potassium (Unsp spec) [Mass/ Vol]Ordered By: Anirudh Craven on 06-29-2024 Potassium [Moles/Vol] 3.8 mmol/L 3.3-5.1 [facility] Potassium measurement (mass/ volume)Ordered By: Anirudh Craven on 06-29-2024 Potassium (Unsp spec) [Mass/Vol] 3.8 mmol/L 3.3-5.1 [facility] RBC Auto (Bld) [#/Vol]Ordere d By: Anirudh Craven on 06-29-2024 RBC (Bld) [#/Vol] 5.15 10*6/uL 4.6-6.2 [facility] Serum creatinine measurement (mass/volume)Ordered By: Anirudh Craven on 06-29-2024 Creatinine [Mass/Vol] 0.93 mg/dL 0.70-1.20 [facility] Serum glucose measurement (m ass/volume)Ordered By: Anirudh Craven on 06-29-2024 Glucose [Mass/Vol] 108 mg/dL High 70-99 [facility] Serum or plasma calcium yves urement (mass/volume)Ordered By: Anirudh Craven on 06-29-2024 Calcium [Mass/Vol] 9.1 mg/dL 7.6-11.0 [facility] Serum or plasma urea nitroge n measurement (mass/volume)Ordered By: Anirudh Craven on 06-29-2024 Urea nitrogen [Mass/Vol] 21 mg/dL High 4-19 [facility] Sodium levelOrdered By: Anirudh Craven on 06-29-2024 Sodium [Moles/Vol] 140 mmol/L 133-145 [facility] White blood cell (WBC) count Ordered By: Anirudh Craven on 06-29-2024 WBC (Bld) [#/Vol] 5.6 10*3/uL 4.4-11.0 [facility] MR/PAT.ANEon 06-24-2024 MR/PAT.ANE [facility] Medical Records Department [address] [place] [address] PAT - Anesthesia 06/24/24 1625 MR#: [id number] Acct: [id number] Name: DUNACN ANDERSON Rep #: [id number] : 1950 73 From: Anirudh Craven MD PCP: Dr. Flaca Estrella MD Status:PRE [facility] Y Race: C Location: [facility] Pre-Assessment Diagnosis/Proposed Procedure Planned Operative Procedure(s): ROBOTIC BILAT INGUINAL HERNIA WITH MESH Anesthesia History Anesthesia History - manager occupational: Anesthesia History - manager occupational Hx Hospitalization Yes: 2023 BOWEL OBSTRUCTION 06/24/24 15:33 Any Problems With Anesthesia No 06/24/24 15:33 Cholinesterase deficiency No 06/24/24 15:33 You/Your Family Experience No 06/24/24 15:33 fever (hyperthermia) with Relationship Recent Exposure to Contagious No 11/27/23 13:15 Disease Does patient have nerve No 06/24/24 15:33 stimulator Patient instructed to have device shut off --Does patient have Pacemaker or ICD? When Was Last Pacemaker Check QUESTION #4 FULL TEXT: You/Your Family Experience fever (hyperthermia) with Anesthesia Last Oral Intake Last Oral intake: Last Oral Intake NPO since Meds taken in AM with sips of water? Meds patient instructed to take am of surgery PONV PONV - manager occupational: PONV - manager occupational Female No 06/24/24 15:33 HX of Motion Sickness No 06/24/24 15:33 HX of N/V After Surgery No 06/24/24 15:33 Non-Smoker Yes 06/24/24 15:33 Duration of Surgery greater Yes 06/24/24 15:33 than 60 minutes Number of Risk Factors 2 06/24/24 15:33 PONV Score Moderate Risk 06/24/24 15:33 Height Weight Height Weight: Anesthesia: Height Weight Height 5 ft 10 in 03/31/24 09:35 Respiratory Assessment Respiratory Assessment - manager occupational: Respiratory Tract Infection Hx - manager occupational Hx Respiratory Tract Infection No 06/24/24 15:33 STOP Sleep Apnea STOP Sleep Apnea - manager occupational: STOP Sleep Apnea - manager occupational Hx Hypertension Yes: CONTROLLED ON MED 06/24/24 15:33 Hx Sleep Apnea No 06/24/24 15:33 CPAP BIPAP Do you snore loudly (louder No 06/24/24 15:33 than talking or can be heard Do you often feel tired/ Yes 06/24/24 15:33 fatigued/ sleepy during daytime? Has anyone observed you stop No 06/24/24 15:33 breathing during sleep? STOP Results Positive 06/24/24 15:33 QUESTION #5 FULL TEXT : Do you snore loudly (louder than talking or can be heard through closed doors)? Tobacco Use History Tobacco Use History - manager occupational: Tobacco Use History - manager occupational Tobacco Use Smoking Status Former smoker 06/24/24 15:33 Hx Tobacco Use No 06/24/24 15:33 Years Smoking Packs Smoked per Day Smoking Cessation Date was No - quit smoking greater 06/24/24 15:33 within the last 15 years than 15 years ago Hx Smoking Cessation Date Hx Smoking Cessation No 06/24/24 15:33 Counseling Hematologic Medial History Hematologic Hx - manager occupational: Hematologic Medical Hx - manager documentation Hx of Blood Transfusion No 06/24/24 15:33 Hx of Transfusion in last 3 No 06/24/24 15:33 Months Date of Last Transfusion (if within last 3 months) Ever experience any problems No 06/24/24 15:33 with transfusion(s)? Specify any problems Hx of Preganancy in last 3 N/A 06/24/24 15:33 Months Nurse Filling Out Transfusion DSCHRIBER 06/24/24 15:33 Questions: Date: 06/24/24 06/24/24 15:33 Time: 15:35 06/24/24 15:33 Patient unable to answer at this time (ie. confused, unrespo /Reproduction History /Reproductive History - manager occupational: /Reproductive Hx- manager occupational Hx Now No 06/24/24 15:33 Gestational Age (in weeks): EDC: Hx Hx Para Hx Section SAB No 06/24/24 15:33 [facility] Medical History (Updated 06/24/24 @ 15:40 by Nicole Adames) Loss of hearing Wears glasses Alcohol use Back pain Shortness of breath on exertion High cholesterol Heartburn Former smoker Leg cramps History of echocardiogram History of stress test Cardiology follow-up encounter Preoperative cardiovascular examination History of left heart catheterization (LHC) ( 09/08/99) Paroxysmal atrial fibrillation Essential hypertension Pure hypercholesterolemia Atherosclerotic heart disease of [place] coronary artery without angina pectoris Incarcerated ventral hernia Screening for intestinal cancer Epigastric pain Hypercholesterolemia Hypertension Home Medications ???Medication ???Instructions ???Recorded ???Last Taken ???Type aspirin 81 mg tablet,delayed 81 mg PO DAILY 07/27/21 0908/24 H istory relea (more content not included)... Normal [facility] Cardiology Visit Reporton Cardiology Visit Report [facility] [address] [place] [address] OFFICE VISIT Date of Service: 03/31/24 MR#: [id number] Acct: [id number] Name: DUNCAN ANDERSON Rep #: [id number] : 1950 Provider: Dr. Raymundo Canada MD Age/Sex: 73/M Location: [facility] Status: Signed HPI HPI History of Present Illness Details: Kip Anderson is a 73-year-old white male who presents today for outpatient cardiovascular follow up. He has a history of underlying CAD status post CABG superimposed upon a history of paroxysmal atrial fibrillation, hyperlipidemia, and hypertension. Patient underwent cardiovascular evaluation in May [address] [facility] in [place], [place] with a history of CAD status post a remote LAD bare- metal stent at [facility] [facility] in 1999 for concerns of chest discomfort. Echocardiogram at that time, demonstrated left ventricle was thought to be normal with an LVEF of 55 to 60%. He subsequently underwent evaluation with diagnostic cardiac catheterization. According to the report the LAD had a mid vessel lesion of 90% in-stent stenosis, the second left posterior lateral branch was noted to have a 90% stenosis, the intermediate ramus branch had a 100% stenosis, and the right PDA had a mid 50% stenosis. He subsequently underwent CABG on 06-15-2016 with a WHITE to the LAD, and SVG sequential graft to the first OM and second OM, and SVG graft to the third OM, and SVG graft to the intermediate ramus, and an SVG graft to the right PDA. From a cardiac standpoint, patient is doing well. He does not have any chest discomfort/heaviness/ti ghtness. His exercise tolerance is stable for his age. He does not have any worsening symptoms of shortness of breath. He denies any PND. He does not have any orthopnea. He does not have any symptoms of congestive heart failure. He does not have any palpitations that he is aware of. He does not have any lightheadedness or dizziness. He does not have any near-syncope or syncope. He does not have any lower extremity edema. He does not have any symptoms of claudication. Intake Vital Signs 01/22/23 13:40 03/30/24 07:47 03/31/24 09:35 Height 5 ft 10 in 5 ft 10 in 5 ft 10 in Weight: 194 lb BMI 27.8 BP 139/91 H Blood Pressure Location Lt brachial Position Sitting Respiration 16 Pulse 60 Pulse Source Monitor Intake Visit Reasons: 1 Y FU/PREV PFM [place] [employer] Required: No Accompanied by: Self Is patient in pain?: No Allergies ramipril (From Altace) Adverse Reaction (Unknown, Verified 03/31/24 09:43) GI Issues Medications ???Medication ???Instructions ???Recorded ???Confirmed ???Type aspirin 81 mg tablet,delayed 81 mg PO DAILY 07/27/21 03/31/24 History release (Adult Low Dose Aspirin) atorvastatin 40 mg tablet (Lipitor) 40 mg PO DAILY 01/22/23 03/31/24 History metoprolol tartrate 50 mg tablet 25 mg PO BID 01/22/23 03/31/24 History (Lopressor) amlodipine 2.5 mg tablet (Norvasc) 2.5 mg PO DAILY #90 tabs 12/27/23 03/31/24 Rx Have you fallen in the past year?: No PFSH Medical History History of steroid therapy High cholesterol Heartburn Former smoker Leg cramps History of echocardiogram History of stress test Cardiology follow-up encounter Preoperative cardiovascular examination History of left heart catheterization (LHC) ( 09/08/99) Paroxysmal atrial fibrillation Essential hypertension Pure hypercholesterolemia Atherosclerotic heart disease of [place] coronary artery without angina pectoris Incarcerated ventral hernia Screening for intestinal cancer Epigastric pain History of LA (myocardial infarction) Hypercholesterolemia Hypertension Heart disease Surgical History S/P umbilical hernia repair, follow-up exam Hx of rhinoplasty History of shoulder surgery History of coronary artery bypass surgery ( 06/15/16) History of angioplasty History of coronary artery stent placement History of bilateral inguinal hernia repair Family History Father Cancer Lung Mother Myocardial infarction, Onset Age: 93 Social History Smoking Status: Former smoker how long ago did patient quit smoking: quit in 1979 alcohol intake: current alcohol intake frequency: holidays/special occasions only substance use type: does not use caffeine: Yes Type: coffee Number of servings: 2 additional social history: denies vaping, denies marijuana use denies edibles, uses aspirin daily, ibuprofen as needed no family history blood clotting disorder ROS Const Const: Negative for fatigue, weakness, headache(s), daytime sleepiness or difficulty sleeping ENT ENT: Negati (more content not included)... Normal [facility] Surgery Visit Reporton 03-30 Surgery Visit Report [facility] [address] [place] [address]. [address] [place] [address] OFFICE VISIT Date of Service: 03/30/24 MR#: [id number] Acct: [id number] Name: DUNCAN ANDERSON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 postoperative visit following hybrid approach to umbilical hernia repair with robot assisted implantation of mesh. Original operation was undertaken 11/25/2023. Mr. Anderson reports that he is back to work and denies any pulling or pain experience from his most recent repair. He does note that he is having some more pain from his old inguinal hernias with this return to work. He denies any concerns with wound healing and confirms that he has been faithful with his use of topical silver application as recommended by plastic surgery for his umbilical wound. Objective Details: Constitutional: Cooperative, appreciative Abdomen: Overall well-healing appearance of patient's umbilical plasty with some invagination of the flaps. There is some scabbing inferiorly but no signs of infection. There is no fluctuance. Coding Level of Care Code Global Post Op Diagnoses S/P umbilical hernia repair, follow-up exam Z09 [facility] Medical History (Reviewed 12/24/23 @ 14:10 by Karin Toledo INDUSTRIAL MACHINE OPERATOR, INDUSTRIAL MACHINE OPERATOR-C) History of steroid therapy High cholesterol Heartburn Former smoker Leg cramps History of echocardiogram History of stress test Cardiology follow-up encounter Preoperative cardiovascular examination History of left heart catheterization (LHC) ( 09/08/99) Paroxysmal atrial fibrillation Essential hypertension Pure hypercholesterolemia Atherosclerotic heart disease of [place] coronary artery without angina pectoris Incarcerated ventral hernia Screening for intestinal cancer Epigastric pain History of [place] (myocardial infarction) Hypercholesterolemia Hypertension Heart disease Surgical History (Updated 01/03/24 @ 15:[address] Khoa Gonzalez MD) S/P umbilical hernia repair, follow-up exam Hx of rhinoplasty History of shoulder surgery History of coronary artery bypass surgery ( 06/15/16) History of angioplasty History of coronary artery stent placement History of bilateral inguinal hernia repair Family History Father Cancer Lung Mother Myocardial infarction, Onset Age: 93 Social History (Updated 12/10/23 @ 10:47 by Lindsey George) Smoking Status: Former smoker how long ago did patient quit smoking: quit in 1979 alcohol intake: current alcohol intake frequency: holidays/special occasions only substance use type: does not use caffeine: Yes Type: coffee Number of servings: 2 additional social history: denies vaping, denies marijuana use denies edibles, uses aspirin daily, ibuprofen as needed no family history blood clotting disorder Assessment and Plan (No Qualifiers) Assessment and Plan (1) S/P umbilical hernia repair, follow-up exam: Status: Chronic Comment: Patient now 5 weeks out from umbilical hernia repair with mesh placement umbilicoplasty given significantly redundant umbilical skin. He is overall well-healing with just some minor scabbing inferiorly. Plastic surgery is also staying with wound care recommendations. Patient denies any issues with his return to work and has been advised on gradual return to activity, otherwise. He seems committed to minimizing his risk for jeopardizing this repair. Once again, we discussed approaching his bilaterally recurrent inguinal hernias. I offered second opinion given that these are recurrent hernias, but Mr. Anderson insist that he is comfortable with our care and wishes to proceed at our recommendation. Therefore, I have offered him a follow-up visit 3 months from his date of surgery to assess his interest in approaching these recurrent inguinal hernias. Plan: ??? Patient asked to clean his umbilicoplasty concavity once weekly with a small volume of hydrogen peroxide ??? Gradual return to activity ??? Clinic visit in another 2 months to assess for interested in addressing recurrent inguinal hernias. 01/03/24 1534 Date Khoa Gonzalez MD [facility] Signature: Date (if applicable) CC: Normal [facility] Plastic Surgery Visit Report on 12-24-2023 Plastic Surgery Visit Report [facility] Plastic Reconstructive Surgery [address], [address] [place] [address] OFFICE VISIT Date of Service: 12/24/23 MR#: [id number] Acct: [id number] Name: DUNCAN ANDERSON Rep #: [id number] : 1950 Provider: RAFY jenkins Age/Sex: 73/M Location: [facility] Status: Signed Pt seen evaluated w/DANIELE. I personally interviewed exam the pt. I was involved in all aspects of pt's orders, interpretation of results treatment I agree with the DANIELE's note. There is a small area of reactive erythema around a small area of eschar between skin edges. The eschar is dry, no drainage. No concern for underlying mesh problem at this time. I talked to general surgery team. We will continue local wound care and close follow up. Intake Vital Signs 12/10/23 10:47 12/24/23 13:17 Height 5 ft 1 in 5 ft 10 in Weight: 187 lb 188 lb 2 oz BMI 35.3 26.9 BP 135/83 H 139/78 H Blood Pressure Location Rt brachial Rt brachial Position Sitting Sitting Respiration 16 16 Pulse 61 78 Temp 97.9 F 98.4 F Temp Source Oral Oral Pulse Oximetry (%) 92 95 Oxygen Delivery Method room air room air Intake Visit Reasons: Postop surgery 11/25/23 Chief Complaint: post op Is patient in pain?: No Allergies ramipril (From Altace) Adverse Reaction (Unknown, Verified 12/24/23 13:34) GI Issues Medications ???Medication ???Instructions ???Recorded ???Confirmed ???Type aspirin 81 mg tablet,delayed 81 mg PO DAILY 07/27/21 12/24/23 History release (Adult Low Dose Aspirin) atorvastatin 40 mg tablet (Lipitor) 40 mg PO DAILY 01/22/23 12/24/23 History metoprolol tartrate 50 mg tablet 25 mg PO BID 01/22/23 12/24/23 History (Lopressor) amlodipine 2.5 mg tablet (Norvasc) 2.5 mg PO DAILY #90 tabs 10/08/23 12/24/23 Rx Have you fallen in the past year?: No Nurse's Note: pt here for post op no issues PFSH Medical History (Reviewed 12/24/23 @ 14:10 by Karin Toledo INDUSTRIAL MACHINE OPERATOR, INDUSTRIAL MACHINE OPERATOR-C) History of steroid therapy High cholesterol Heartburn Former smoker Leg cramps History of echocardiogram History of stress test Cardiology follow-up encounter Preoperative cardiovascular examination History of left heart catheterization (LHC) ( 09/08/99) Paroxysmal atrial fibrillation Essential hypertension Pure hypercholesterolemia Atherosclerotic heart disease of [place] coronary artery without angina pectoris Incarcerated ventral hernia Screening for intestinal cancer Epigastric pain History of [place] (myocardial infarction) Hypercholesterolemia Hypertension Heart disease Surgical History (Updated 12/24/23 @ 14:14 by Karin Toledo INDUSTRIAL MACHINE OPERATOR, INDUSTRIAL MACHINE OPERATOR-C) S/P umbilical hernia repair, follow-up exam Hx of rhinoplasty History of shoulder surgery History of coronary artery bypass surgery ( 06/15/16) History of angioplasty History of coronary artery stent placement History of bilateral inguinal hernia repair Family History Father Cancer Lung Mother Myocardial infarction, Onset Age: 93 Social History (Updated 12/10/23 @ 10:47 by Lindsey George) Smoking Status: Former smoker how long ago did patient quit smoking: quit in 1979 alcohol intake: current alcohol intake frequency: holidays/special occasions only substance use type: does not use caffeine: Yes Type: coffee Number of servings: 2 additional social history: denies vaping, denies marijuana use denies edibles, uses aspirin daily, ibuprofen as needed no family history blood clotting disorder HPI Postop surgery 11/25/23 Details: Postop visit from his recent surgery on 11/25/23 where he underwent Umbilicoplasty via local soft tissue rearrangement, 6 x 7cm. He also had an umbilical hernia repair by Dr. Gonzalez at the same time. He comes in today denying any complaints. He is denying any pain, redness or drainage. 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 ROS General General: No fatigue or fever(s) HENMT HENMT: No sore throat/mouth sore or nasal congestion Endo Endocrine: No thyroid disease or polydipsia Skin Skin: No Bleeding or bruising Musc Musculoskeletal: No joint pain or joint stiffness Neuro Neurological: No headache(s) and No numbness Cardio Cardiovascular: No chest pain, fatigue or shortness of breat with exertion Psych Psychiatric: No depression Resp Respiratory: No shortness of breath or Cough Gastro Gastrointestinal: No diarrhea, constipation, nausea or vomiting Jose G Hematologic: No abnormal bleeding Exam Const General: cooperative and comfortable HENMT Head: normocephalic and atraumatic Neck Neck: full ROM Resp Effort Inspection: normal respiratory effort and able to speak in complete sentences Cardio Rate: regular rate Skin Other: Neoumbilic (more content not included)... Normal [facility] Surgery Visit Reporton 12-23 Surgery Visit Report [facility] [address] [place] [address] OFFICE VISIT Date of Service: 12/24/23 MR#: [id number] Acct: [id number] Name: DUNCAN ANDERSON Rep #: [id number] : 1950 Provider: FELISHA garnica Age/Sex: 73/M Location: [facility] Status: Signed Intake Vital Signs 12/10/23 10:47 12/24/23 13:17 Height 5 ft 1 in 5 ft 10 in Weight: 187 lb 188 lb 2 oz BMI 35.3 26.9 BP 135/83 H 139/78 H Blood Pressure Location Rt brachial Rt brachial Position Sitting Sitting Respiration 16 16 Pulse 61 78 Temp 97.9 F 98.4 F Temp Source Oral Oral Pulse Oximetry (%) 92 95 Oxygen Delivery Method room air room air Intake Visit Reasons: WOUND CHECK Chief Complaint: post op wound check Is patient in pain?: No Allergies ramipril (From Altace) Adverse Reaction (Unknown, Verified 12/24/23 13:34) GI Issues Medications ???Medication ???Instructions ???Recorded ???Confirmed ???Type aspirin 81 mg tablet,delayed 81 mg PO DAILY 07/27/21 12/24/23 History release (Adult Low Dose Aspirin) atorvastatin 40 mg tablet (Lipitor) 40 mg PO DAILY 01/22/23 12/24/23 History metoprolol tartrate 50 mg tablet 25 mg PO BID 01/22/23 12/24/23 History (Lopressor) amlodipine 2.5 mg tablet (Norvasc) 2.5 mg PO DAILY #90 tabs 10/08/23 12/24/23 Rx Have you fallen in the past year?: No Subjective Details: Patient is a 73 y/o M I am following s/p robotic -assisted umbilical hernia repair with mesh placement by Dr. Gonzalez on 11/25/23. Patient returns for a follow-up visit. He denies any pa in/discomfort at the incision site. This procedure was a combo case with Dr. Machuca from plastic surgery. Patient has also been follow-up with their office as well. He denies any nausea, vomiting. He notes appetite and bowel habits have returned to normal. He notes there is a yellow scab in the middle of his incision. He was provided Silver Med antimicrobial hydrogel to use twice daily on the area. He denies any drainage and was told to stop using any triple antibiotic ointment. Objective Details: Abdomen- soft, nontender. Incisions c/d/i. Umbilical incision is intact with central yellow eschar noted. Surrounding irritation similar to multiple abrasions with redness. Coding Level of Care Code Global Post Op Diagnoses S/P umbilical hernia repair, follow-up exam Z09 [facility] Medical History (Reviewed 12/24/23 @ 14:10 by Karin Toledo INDUSTRIAL MACHINE OPERATOR, INDUSTRIAL MACHINE OPERATOR-C) History of steroid therapy High cholesterol Heartburn Former smoker Leg cramps History of echocardiogram History of stress test Cardiology follow-up encounter Preoperative cardiovascular examination History of left heart catheterization (LHC) ( 09/08/99) Paroxysmal atrial fibrillation Essential hypertension Pure hypercholesterolemia Atherosclerotic heart disease of [place] coronary artery without angina pectoris Incarcerated ventral hernia Screening for intestinal cancer Epigastric pain History of [place] (myocardial infarction) Hypercholesterolemia Hypertension Heart disease Surgical History (Updated 12/24/23 @ 14:14 by Karin Toledo INDUSTRIAL MACHINE OPERATOR, INDUSTRIAL MACHINE OPERATOR-C) S/P umbilical hernia repair, follow-up exam Hx of rhinoplasty History of shoulder surgery History of coronary artery bypass surgery ( 06/15/16) History of angioplasty History of coronary artery stent placement History of bilateral inguinal hernia repair Family History Father Cancer Lung Mother Myocardial infarction, Onset Age: 93 Social History (Updated 12/10/23 @ 10:47 by Lindsey George) Smoking Status: Former smoker how long ago did patient quit smoking: quit in 1979 alcohol intake: current alcohol intake frequency: holidays/special occasions only substance use type: does not use caffeine: Yes Type: coffee Number of servings: 2 additional social history: denies vaping, denies marijuana use denies edibles, uses aspirin daily, ibuprofen as needed no family history blood clotting disorder Assessment and Plan (No Qualifiers) Assessment and Plan (1) S/P umbilical hernia repair, follow-up exam: Status: Acute Plan: No lifting greater than 10 pounds for 5 weeks from surgery date Wound care instructions per plastic surgery Follow-up as needed with our office 12/24/23 1547 Date Lashonda Barrett Signature: Date (if applicable) CC: Dr. Khoa Gonzalez MD Normal [facility] Plastic Surgery Visit Report on 12-10-2023 Plastic Surgery Visit Report [facility] Plastic Re[facility]ive Surgery [address], [address] [place] [address] OFFICE VISIT Date of Service: 12/10/23 MR#: [id number] Acct: [id number] Name: DUNCAN ANDERSON Rep #: [id number] : 1950 Provider: Dr. Palmer Machuca MD Age/Sex: 72/M Location: [facility] Status: Signed Intake Vital Signs 3 11/25/23 06:23 11/27/23 13:15 12/10/23 10:47 Height 5 ft 10 in 5 ft 10 in 5 ft 1 in Weight: 187 lb BMI 35.3 BP 135/83 H Blood Pressure Location Rt brachial Position Sitting Respiration 16 Pulse 61 Temp 97.9 F Temp Source Oral Pulse Oximetry (%) 92 Oxygen Delivery Method room air Intake Visit Reasons: FOLLOW UP POST OP Chief Complaint: post op Is patient in pain?: No Allergies ramipril (From Altace) Adverse Reaction (Unknown, Verified 12/10/23 10:50) GI Issues Medications 3 ???Medication ???Instructions ???Recorded ???Confirmed ???Type aspirin 81 mg tablet,delayed 81 mg PO DAILY 07/27/21 12/10/23 History release (Adult Low Dose Aspirin) atorvastatin 40 mg tablet (Lipitor) 40 mg PO DAILY 01/22/23 12/10/23 History metoprolol tartrate 50 mg tablet 25 mg PO BID 01/22/23 12/10/23 History (Lopressor) amlodipine 2.5 mg tablet (Norvasc) 2.5 mg PO DAILY #90 tabs 10/08/23 12/10/23 Rx Have you fallen in the past year?: No Nurse's Note: pt here for post op [facility] Medical History History of steroid therapy High cholesterol Heartburn Former smoker Leg cramps History of echocardiogram History of stress test Cardiology follow-up encounter Preoperative cardiovascular examination History of left heart catheterization (LHC) ( 09/08/99) Paroxysmal atrial fibrillation Essential hypertension Pure hypercholesterolemia Atherosclerotic heart disease of [place] coronary artery without angina pectoris Incarcerated ventral hernia Screening for intestinal cancer Epigastric pain History of [place] (myocardial infarction) Hypercholesterolemia Hypertension Heart disease Surgical History (Updated 12/10/23 @ 09:50 by Trish Nation) S/P umbilical hernia repair, follow-up exam Hx of rhinoplasty History of shoulder surgery History of coronary artery bypass surgery ( 06/15/16) History of angioplasty History of coronary artery stent placement History of bilateral inguinal hernia repair Family History Father Cancer Lung Mother Myocardial infarction, Onset Age: 93 Social History (Updated 12/10/23 @ 10:47 by Lindsey George) Smoking Status: Former smoker how long ago did patient quit smoking: quit in 1979 alcohol intake: current alcohol intake frequency: holidays/special occasions only substance use type: does not use caffeine: Yes Type: coffee Number of servings: 2 additional social history: denies vaping, denies marijuana use denies edibles, uses aspirin daily, ibuprofen as needed no family history blood clotting disorder HPI FOLLOW UP POST OP Details: Doing well 2 weeks post op. No complaints. No drainage/fevers/ chills. Saw Dr. Gonzalez immediately before this visit and Dr. Coon happy with expected post-operative course. ROS General General: Yes good health; No fatigue, fever(s) or weight loss HENMT HENMT: No rhinitis, sore throat/mouth sore, nasal congestion, contacts or glaucoma Endo Endocrine: No thyroid disease, polydipsia, heat intolerance, cold intolerance, hepatitis or excessive urine Skin Skin: No Bleeding, bruising, changing moles or suspicious lesion Musc Musculoskeletal: No joint pain, joint stiffness, muscle weakness, back pain, osteoarthritis or Muscle aches/ myalgia Neuro Neurological: No headache(s), No lightheadedness and No numbness Cardio Cardiovascular: No chest pain, pacemaker, fatigue or shortness of breat with exertion Psych Psychiatric: No depression, claustrophobia or anxiety Resp Respiratory: No spitting up, shortness of breath, sleep apnea, asthma, emphysema, TB, Cough or Smoker Gastro Gastrointestinal: No diarrhea, constipation, blood in stool, nausea, vomiting or abdominal bloating Jose G Hematologic: No anemia, No bleeding and No abnormal bleeding Genitourinary: No urinary frequency, blood in urine or incontinence Exam Details Neoumbilicus healing well. Some reactive erythema, but no signs of infection/drainage. No hernia recurrence. Coding Level of Care Code Global Post Op Diagnoses S/P umbilical hernia repair, follow-up exam Z09 Assessment and Plan (No Qualifiers) Assessment and Plan (1) S/P umbilical hernia repair, follow-up exam: Status: Acute Plan: Expected course. Continue with ointment as instructed by Dr. Gonzalez. F/u in 2 weeks. Clinical Quality (more content not included)... Normal [facility] Surgery Visit Reporton 12-09 Surgery Visit Report [facility] [address] [place] [address] OFFICE VISIT Date of Service: 12/10/23 MR#: [id number] Acct: [id number] Name: DUNCAN ANDERSON Rep #: [id number] : 1950 Provider: Dr. Khoa rivas MD Age/Sex: 72/M Location: [facility] Status: Signed Intake Vital Signs 11/25/23 06:23 Height 5 ft 10 in Intake Visit Reasons: UMBILLICAL HERNIA DOS 11/24 Chief Complaint: umbilical hernia dos 11/24 Is patient in pain?: No Allergies ramipril (From Altace) Adverse Reaction (Unknown, Verified 12/10/23 10:50) GI Issues Medications ???Medication ???Instructions ???Recorded ???Confirmed ???Type aspirin 81 mg tablet,delayed 81 mg PO DAILY 07/27/21 12/10/23 History release (Adult Low Dose Aspirin) atorvastatin 40 mg tablet (Lipitor) 40 mg PO DAILY 01/22/23 12/10/23 History metoprolol tartrate 50 mg tablet 25 mg PO BID 01/22/23 12/10/23 History (Lopressor) amlodipine 2.5 mg tablet (Norvasc) 2.5 mg PO DAILY #90 tabs 10/08/23 12/10/23 Rx Have you fallen in the past year?: No Subjective Details: Patient presents following robot-assisted umbilical hernia repair with mesh on 11/25/2023. Since hospital discharge they have been doing well. They report minimal postoperative pain presently but suggest that there was some tenderness after the surgery. They have no wound concerns. They confirmed that they are abiding by lifting restrictions. Objective Details: Constitutional: No acute distress, cooperative Abdomen: Well-healing lateral port site incisions as well as umbilicoplasty. There is some mild hyperemia at the lower aspect of the incision which appears more consistent with simple inflammation related to surgical dissection and any concern for infection. Notably there is no fluctuance. There is some adherent scab and Dermabond glue which is gently removed from the incision lines which remain well-approximated. Coding Level of Care Code Global Post Op Diagnoses S/P umbilical hernia repair, follow-up exam Z09 [facility] Medical History History of steroid therapy High cholesterol Heartburn Former smoker Leg cramps History of echocardiogram History of stress test Cardiology follow-up encounter Preoperative cardiovascular examination History of left heart catheterization (LHC) ( 09/08/99) Paroxysmal atrial fibrillation Essential hypertension Pure hypercholesterolemia Atherosclerotic heart disease of [place] coronary artery without angina pectoris Incarcerated ventral hernia Screening for intestinal cancer Epigastric pain History of LA (myocardial infarction) Hypercholesterolemia Hypertension Heart disease Surgical History (Updated 12/10/23 @ 15:[address] Khoa Gonzalez MD) S/P umbilical hernia repair, follow-up exam Hx of rhinoplasty History of shoulder surgery History of coronary artery bypass surgery ( 06/15/16) History of angioplasty History of coronary artery stent placement History of bilateral inguinal hernia repair Family History Father Cancer Lung Mother Myocardial infarction, Onset Age: 93 Social History (Updated 12/10/23 @ 10:47 by Lindsey George) Smoking Status: Former smoker how long ago did patient quit smoking: quit in 1979 alcohol intake: current alcohol intake frequency: holidays/special occasions only substance use type: does not use caffeine: Yes Type: coffee Number of servings: 2 additional social history: denies vaping, denies marijuana use denies edibles, uses aspirin daily, ibuprofen as needed no family history blood clotting disorder Assessment and Plan (No Qualifiers) Assessment and Plan (1) S/P umbilical hernia repair, follow-up exam: Status: Acute Comment: Patient is 72-year-old male who is 17 days status post robot-assisted umbilical hernia repair with subsequent umbilical plasty. He is well-healing on exam. There is some scabbing of his wound but overall it is healing nicely. I have recommended trying to soften the remaining scab by applying a warm compress to his incision a couple of times but stressed not to leave the wound wet in any way. Additionally, I have recommended applying a thin smear of triple antibiotic ointment once daily. He is due to meet with plastic surgery for a follow-up exam after this visit. Lastly have stressed the need to remain adherent to activity restrictions for full 5 weeks postop. He does ask me imparting when we would consider approaching his inguinal hernias, however, would like to defer this conversation until he is more fully healed. Plan: ??? Wound care as above ??? Continued activity restrictions ??? Follow-up wound check in 2 weeks 12/10/23 1553 Date (more content not included)... Normal [facility] Surgery Specimen Level IIon 11-26-2023 Surgery Specimen Level II Patient Age/Sex Location Account Attending Physician DUCNAN ANDERSON 72/M [facility] [id number] Dr. Khoa Gonzalez MD Specimen: [id number] Received: 11/26/23 Status: TYRONE Pruett Num: [id number] Spec Type: Hernia Subm Dr: Dr. Khoa Gonzalez MD HEADER OPERATION: Laparoscopic robotic umbilical hernia, umbilicoplasty PRE-OP DIAGNOSIS: Umbilical hernia, recurrent bilateral inguinal hernia TISSUE SUBMITTED: A- Hernia sac, B- Umbilical skin MICROSCOPIC DIAGNOSIS A. Hernia sac, herniorrhaphy: Fibrosis and mild chronic inflammation. B. Skin from umbilical region, excision: Mild hyperkeratosis. Minimal dermal chronic inflammation. AM/mr 11/27/2023 MICROSCOPIC DESCRIPTION Slides are reviewed. GROSS DESCRIPTION A. Received in fixative is one container labeled with the patient's name and designated Hernia sac. The specimen consists of two pieces of congested soft tissue measuring in aggregate 11.0 x 7.0 x 2.0cm. No mass lesion is identified. Browning [employer] sections are submitted in two cassettes. B. Received in fixative is one container labeled with the patient's name and designated Umbilical skin. The specimen consists of a piece of gustafson-white to light brown congested irregular piece of skin measuring 19.0 x 9.0 x 0.2cm. Focal area of ulceration is noted. Skin appears markedly wrinkled. No obvious mass lesion is identified. Browning Processor sections are submitted in one cassette. GUS/ 11/26/2023 TC:3 CPT:49322, 61696 Patient Age/Sex Location Account Attending Physician DUNCAN ANDERSON/M [facility] [id number] Dr. Khoa Gonzalez MD Signed (signature on file) Dr. Douglas Gutiérrez, 11/27/23 1137 Normal [facility] Comment on above: Performed By: #### P SUII ####[facility] [id number] [facility] [place], [address] 12 Lead EKGon 11-25-2023 12 Lead EKG [facility] Cardiovascular Services [address] [place] [address] 12 Lead EKG 11/25/23 1249 MR#: [id number] Acct: [id number] Name: DUNCAN ANDERSON Rep #: [id number] : 1950 72 From: Raymundo Canada MD Attending Dr: Dr. Khoa Gonzalez MD Status: DEP [facility] Ordering Dr: Kevin Braun MD Date: 11/25/23 Location: [facility] Sex: M C Admitted: Test Reason : ST ELEVATION Blood Pressure : / mmHG Vent. Rate : 066 BPM Atrial Rate : 066 BPM P-R Int : 156 ms QRS Dur : 094 ms QT Int : 440 ms P-R-T Axes : 034 000 055 degrees QTc Int : 461 ms Normal sinus rhythm Low voltage QRS Borderline ECG No previous ECGs available Confirmed by DIMITRIS NEW, RAYMUNDO ([id number]), art editor KENDELL PIMENTEL ([id number]) on 11/28/2023 11:21:40 AM Referred By: Khoa Gonzalez Confirmed By:RAYMUNDO CANADA MD 11/28/23 1121 Date Raymundo Canada MD CC: Dr. Flaca Estrella MD; Dr. Kevin Braun MD; Dr. Khoa Gonzalez MD Signed Normal [facility] Consultation - Surgicalon Consultation - [facility] Medical Records Department [address] [place] [address] Consultation - Surgical 11/25/23 0717 MR#: [id number] Acct: [id number] Name: DUNCAN ANDERSON Rep #: [id number] : 1950 72 From: Palmer Machuca MD PCP: Dr. Flaca Estrella MD Status:REG [facility] Location: [place] [address] Assessment Plan Assessment/Plan (1) Umbilical hernia: PLAN: Plan I will plan to assist Dr. Gonzalez with umbilicoplasty later this morning following the hernia repair. Patient understands the plans for local soft tissue rearrangement. Understands risks of possible wounds, need for wound care, tissue necrosis. I talked the patient about other risks of surgery, including bleeding, infection, damage to surrounding structures, surgical site dehiscence, need for repeat operations, and failure to obtain the desired result. All of their questions were answered, and they agreed to proceed with surgery. HPI Consult Data Date of Consult: 11/25/23 HPI Narrative HPI Narrative: DUNCAN ANDERSON, is a 72 M who presents today for an umbilical hernia repair with Dr. King Gonzalez from general surgery. Dr. Gonzalez consulted me this morning for assistance with umbilicoplasty following the hernia repair. Patient reports that he's had the umbilical hernia for several years and that it's been enlarging. Imaging demonstrated chronic fat incarceration. No recent infections/skin inflammation. Not a smoker History of CABG in 2017. Follows consistently with the heart team here at [facility]. [facility] Medical History History of steroid therapy High cholesterol Heartburn Former smoker Leg cramps History of echocardiogram History of stress test Cardiology follow-up encounter Preoperative cardiovascular examination History of left heart catheterization (LHC) ( 09/08/99) Paroxysmal atrial fibrillation Essential hypertension Pure hypercholesterolemia Atherosclerotic heart disease of [place] coronary artery without angina pectoris Incarcerated ventral hernia Screening for intestinal cancer Epigastric pain History of LA (myocardial infarction) Hypercholesterolemia Hypertension Heart disease Home Medications ???Medication ???Instructions ???Recorded ???Last Taken ???Type aspirin 81 mg tablet,delayed 81 mg PO DAILY 07/27/21 11/24/23 History release (Adult Low Dose Aspirin) atorvastatin 40 mg tablet (Lipitor) 40 mg PO DAILY 01/22/23 11/24/23 History metoprolol tartrate 50 mg tablet 25 mg PO BID 01/22/23 11/25/23 History (Lopressor) amlodipine 2.5 mg tablet (Norvasc) 2.5 mg PO DAILY #90 tabs 10/08/23 11/25/23 Rx Allergy/AdvReac Type Severity Reaction Status Date / Time ramipril (From Altace) AdvReac Unknown GI Issues Verified 11/11/23 10:26 Family History Father Cancer Lung Mother Myocardial infarction, Onset Age: 93 Surgical History Hx of rhinoplasty History of shoulder surgery History of coronary artery bypass surgery ( 06/15/16) History of angioplasty History of coronary artery stent placement History of bilateral inguinal hernia repair Social History Smoking Status: Former smoker alcohol intake: current alcohol intake frequency: holidays/special occasions only substance use type: does not use caffeine: Yes Type: coffee Number of servings: 2 Physical Exam Narrative Abdomen Large umbilical hernia. Could not reduce. Skin is thinning over the herniated contents. No surrounding inflammation or signs of infection. Charges/Coding Visit Charges Office Visits / Consults: 71162 OV L3 New 30min 11/25/23 0727 Cosigner Signature (if applicable): CC: Dr. Flaca Estrella MD; Dr. Khoa Gonzalez MD Signed Normal [facility] Discharge Instructionon Discharge Instruction [facility] Medical Records Department [address] [place] [address] Instructions for Home/Discharge Instructions 11/25/23 1234 MR#: [id number] Acct: [id number] Name: DUNCAN ANDERSON Rep #: [id number] : 1950 72 From: Khoa Gonzalez MD PCP: Dr. Flaca Estrella MD Status:DEP [facility] Discharge Instructions Diet Discharge Diet: No restrictions Activity May shower in (days): 2 Ice area for (Minutes): 20 Lifting Restrictions: No lifting greater than 10 pounds x 5 weeks postop Dressing / Incision Call your doctor if your incision/area has: Sudden Increased Bleeding, Increased Pain/ Swelling, Increased Redness, Foul Smelling Discharge and Swelling at the incision site Call your doctor if you observe: Fever of 101 or Higher Remove Dressing in: 5 days Cleanse incision/area with: Soap Water Follow Up Care Please Follow Up With: Khoa Gonzalez MD When: 7-10 days postop Test Results: Test results from this visit will be discussed in further detail at your follow-up appointment, if applicable. Discharge Plan Admission Primary Reason for Your Visit: Umbilical hernia repair Attending Provider: Khoa Gonzalez Primary Care Provider: Flaca Estrella Instructions Print Language: Japanese Discharge Orders/Prescriptions Prescriptions: New oxycodone 5 mg tablet 5 mg PO Q6H PRN (Reason: pain) 3 Days Qty: 10 0RF Continued aspirin [Adult Low Dose Aspirin] 81 mg tablet,delayed release (DR/EC) 81 mg PO DAILY atorvastatin [Lipitor] 40 mg tablet 40 mg PO DAILY metoprolol tartrate [Lopressor] 50 mg tablet 25 mg PO BID amlodipine [Norvasc] 2.5 mg tablet 2.5 mg PO DAILY Qty: 90 3RF Referrals / Follow Up: Flaca Estrella MD [Primary Care Provider] - Disposition Disposition (needs filled in before D/C Order can be placed): Home, Self Care 11/27/23 1043 Khoa Gonzalez MD CC: Dr. Flaca Estrella MD Signed Normal [facility] L501.4020on 11-25-2023 TROPONIN-I HS 9 pg/mL Normal 3.0-78.0 [facility] Comment on above: Order Comment: 'TROP ' Serial specimen #1, #2 or #3: 1 Result Comment: Beni rivera Note: New Test Units and Gender Specific Reference Ranges. For more information see Policy Stat Procedure Mckenzie High Sensitivity Troponin (TNIH) and attachments. Performed By: #### L 501.4020 ####[facility] [id number] [place], [address] MR/POSTOP.ANEon 11-25-2023 MR/POSTOP.[facility] Medical Records Department [address] [place] [address] Anesthesia Postop Eval I 11/25/23 1239 MR#: [id number] Acct: [id number] Name: DUNCAN ANDERSON Rep #: [id number] : 1950 72 From: Kevin Braun MD PCP: Dr. Flaca Estrella MD Status:REG SDC Y Race: C Location: [place] [address] Anesthesia: Postop Eval I Current Vital Signs Temperature: 98.2 F Pulse Rate: 73 Blood Pressure: 154/73 Respiratory Rate: 16 Pulse Ox: 93 Assessment Airway patent: Yes Spontaneous unlabored respirations: Yes nausea: No Vomiting: No Anesthesia Complication: No Fluid Hydration Crystalloid volume administer (ml): 2,000 Total IV fluid infused: 2,000 Progress Note Anesthesia document: Postop Eval 1 completed: Yes 11/25/23 1240 Date Kevin Braun MD Cosign Signature: Date CC: Signed Normal [facility] [id number] 11-25-2023 [facility] Medical Records Department [address] [place] [address] Anesthesia Postop Eval II 11/25/23 1240 MR#: [id number] Acct: [id number] Name: DUNCAN ANDERSON Rep #: [id number] : 1950 72 From: Kevin Braun MD PCP: Dr. Flaca Estrella MD Status:REG SDC Y Race: C Location: [place] [address] Anesthesia Postop Eval I Sum Postop Eval Completion status Anesthesia document: Postop Eval 1 completed: Yes Anesthesia Postop Eval I Summary Anesthesia Postop Eval I Summary: Anesthesia Postop Eval I: Assessment Summary Airway patent Yes 11/25/23 12:39 Spontaneous unlabored Yes 11/25/23 12:39 respirations Mental status nausea No 11/25/23 12:39 Vomiting No 11/25/23 12:39 Anesthesia Postop Eval I: Fluid Summary Crystalloid volume administer 2,000 11/25/23 12:39 (ml) Colloids volume administered ( ml) Blood Product volume administered (ml) Total IV fluid infused 2,000 11/25/23 12:39 Anesthesia Postop Eval I: Summary Notes Anesthesia Complication No 11/25/23 12:39 Anesthesia Complication Comment: Post-operative progress note Anesthesia: Postop Eval II Evaluation Mental status: Awake Pain Level: 1 nausea: No Vomiting: No 11/25/23 1241 Date Kevin Braun MD Cosigner Signature: Date CC: Signed Normal [facility] Operative Reporton Operative Report [facility] Medical Records Department [address] [place] [address] Operative Report 11/25/23 1321 MR#: [id number] Acct: [id number] Name: DUNCAN ANDERSON Rep #: [id number] : 1950 72 From: Palmer Machuca MD PCP: Dr. Flaca Estrella MD Status:[facility] Location: [facility] Operative Report Date of Procedure: 11/25/23 Surgery/Procedure Date: 25 November 2023 Incision/Procedure Start Time: 7: 40 am Incision Close/Procedure End Time: 12:39 pm PATIENT: Duncan Anderson GENERAL SURGEON: Khoa Gonzalez MD PLASTIC SURGEON: Palmer Machuca MD PRE-OPERATIVE DIAGNOSIS: Umbilical Hernia POST-OPERATIVE DIAGNOSIS: Same PROCEDURE PERFORMED: 1) Umbilicoplasty via local soft tissue rearrangement, 6 x 7 cm (CPT 68811) OPERATIVE FINDINGS: Residual hernia skin, devitalized, with large circular full-thickness defect down to fascia. Hernia skin was excised back to healthy bleeding abdominal tissue on the margins of the hernia defect. INDICATIONS: Duncan Anderson is a 72-year-old male with past medical history including an umbilical hernia. I was consulted by the general surgery team this morning to be involved in his care. Dr. Gonzalez asked me to help with the recreation of an umbilicus following umbilical hernia repair. I met the patient in preoperative holding and consented him. We talked about the risks of surgery. I talked the patient extensively about infection, surgical site dehiscence and wound formation, need for wound care, need for repeat operations, failure to obtain the desired result with mesh exposure and need for removal of foreign body at the base of the wound. All of their questions were answered, and they agreed to proceed with surgery. OPERATIVE DETAILS: Patient was taken back to the operating room by Dr. Gonzalez for umbilical hernia repair. Please see separate operative note for this portion of the procedure. Plastic surgery was called in the room following the hernia repair. The mesh had been placed as an underlay beneath the fascia and the only foreign body above the fascia were Prolene sutures. We began the procedure by excising the devitalized residual hernia sac tissue/skin with curved Blake scissors. I then created two separate 2 x 1 cm advancement rectangular flaps on the lateral margins of the wound with curved Blake scissors. The edges of these flaps were then sutured to the base of the wound on the fascia with 2-0 PDS suture to make an indentation to recreate an umbilicus. I then created (with 15 blade and Bovie via undermining) W-plasty advancement flaps superiorly and inferiorly by creating triangular cranial and caudal flaps that were advanced and sutured to the skin of the rectangular advancement flaps with 3-0 Monocryl deep dermal sutures. The dogears at the corners next the triangular flaps were then excised with curved Blake scissors. This created a deeper indentation with rectangular flaps and a slightly lesser indentation with the W-plasty flaps. The total area of local soft tissue rearrangement and advancement was 6 x 7 cm. The incisions were closed with 3-0 Monocryl deep dermal sutures followed by 4-0 Monocryl running subcuticular sutures. Dermabond was applied. Patient was awaken and taken to the PACU in stable condition. EBL: 20 cc total operation Anesthesia: General ASA: 3 IVF: 2.4 L of LR UOP: 600 cc Transfusions: none POST-OPERATIVE PLAN: F/u with PSU in clinic in 1 week to examine wounds. 11/25/23 1650 Cosigner Signature (if applicable): CC: Dr. Flaca Estrella MD; Dr. Khoa Gonzalez MD; Dr. Palmer Machuca MD Signed Normal [facility] Operative Report [facility] Medical Records Department [address] [facility] [place] [address] Operative Report 11/25/23 1228 MR#: [id number] Acct: [id number] Name: DUNCAN ANDERSON Rep #: [id number] : 1950 72 From: Khoa Gonzalez MD PCP: Dr. Flaca Estrella MD Status:[facility] Location: [facility] Report of Operation Date of Procedure: 11/25/23 Pre-Operative Diagnosis: Chronically incarcerated umbilical hernia with omentum Post-Operative Diagnosis: Same Surgery/Procedure Performed:: 1. Robot-assisted umbilical hernia repair with mesh placement 2. Umbilicoplasty Description of Surgical Findings:: ??? Viable omentum within attenuated hernia sac ??? 3 cm fascial defect ??? Laparoscopic evidence of bilateral direct inguinal hernias Surgeon: Khoa Gonzalez nuclear licensing engineer: Palmer Machuca nuclear licensing engineer: Daniel Cabrera Type of Anesthesia: General/Supplemental Anesthesiologist: Kevin Braun Specimen's removed: 1. Hernia sac 2. Redundant umbilical skin Drains: None Estimated Blood Loss (mL): 20 Description of Procedure: After appropriate identification in the preoperative holding area, the patient was brought to the operating room suite where he was positioned supine the operating table. Preoperative antibiotics were administered. Patient was then induced with a general anesthetic. Patient's abdomen was prepped and draped in the usual sterile fashion. A formal timeout followed to confirm patient and procedure. Procedure was begun with a 3 cm infraumbilical curvilinear incision directly adjacent to the inferior aspect of patient's hernia sac. I then made a vertical incision extending along the inferior aspect of patient's hernia sac until we reached the apex of the hernia. Tediously I used a combination of blunt dissection and selective electrocautery to free the underlying hernia sac and contents from the overlying attenuated umbilical skin. Once this separation was complete I then cleared the fascial edges circumferentially of soft tissue adhesions. Then the hernia sac was bisected and I encountered well???perfused/viable omentum. I attempted manual reduction of these contents but found a significant size mismatch between the volume of the omentum and the just over 3 cm diameter fascial defect. To compensate for this mismatch I extended the fascial defect by approximately 1.5 cm caudad and cephalad. With this enlargement of the opening I was then successful with manual reduction of the hernia contents back to the peritoneal cavity. Next the fascial defect was used as an entry point for patient's 10 x [address] mesh as well as a vantage point for placement of our initial trocar in the left upper quadrant. Then the defect was closed using running #1 Prolene suture in a bidirectional fashion and tying in the middle. Pneumoperitoneum was established and laparoscopic investigation revealed no inadvertent injury to the viscera below. Two additional 8 mm robotic trocars were placed along the abdominal wall laterally taking care to avoid the bony prominences of the costal margin and the ASIS. A transversus abdominis plane block was created with 100 mL of a combination cocktail using Exparel, Marcaine, and injectable saline under laparoscopic vision. The robot was then brought in and docked in standard fashion. Robotically a peritoneal flap was raised approximately 2 cm medial from my trocars and carried this away towards the contralateral abdominal wall. However, as I neared the now???closed hernia defect the peritoneal lining proved to be too attenuated and simply shredded with the slightest traction. Thus this preperitoneal placement was abandoned and I used limited electrocautery to take down some post peritoneal fat inferiorly as well as the falciform ligament superiorly. I then addressed the hernia closure directly and measured my dissection to that point. I found a substantial diastasis superiorly that would have compromised the lie of my mesh so I chose to reapproximate the rectus bellies in this location with a #1 stratafix suture by running the fascial defect closed for a span of approximately 6cm and then running the suture back upon itself. Next the 10 x 15 cm Ventralight mesh was tacked up to the underside of the the peritoneum and a 3-0 V-Loc suture was used to chandelier the mesh. This V-Loc suture was then run towards the operating side of the opening. A second 3-0 V-Loc suture was used to approximate the longitudinal midline of the mesh to the patient's midline. Then additional 3-0 V-Loc sutures were used to run the circumference of the mesh against the underside of the abdominal wall. A 3-0 Vicryl suture was used to loosely tacked some viable fatty post peritoneal tissue to the underside of the mesh to act as a barrier to adhesions and try to preserve the peritoneal edge from that point inferiorly. The needles were removed from the robot under lapar (more content not included)... Normal [facility] 12 Lead EKGon 11-12-2023 12 Lead EKG [facility] Cardiovascular Services [address] [place] [address] 12 Lead EKG 11/12/23 1127 MR#: [id number] Acct: [id number] Name: DUNCAN ANDERSON Rep #: [id number] : [id number] From: Khoa Le MD Attending Dr: Dr. Khoa Gonzalez MD Status: PRE [facility] [place] Dr: Anirudh Craven MD Date: 11/12/23 Location[place] [facility] [place] Sex: M C Admitted: Test Reason : PREOP Blood Pressure : / mmHG Vent. Rate : 067 BPM Atrial Rate : 067 BPM P-R Int : 152 ms QRS Dur : 088 ms QT Int : 408 ms P-R-T Axes : 031 -10 043 degrees QTc Int : 431 ms Normal sinus rhythm Inferior infarct , age undetermined Abnormal ECG Confirmed by Khoa Le ([id number]), art editor KENDELL PIMENTEL ([id number]) on 11/13/2023 8:22:03 AM Referred By: Khoa Gonzalez Confirmed By:Khoa Le 11/13/23821 Date Khoa Le MD CC: Dr. Flaca Estrella MD; Dr. Anirudh Craven MD; Dr. Khoa Gonzalez MD Signed Normal [facility] Basophil percentageOrdered B y: Flaca Estrella on 01-18-2023 Chloride [Moles/Vol] 107 mmol/L 98-107 [facility] Glucose [Mass/Vol] 102 mg/dL 74-106 [facility] Comment on above: Fasting Glucose resu lt from 100 to 125 mg/dL suggests IMPAIRED HOMEOSTASIS per A.D.A. criteria. Potassium [Moles/Vol] 4.3 mmol/L 3.5-5.1 [facility] Sodium [Moles/Vol] 139 mmol/L 136-145 [facility] Laboratory - Chemistry and C hemistry - challengeOrdered By: Flaca Estrella on 01-18-2023 ALT [Catalytic activity/Vol] 32 U/L 16-61 [facility] CO2 [Moles/Vol] 29.0 mmol/L 21.0-32.0 [facility] Urea nitrogen/Creatinine [Mass ratio] 21.8 mg/mg 10-20 [facility] No Panel InformationOrdered By: Flaca Estrella on 01-18-2023 Estimated GFR (MDRD) Amer 118 mL/min >60 [facility] Comment on above: GFR Calc Estimated GFR (MDRD) Non-Af Amer 97 mL/min >60 [facility] Comment on above: Non- GFR Calc Urine Microalbumin/Creatinine Ratio 18.3 mg/g CRE <30 [facility] Serum or plasma calcium yves urement (mass/volume)Ordered By: Flaca Estrella on 01-18-2023 Calcium [Mass/Vol] 8.6 mg/dL 8.5-10.1 [facility] Serum or plasma creatinine m easurement (mass/volume)Ordered By: Flaca Estrella on 01-18-2023 Creatinine [Mass/Vol] 0.83 mg/dL 0.70-1.30 [facility] Comment on above: The validity of the calculated GFR & GFRAA in patients over 70 years has not been determined. Clinical correlation is essential. Serum or plasma urea nitroge n measurement (mass/volume)Ordered By: Flaca Estrella on 01-18-2023 Urea nitrogen [Mass/Vol] 18 mg/dL 7-18 [facility] Thin prep Papanicolaou smear with manual screeningOrdered By: Flaca Estrella on 01-18-2023 Thin prep Papanicolaou smear with manual screening 21 U/L 15-37 [facility] Thin prep Papanicolaou smear with manual screening 3 5-15 [facility] Thin prep Papanicolaou smear with manual screening 13.7 mg/L NO RANGE EST. [facility] Urine creatinine measurement (mass/volume)Ordered By: Flaca Estrella on 01-18-2023 Creatinine (U) [Mass/Vol] 75.00 mg/dL NO RANGE EST. [facility] Basophil percentageOrdered B y: Aura Butts on 09-19-2022 Bilirubin [Mass/Vol] 0.50 mg/dL 0.20-1.00 [facility] Comment on above: For patients on eltr ombopag therapy, use of Dimension Mckenzie TBIL is not recommended. Cholesterol [Mass/Vol] 136 mg/dL <200 [facility] Comment on above: <200 mg/dL Desirable 200-240 mg/dL Borderline >240 mg/dL High Risk Protein [Mass/Vol] 7.0 g/dL 6.4-8.2 [facility] Triglyceride [Mass/Vol] 144 mg/dL <199 [facility] Comment on above: The drugs N-Acetylcy steine and Metamizole may falsely depress this assay.Serum Triglycerides Reference Interval Normal <150 mg/dL Borderline high 150 - 199 mg/dL High 200 - 499 mg/dL Very High > or = 500 mg/dL Direct bilirubinOrdered By: Aura Butts on 09-19-2022 Bilirubin.direct [Mass/Vol] 0.15 mg/dL 0.00-0.30 [facility] Laboratory - Chemistry and C hemistry - challengeOrdered By: Aura Butts on 09-19-2022 ALP [Catalytic activity/Vol] 55 U/L 45-117 [facility] ALT [Catalytic activity/Vol] 38 U/L 16-61 [facility] Globulin (S) [Mass/Vol] 3.3 g/dL 2.2-4.2 [facility] Serum or plasma albumin yves urement (mass/volume)Ordered By: Aura Butts on 09-19-2022 Albumin [Mass/Vol] 3.7 g/dL 3.2-5.0 [facility] Serum or plasma cholesterol in HDL measurement (mass/volume)Ordered By: Aura Butts on 09-19-2022 Cholesterol in HDL [Mass/Vol] 39 mg/dL >40 [facility] Comment on above: The drugs N-Acetylcy steine and Metamizole may falsely depress this assay. Reference Range HDL <40 mg/dL Low HDL Cholesterol HDL >or= 60 mg/dL High HDL Cholesterol Serum or plasma cholesterol in VLDL measurement (mass/volume)Ordered By: Aura Butts on 09-19-2022 Cholesterol in VLDL [Mass/Vol] 29 mg/dL 5-40 [facility] Serum or plasma low density lipoprotein (LDL) cholesterol measurement (mass/volume)Ordered By: Aura Butts on 09-19-2022 Cholesterol in LDL [Mass/Vol] 68 mg/dL 0-130 [facility] Thin prep Papanicolaou smear with manual screeningOrdered By: Aura Butts on 09-19-2022 Thin prep Papanicolaou smear with manual screening 32 U/L 15-37 [facility] Absolute lymphocyte countOrd ered By: Dr. Estrella on 05-23-2022 Lymphocytes Auto (Unsp spec) [#/Vol] 0.94 10*3/uL 0.83-4.51 [facility] Basophil percentageOrdered B y: Dr. Estrella on 05-23-2022 Basophils/100 WBC (Bld) 0.3 % 0-1 [facility] Eosinophils/100 WBC (Bld) 1.3 % 0-5 [facility] Neutrophils (Bld) [#/Vol] 4.9 10*3/uL 2.0-7.7 [facility] Neutrophils/100 WBC (Bld) 76.0 % 47-70 [facility] WBC (Bld) [#/Vol] 6.4 10*3/uL 4.4-11.0 [facility] Blood erythrocytes count (nu mber/volume)Ordered By: Dr. Estrella on 05-23-2022 RBC (Bld) [#/Vol] 4.77 10*6/uL 4.6-6.2 [facility] Blood hemoglobin measurement (mass/volume)Ordered By: Dr. Estrella on 05-23-2022 Hemoglobin (Bld) [Mass/Vol] 13.5 g/dL 13.0-16.5 [facility] Blood lymphocytes/100 leukoc ytesOrdered By: Dr. Estrella on 05-23-2022 Lymphocytes/100 WBC (Bld) 14.8 % 19-41 [facility] Blood monocytes/100 leukocyt esOrdered By: Dr. Estrella on 05-23-2022 Monocytes/100 WBC (Bld) 7.4 % 0-10 [facility] Blood platelet mean volumeOr dered By: Dr. Estrella on 05-23-2022 Platelet mean volume (Bld) [Entitic vol] 11.5 fL 6.2-12.0 [facility] Determination of erythrocyte mean corpuscular volume (MCV)Ordered By: Dr. Estrella on 05-23-2022 MCV (RBC) [Entitic vol] 85.5 fL 80-94 [facility] Erythrocyte sedimentation ra teOrdered By: Dr. Estrella on 05-23-2022 ESR (Bld) [Velocity] 37 mm/h 0-20 [facility] Hematocrit Auto (Bld) [Volum e fraction]Ordered By: Dr. Estrella on 05-23-2022 Hematocrit (Bld) [Volume fraction] 40.8 % 40-54 [facility] Laboratory - Hematology and Cell countsOrdered By: Dr. Estrella on 05-23-2022 Erythrocyte distribution width (RBC) [Entitic vol] 39.7 fL 35.1-43.9 [facility] Erythrocyte distribution width (RBC) [Ratio] 12.7 % 11.6-14.6 [facility] Immature granulocytes/100 WBC (Bld) 0.200 % 0.0-0.9 [facility] Comment on above: IG% - Immature Granu locytes (promyelocytes, myelocytes and metamyelocytes) > 1% indicates that a LEFT SHIFT is Present. MCH (RBC) [Entitic mass] 28.3 pg 27.0-32.0 [facility] Nucleated RBC/100 WBC (Bld) [Ratio] 0 % 0-5 [facility] MCHC Auto (RBC) [Mass/Vol]Or dered By: Dr. Estrella on 05-23-2022 MCHC (RBC) [Mass/Vol] 33.1 g/dL 32-36 [facility] No Panel InformationOrdered By: Dr. Estrella on 05-23-2022 Anti-Nuclear Antibody Screen Negative Negative [facility] Comment on above: Performed at: [address] Director: Valeriano Bowden PhD, Phone: [phone] Platelets bldOrdered By: Dr. Estrella on 05-23-2022 Platelets (Bld) [#/Vol] 183 10*3/uL 150-450 [facility] Serum or plasma C reactive p rotein measurement (mass/volume)Ordered By: Dr. Estrella on 05-23-2022 CRP [Mass/Vol] 62.00 mg/L 0.0-3.0 [facility] Comment on above: C-Reactive Protein ( CRP) provides useful information for thediagnosis, therapy and monitoring of inflammatory processesand associated diseases. For the evaluation of Relative Riskfor Cardiovascular Disease, a High Sensitivity CRP (HSCRP)should be ordered. Serum or plasma uric acid me asurement (mass/volume)Ordered By: Dr. Estrella on 05-23-2022 Urate [Mass/Vol] 4.2 mg/dL 3.5-7.2 [facility] Comment on above: The drugs N-Acetylcy steine and Metamizole may falsely depress this assay. Serum rheumatoid factor dete ctionOrdered By: Dr. Estrella on 05-23-2022 Rheumatoid factor Ql (S) < 10.0 IU/mL <15 [facility] Basophil percentageon 2021 Chloride [Moles/Vol] 107 mmol/L 98-[address] [facility] Work Phone: Cholesterol [Mass/Vol] 132 mg/dL <200 [facility] Work Phone: Comment on above: <200 mg/dL Desirable 200-240 mg/dL Borderline >240 mg/dL High Risk Glucose [Mass/Vol] 114 mg/dL 74-106 [facility] Work Phone: Comment on above: Fasting Glucose resu lt from 100 to 125 mg/dL suggests IMPAIRED HOMEOSTASIS per A.D.A. criteria. Potassium [Moles/Vol] 4.0 mmol/L 3.5-5.1 [facility] Work Phone: Sodium [Moles/Vol] 141 mmol/L 136-145 [facility] Work Phone: [phone] Triglyceride [Mass/Vol] 153 mg/dL <199 [facility] Work Phone: [phone] Comment on above: The drugs N-Acetylcy steine and Metamizole may falsely depress this assay.Serum Triglycerides Reference Interval Normal <150 mg/dL Borderline high 150 - 199 mg/dL High 200 - 499 mg/dL Very High > or = 500 mg/dL Laboratory - Chemistry and C hemistry - challengeon 01-24-2022 ALT [Catalytic activity/Vol] 24 U/L 16-61 [facility] Work Phone: CO2 [Moles/Vol] 29.0 mmol/L 21.0-32.0 [facility] Work Phone: [phone] Urea nitrogen/Creatinine [Mass ratio] 25.2 mg/mg 10-20 [facility] Work Phone: No Panel Informationon 01-24 Estimated GFR (MDRD) Amer 106 mL/min >60 [facility] Work Phone: Comment on above: GFR Calc Estimated GFR (MDRD) Non-Af Amer 87 mL/min >60 [facility] Work Phone: Comment on above: Non- GFR Calc Urine Microalbumin/Creatinine Ratio 7.3 mg/g CRE <30 [facility] Work Phone: [phone] Serum or plasma calcium yves urement (mass/volume)on 01-24-2022 Calcium [Mass/Vol] 9.2 mg/dL 8.5-10.1 [facility] Work Phone: [phone] Serum or plasma cholesterol in HDL measurement (mass/volume)on 01-24-2022 Cholesterol in HDL [Mass/Vol] 33 mg/dL >40 [facility] Work Phone: Comment on above: The drugs N-Acetylcy steine and Metamizole may falsely depress this assay. Reference Range HDL <40 mg/dL Low HDL Cholesterol HDL >or= 60 mg/dL High HDL Cholesterol Serum or plasma cholesterol in VLDL measurement (mass/volume)on 01-24-2022 Cholesterol in VLDL [Mass/Vol] 31 mg/dL 5-40 [facility] Work Phone: [phone] Serum or plasma creatinine m easurement (mass/volume)on 01-24-2022 Creatinine [Mass/Vol] 0.91 mg/dL 0.70-1.30 [facility] Work Phone: Comment on above: The validity of the calculated GFR & GFRAA in patients over 70 years has not been determined. Clinical correlation is essential. Serum or plasma low density lipoprotein (LDL) cholesterol measurement (mass/volume)on 01-24-2022 Cholesterol in LDL [Mass/Vol] 68 mg/dL 0-130 [facility] Work Phone: [phone] Serum or plasma urea nitroge n measurement (mass/volume)on 01-24-2022 Urea nitrogen [Mass/Vol] 23 mg/dL 7-18 [facility] Work Phone: [phone] Thin prep Papanicolaou smear with manual screeningon 01-24-2022 Thin prep Papanicolaou smear with manual screening 18 U/L 15-37 [facility] Work Phone: [phone] Thin prep Papanicolaou smear with manual screening 5 5-15 [facility] Work Phone: [phone] Thin prep Papanicolaou smear with manual screening 13.2 mg/L NO RANGE EST. [facility] Work Phone: [phone] Urine creatinine measurement (mass/volume)on 01-24-2022 Creatinine (U) [Mass/Vol] 182.00 mg/dL NO RANGE EST. [facility] Work Phone: [phone] Absolute lymphocyte counton 05-03-2021 Lymphocytes Auto (Unsp spec) [#/Vol] 1.24 10*3/uL 0.83-4.51 [facility] Work Phone: Basophil percentageon 2021 Basophils/100 WBC (Bld) 0.6 % 0-1 [facility] Work Phone: Bilirubin [Mass/Vol] 0.30 mg/dL 0.20-1.00 [facility] Work Phone: Comment on above: For patients on eltr ombopag therapy, use of Dimension Mckenzie TBIL is not recommended. Chloride [Moles/Vol] 106 mmol/L 98-107 [facility] Work Phone: Eosinophils/100 WBC (Bld) 3.0 % 0-5 [facility] Work Phone: Glucose [Mass/Vol] 98 mg/dL 74-106 [facility] Work Phone: Neutrophils (Bld) [#/Vol] 3.5 10*3/uL 2.0-7.7 [facility] Work Phone: Neutrophils/100 WBC (Bld) 64.8 % 47-70 [facility] Work Phone: Potassium [Moles/Vol] 4.4 mmol/L 3.5-5.1 [facility] Work Phone: Protein [Mass/Vol] 6.9 g/dL 6.4-8.2 [facility] Work Phone: Sodium [Moles/Vol] 140 mmol/L 136-145 [facility] Work Phone: WBC (Bld) [#/Vol] 5.3 10*3/uL 4.4-11.0 [facility] Work Phone: Blood erythrocytes count (nu mber/volume)on 05-03-2021 RBC (Bld) [#/Vol] 5.20 10*6/uL 4.6-6.2 [facility] Work Phone: Blood hemoglobin measurement (mass/volume)on 05-03-2021 Hemoglobin (Bld) [Mass/Vol] 15.0 g/dL 13.0-16.5 [facility] Work Phone: Blood lymphocytes/100 leukoc yteson 05-03-2021 Lymphocytes/100 WBC (Bld) 23.3 % 19-41 [facility] Work Phone: Blood monocytes/100 leukocyt eson 05-03-2021 Monocytes/100 WBC (Bld) 7.9 % 0-10 [facility] Work Phone: Blood platelet mean volumeon 05-03-2021 Platelet mean volume (Bld) [Entitic vol] 11.6 fL 6.2-12.0 [facility] Work Phone: Determination of erythrocyte mean corpuscular volume (MCV)on 05-03-2021 MCV (RBC) [Entitic vol] 85.2 fL 80-94 [facility] Work Phone: Hematocrit Auto (Bld) [Volum e fraction]on 05-03-2021 Hematocrit (Bld) [Volume fraction] 44.3 % 40-54 [facility] Work Phone: Laboratory - Chemistry and C hemistry - challengeon 05-03-2021 ALP [Catalytic activity/Vol] 68 U/L 45-117 [facility] Work Phone: ALT [Catalytic activity/Vol] 33 U/L 16-61 [facility] Work Phone: CO2 [Moles/Vol] 27.0 mmol/L 21.0-32.0 [facility] Work Phone: Globulin (S) [Mass/Vol] 3.2 g/dL 2.2-4.2 [facility] Work Phone: [phone] Urea nitrogen/Creatinine [Mass ratio] 29.0 mg/mg 10-20 [facility] Work Phone: Laboratory - Hematology and Cell countson 05-03-2021 Erythrocyte distribution width (RBC) [Entitic vol] 41.1 fL 35.1-43.9 [facility] Work Phone: Erythrocyte distribution width (RBC) [Ratio] 13.3 % 11.6-14.6 [facility] Work Phone: Immature granulocytes/100 WBC (Bld) 0.400 % 0.0-0.9 [facility] Work Phone: [phone] Comment on above: IG% - Immature Granu locytes (promyelocytes, myelocytes and metamyelocytes) > 1% indicates that a LEFT SHIFT is Present. MCH (RBC) [Entitic mass] 28.8 pg 27.0-32.0 [facility] Work Phone: Nucleated RBC/100 WBC (Bld) [Ratio] 0 % 0-5 [facility] Work Phone: [phone] MCHC Auto (RBC) [Mass/Vol]on 05-03-2021 MCHC (RBC) [Mass/Vol] 33.9 g/dL 32-36 [facility] Work Phone: No Panel Informationon 05-03 Estimated GFR (MDRD) Amer 124 mL/min >60 [facility] Work Phone: Comment on above: GFR Calc Estimated GFR (MDRD) Non-Af Amer 103 mL/min >60 [facility] Work Phone: Comment on above: Non- GFR Calc Thyroid Stimulating Hormone (TSH) 0.99 uIU/mL 0.358-3.74 [facility] Work Phone: Platelets bldon 05-03-2021 Platelets (Bld) [#/Vol] 158 10*3/uL 150-450 [facility] Work Phone: [phone] Serum or plasma albumin yves urement (mass/volume)on 05-03-2021 Albumin [Mass/Vol] 3.7 g/dL 3.2-5.0 [facility] Work Phone: Serum or plasma albumin/glob ulin mass ratioon 05-03-2021 Albumin/Globulin [Mass ratio] 1.2 {ratio} 0.9-2.4 [facility] Work Phone: [phone] Serum or plasma calcium yves urement (mass/volume)on 05-03-2021 Calcium [Mass/Vol] 8.6 mg/dL 8.5-10.1 [facility] Work Phone: Serum or plasma creatinine m easurement (mass/volume)on 05-03-2021 Creatinine [Mass/Vol] 0.79 mg/dL 0.70-1.30 [facility] Work Phone: Comment on above: The validity of the calculated GFR & GFRAA in patients over 70 years has not been determined. Clinical correlation is essential. Serum or plasma urea nitroge n measurement (mass/volume)on 05-03-2021 Urea nitrogen [Mass/Vol] 23 mg/dL 7-18 [facility] Work Phone: Thin prep Papanicolaou smear with manual screeningon 05-03-2021 Thin prep Papanicolaou smear with manual screening 25 U/L 15-37 [facility] Work Phone: Thin prep Papanicolaou smear with manual screening 7 5-15 [facility] Work Phone: Vital Signs Date Time Vital Sign Value Performing Clinician Faci lity 10-20-2024 14:15-0400 Body height 177.[address] Flaca Estrella MD Work Phone: [facility] 10-20-2024 14:15-0400 Body mass index (BMI) [Ratio] 27.7 kg/m2 Dr. Flaca Estrella MD Work Phone: [facility] 10-20-2024 14:15-0400 Body temperature 98.6 [degF] Dr. Flaca Estrella MD Work Phone: [facility] 10-20-2024 14:15-0400 Body weight 87.[address] Flaca Estrella MD Work Phone: [facility] 10-20-2024 14:15-0400 Diastolic blood pressure 96 mm[Hg] Dr. Flaca Estrella MD Work Phone: [facility] 10-20-2024 14:15-0400 Heart rate 82 /min Dr. Flaca Estrella MD Work Phone: [facility] 10-20-2024 14:15-0400 Respiratory rate 16 /min Dr. Flaca Estrella MD Work Phone: [phone] [place] [address] 10-20-2024 14:15-0400 SaO2% (BldA) [Mass fraction] 95 % Dr. Flaca Estrella MD Work Phone: [phone] [place] [address] 10-20-2024 14:15-0400 Systolic blood pressure 153 mm[Hg] Dr. Flaca Estrella MD Work Phone: [phone])[phone] [place] [address] 07-02-2024 16:32-0400 Body temperature 98.9 [degF] Dr. Flaca Estrella MD Work Phone: 3(848)851-505002 [place] [address] 07-02-2024 16:32-0400 Diastolic blood pressure 79 mm[Hg] Dr. Flaca Estrella MD Work Phone: 3(324)979-374402 [place] [address] 07-02-2024 16:32-0400 Heart rate 78 /min Dr. Flaca Estrella MD Work Phone: 9(468)035-081802 [place] [address] 07-02-2024 16:32-0400 Respiratory rate 16 /min Dr. Flaca Estrella MD Work Phone: 4(263)617-371302 [place] [address] 07-02-2024 16:32-0400 SaO2% (BldA) [Mass fraction] 91 % Dr. Flaca Estrella MD Work Phone: 6(372)574-050621 [place] [address] 07-02-2024 16:32-0400 Systolic blood pressure 156 mm[Hg] Dr. Flaca Estrella MD Work Phone: 7(376)353-270102 [place] [address] 07-02-2024 13:15-0400 Inhaled oxygen flow rate 2 L/min Dr. Flaca Estrella MD Work Phone: 3(208)996-827002 [place] [address] 07-02-2024 06:00-0400 Body height 177.[address] Flaca Estrella MD Work Phone: 0(213)250-689102 [place] [address] 07-02-2024 06:00-0400 Body mass index (BMI) [Ratio] 27.2 kg/m2 Dr. Flaca Estrella MD Work Phone: [facility] 07-02-2024 06:00-0400 Body weight 86.[address] Flaca Estrella MD Work Phone: [phone])838-135003 [address] 03-31-2024 09:35-0500 Body mass index (BMI) [Ratio] 27.8 kg/m2 Dr. Flaca Estrella MD Work Phone: 5(411)479-390121 [place] [address] 03-31-2024 09:35-0500 Body weight 87.[address] Flaca Estrella MD Work Phone: 3(087)202-474202 [place] [address] 03-31-2024 09:35-0500 Diastolic blood pressure 91 mm[Hg] Dr. Flaca Estrella MD Work Phone: 3(946)192-043002 [place] [address] 03-31-2024 09:35-0500 Heart rate 60 /min Dr. Flaca Estrella MD Work Phone: 3(222)988-099102 [place] [address] 03-31-2024 09:35-0500 Respiratory rate 16 /min Dr. Flaca Estrella MD Work Phone: 1(141)608-801603 [address] 03-31-2024 09:35-0500 Systolic blood pressure 139 mm[Hg] Dr. Flaca Estrella MD Work Phone: 4(599)633-916821 [place] [address] 03-30-2024 07:47-0500 Body mass index (BMI) [Ratio] 27.8 kg/m2 Dr. Flaca Estrella MD Work Phone: 9(686)326-416221 [place] [address] 03-30-2024 07:47-0500 Body temperature 97.6 [degF] Dr. Flaca Estrella MD Work Phone: 2(338)950-886403 [address] 03-30-2024 07:47-0500 Body weight 88.[address] Flaca Estrella MD Work Phone: 5(691)455-535902 [place] [address] 03-30-2024 07:47-0500 Diastolic blood pressure 94 mm[Hg] Dr. Flaca Estrella MD Work Phone: 2(575)024-957821 [place] [address] 03-30-2024 07:47-0500 Heart rate 61 /min Dr. Flaca Estrella MD Work Phone: [facility] 03-30-2024 07:47-0500 Respiratory rate 18 /min Dr. Flaca Estrella MD Work Phone: [facility] 03-30-2024 07:47-0500 SaO2% (BldA) [Mass fraction] 95 % Dr. Flaca Estrella MD Work Phone: 0(441)958-589221 [place] [address] 03-30-2024 07:47-0500 Systolic blood pressure 149 mm[Hg] Dr. Flaca Estrella MD Work Phone: 7(954)382-334002 [place] [address] 03-26-2024 09:11-0500 Body mass index (BMI) [Ratio] 27.9 kg/m2 Dr. Flaca Estrella MD Work Phone: 1(252)728-908302 [place] [address] 03-26-2024 09:11-0500 Body temperature 98 [degF] Dr. Flaca Estrella MD Work Phone: 5(303)908-400502 [place] [address] 03-26-2024 09:11-0500 Body weight 88.[address] Flaca Estrella MD Work Phone: 2(947)432-402802 [place] [address] 03-26-2024 09:11-0500 Diastolic blood pressure 86 mm[Hg] Dr. Flaca Estrella MD Work Phone: 8(883)213-754002 [place] [address] 03-26-2024 09:11-0500 Heart rate 53 /min Dr. Flaca Estrella MD Work Phone: 1(613)157-342703 [address] 03-26-2024 09:11-0500 Respiratory rate 18 /min Dr. Flaca Estrella MD Work Phone: 4(271)114-822003 [address] 03-26-2024 09:11-0500 SaO2% (BldA) [Mass fraction] 96 % Dr. Flaca Estrella MD Work Phone: 9(569)448-886821 [place] [address] 03-26-2024 09:11-0500 Systolic blood pressure 148 mm[Hg] Dr. Flaca Estrella MD Work Phone: 8(920)147-796003 [address] 01-22-2023 14:21-0500 Diastolic blood pressure 78 mm[Hg] Dr. Flaca Estrella Work Phone: [facility] 01-22-2023 14:21-0500 Systolic blood pressure 128 mm[Hg] Dr. Flaca Estrella Work Phone: [facility] 01-22-2023 13:40-0500 Body height 177.[address] Flaca Estrella Work [facility] [place] 01-22-2023 13:40-0500 Body mass index (BMI) [Ratio] 27.8 kg/m2 Dr. Flaca Estrella Work Phone: [facility] 01-22-2023 13:40-0500 Body weight 87.[address] Flaca Estrella Work Phone: [facility] 01-22-2023 13:40-0500 Heart rate 69 /min Dr. Flaca Estrella Work Phone: [facility] 01-22-2023 13:40-0500 Respiratory rate 18 /min Dr. Flaca Estrella Work Phone: [facility] 01-22-2023 13:40-0500 SaO2% (BldA) [Mass fraction] 96 % Dr. Flaca sEtrella Work Phone: [facility] 09-19-2022 14:14-0400 Body height 177.[address] Flaca Estrella Work Phone: [facility] 09-19-2022 14:14-0400 Body mass index (BMI) [Ratio] 26.9 kg/m2 Dr. Flaca Estrella Work Phone: [facility] 09-19-2022 14:14-0400 Body weight 85.[address] Flaca Estrella Work Phone: [facility] 09-19-2022 14:14-0400 Diastolic blood pressure 86 mm[Hg] Dr. Flaca Estrella Work Phone: [facility] 09-19-2022 14:14-0400 Heart rate 65 /min Dr. Flaca Estrella Work Phone: [facility] 09-19-2022 14:14-0400 Respiratory rate 18 /min Dr. Flaca Estrella Work Phone: [facility] 09-19-2022 14:14-0400 SaO2% (BldA) [Mass fraction] 94 % Dr. Flaca Estrella Work Phone: [facility] 09-19-2022 14:14-0400 Systolic blood pressure 128 mm[Hg] Dr. Flaca Estrella Work Phone: [facility] 01-25-2022 09:10-0500 Body height 177.[address] Flaca Estrella Work Phone: [facility] Work Phone: 01-25-2022 09:10-0500 Body mass index (BMI) [Ratio] 26.9 kg/m2 Dr. Flaca Estrella Work Phone: [facility] Work Phone: 01-25-2022 09:10-0500 Body weight 85.[address] Flaca Estrella Work Phone: [facility] Work Phone: 01-25-2022 09:10-0500 Diastolic blood pressure 74 mm[Hg] Dr. Flaca Estrella Work Phone: [facility] Work Phone: 01-25-2022 09:10-0500 Heart rate 81 /min Dr. Flaca Estrella Work Phone: [facility] Work Phone: 01-25-2022 09:10-0500 Respiratory rate 18 /min Dr. Flaca Estrella Work Phone: [facility] Work Phone: 01-25-2022 09:10-0500 SaO2% (BldA) [Mass fraction] 97 % Dr. Flaca Estrella Work Phone: [facility] Work Phone: 01-25-2022 09:10-0500 Systolic blood pressure 137 mm[Hg] Dr. Flaca Estrella Work Phone: [facility] Work Phone: 07-28-2021 13:01-0400 Body height 177.[address] Flaca Estrella Work Phone: [facility] Work Phone: 07-28-2021 13:01-0400 Body mass index (BMI) [Ratio] 26.9 kg/m2 Dr. Flaca Estrella Work Phone: [facility] Work Phone: 07-28-2021 13:01-0400 Body weight 84.[address] Flaca Estrella Work Phone: [facility] Work Phone: 07-28-2021 13:01-0400 Diastolic blood pressure 72 mm[Hg] Dr. Flaca Estrella Work Phone: [facility] Work Phone: 07-28-2021 13:01-0400 Heart rate 64 /min Dr. Flaca Estrella Work Phone: [facility] Work Phone: 07-28-2021 13:01-0400 Respiratory rate 16 /min Dr. Flaca Estrella Work Phone: [facility] Work Phone: 07-28-2021 13:01-0400 Systolic blood pressure 138 mm[Hg] Dr. Flaca Estrella Work Phone: [facility] Work Phone: Encounters Encounter Date Encounter Type Care Provider Facility Start: 11-11-2024 ambulatory Davie Dorado lity:[facility] Start: 11-03-2024 ambulatory Vickey Logan Facility: [facility] Start: 10-29-2024 ambulatory Muriel Ibrahim Facility :[facility] Start: 10-20-2024 End: 10-20-[address] Vickey Logan DO -[facility] Work Phone: Start: 10-20-2024 End: 10-20-[address] Flaca Estrella MD Work Phone: -[facility] Start: 10-01-2024 End: 10-01-[address] Flaca Estrella MD Work Phone: -Laboratory Specimen Start: 10-01-2024 End: 10-01-[address] Davie Isabel MD -Laboratory Specimen Work Phone: Start: 10-01-2024 End: 10-01-2024 ambulatory Davie Isabel Facility:[facility] Start: 09-02-2024 End: 09-02-[address] Flaca Estrella MD Work Phone: [facility] Work Phone: Start: 09-02-2024 End: 09-02-[address] Davie Isabel MD -[facility] Work Phone: Start: 09-02-2024 End: 09-02-2024 ambulatory Davie Isabel Facility:[facility] Start: 08-18-2024 End: 08-18-[address] Flaca Estrella MD Work Phone: [facility] Work Phone: Start: 08-18-2024 End: 08-18-2024 Patient encounter procedure Cindy Forrest -Laboratory Work Phone: Start: 08-18-2024 End: 08-18-2024 ambulatory Cindy Herron Facility:[facility] Start: 08-12-2024 End: 08-12-[address] Khoa Gonzalez MD -[facility] Work Phone: Start: 08-12-2024 End: 08-12-[address] Flaca Estrella MD Work Phone: [facility] Work Phone: Start: 07-27-2024 End: 07-27-[address] Flaca Estrella MD Work Phone: [facility] Work Phone: Start: 07-27-2024 End: 07-27-2024 Patient encounter procedure Mustapha Paynerd INDUSTRIAL MACHINE OPERATOR-C -Laboratory [facility] Start: 07-27-2024 End: 07-27-2024 ambulatory Mustapha Henrietta INDUSTRIAL MACHINE OPERATOR Facility:[facility] Start: 07-10-2024 Encounter for other preprocedural examination Khoa Gonzalez [facility] Start: 07-09-2024 End: 07-09-2024 Patient encounter procedure Lashonda Bojorquez PA-C -[facility] Work Phone: Start: 07-09-2024 End: 07-09-2024 ambulatory Flaca Estrella Facility:[facility] Start: 07-02-2024 ambulatory Khoa Gonzalez Facility: [facility] Start: 07-02-2024 Non-patient / Non-visit Dr. Khoa Gonzalez MD -[facility] Start: 07-02-2024 End: 07-02-2024 Admission to same day surgery center Dr. Khoa Gonzalez MD -[facility] Start: 07-02-2024 End: 07-02-[address] Flaca Estrella MD Work Phone: [facility] Work Phone: Start: 03-31-2024 End: 03-31-[address] Raymundo Canada MD -[facility] Work Phone: Start: 03-31-2024 End: 03-31-2024 ambulatory Flaca Estrella Facility:[facility] Start: 03-30-2024 End: 03-30-[address] Khoa Gonzalez MD -[facility] Work Phone: Start: 03-30-2024 End: 03-30-2024 ambulatory Khoa Gonzalez Facility:[facility] Start: 03-26-2024 End: 03-26-[address] Palmer Machuca MD -[facility] Work Phone: Start: 03-26-2024 End: 03-26-2024 ambulatory Palmer Machuca Facility:[facility] Start: 01-23-2024 End: 01-23-2024 ambulatory Flaca Estrella Facility:[facility] Start: 01-20-2024 End: 01-20-2024 ambulatory Flaca S Sameer Facility:[facility] Start: 01-03-2024 End: 01-03-2024 ambulatory Flaca S Jolliff Facility:[facility] Start: 12-24-2023 End: 12-24-2023 ambulatory Flaca S Sameer Facility:[facility] Start: 12-10-2023 End: 12-10-2023 ambulatory Flaca S Sameer Facility:[facility] Start: 11-25-2023 ambulatory Khoa Gonzalez Facility: [facility] Start: 11-25-2023 End: 11-25-2023 ambulatory Khoa Gonzalez Facility:[facility] Start: 11-12-2023 End: 11-12-2023 ambulatory Khoa Gonzalez Facility:[facility] Start: 07-31-2023 End: 07-31-2023 Emergency department patient visit FLACA ESTRELLA [facility] Start: 01-22-2023 End: 01-22-[address] Flaca Estrella Work Phone: [facility] Work Phone: Start: 01-18-2023 End: 01-18-[address] Flaca Estrella Work Phone: [facility] Work Phone: Start: 01-18-2023 End: 01-18-[address] Flaca Estrella Work Phone: [facility] Start: 09-19-2022 End: 09-19-[address] Flaca Estrella Work Phone: [facility] Work Phone: Start: 09-19-2022 End: 09-19-[address] Flaca Estrella Work Phone: [facility] Work Phone: Start: 06-19-2022 End: 06-19-2022 ambulatory [facility] Work Phone: Start: 06-19-2022 End: 06-19-2022 Patient encounter procedure [facility] Start: 05-23-2022 End: 05-23-2022 ambulatory [facility] Work Phone: Start: 05-23-2022 End: 05-23-2022 Patient encounter procedure [facility] Start: 01-25-2022 End: 01-25-[address] Flaca Estrella Work Phone: [facility] Start: 01-24-2022 End: 01-24-[address] Flaca Estrella Work Phone: [facility] Work Phone: Start: 01-24-2022 End: 01-24-[address] Flaca Estrella Work Phone: [facility] Start: 08-24-2021 Non-patient / Non-visit Dr. Dwaine Estrella Work Phone: [facility] Start: 08-24-2021 End: 08-24-[address] Flaca Estrella Work Phone: [facility] Start: 07-28-[address] [place] Estrella Work Phone: [facility] Start: 07-28-2021 End: 07-28-2021 Admission to same day surgery center Dr. Flaca Estrella Work Phone: [facility] Start: 07-28-2021 End: 07-28-[address] Flaca Estrella Work Phone: [facility] Start: 07-27-2021 Non-patient / Non-visit Dr. Dwaine Estrella Work Phone: [facility] Start: 07-27-2021 Non-patient / Non-visit Dr. Dwaine Estrella Work Phone: [facility] Start: 05-03-2021 End: 05-03-[address] Flaca Estrella Work Phone: [facility] Procedures Date Procedure Procedure Detail Performing Clinician Start: 09-02-2024 MRI of pelvis with contrast Dr. Flaca Estrella MD Work Phone: Start: 08-18-2024 Free prostate specif ic antigen level Dr. Flaca Estrella MD Work Phone: Comment on above: Gene E[employer]IA methodol ogy. Start: 08-18-2024 Prostate specific an tigen measurement Dr. Flaca Estrella MD Work Phone: Comment on above: Gene ECLIA methodol ogy.According to the [employer], Serum PSAshould decrease and remain at undetectable levels afterradical prostatectomy. The AUA defines biochemicalrecurrence as an initial PSA value 0.200 ng/mL or greaterfollowed by a subsequent confirmatory PSA value 0.200 ng/mLor greater. Values obtained with different assay methods orkits cannot be used interchangeably. Results cannot beinterpreted as absolute evidence of the presence or absenceof malignant disease. Start: 07-27-2024 Prostate specific an tigen measurement Dr. Flaca Estrella MD Work Phone: Comment on above: This test was perfor med using the [employer] tPSA method. Measured values of a patient sample can vary depending on the testing procedure used. PSA values determined on patient samples by different testing procedures cannot be used interchangeably. If there is a change in PSA assays while monitoring therapy, sequential testing should be performed to confirm baseline values. Start: 07-02-2024 Lap Robotic Inguinal Hernia (Bilateral) Dr. Flaca Estrella MD Work Phone: Start: 06-19-2022 Radiologic examination of knee Start: 08-24-2021 Radionuclide imaging of perfusion of myocardium under exercise stress Dr. Flaca Estrella Work Phone: Start: 05-16-2016 History of coronary artery bypass grafting History of coronary artery bypass surgery Dr. Raymundo Canada MD Comment on above: CABG x6- WHITE to LAD , SVG to RI, SVG to OM1, SVG to OM2, SVG to OM3, SVG to endarterectomized PDA 06/15/16 @ [facility] History of repair of inguinal hernia S/P inguinal hernia repair Lashonda Bojorquez PA-C Comment on above: Bilateral inguinal r epair Bilateral inguinal r epair 07/02/2024. Patient has recovered well. No signs of recurrence. Recommend return to activities in a gradual fashion. Examples of gradual return are given but patient has history of umbilical hernia repair and return to activity successfully. He states he plans to near this recovery after that prior experience. Regarding his question about possible PSA elevation. I suggested there could be a possible connection if the surgery had led to any level of prostatitis but I thought this was unlikely. An independent review of the literature there does not appear to be any documented cases where the 2 are directly linked. Therefore, I would suspect they are random, unrelated to events. History of repair of inguinal hernia S/P inguinal hernia repair Dr. Khoa Gonzalez MD Plan of Treatment Date Care Activity Detail Author Start: 07-02-2024 Anesthesia intraperi toneal lower abd w/laps nos ANESTH SURG LOWER ABDOMEN [facility] Start: 07-02-2024 Laps surg rpr recurr ent inguinal hernia LAP ING HERNIA REPAIR RECUR [facility] Start: 07-02-2024 Patient discharge [facility] Patient referral [facility] Work Phone: Positron emission to mography with computed tomography [facility] Payers Date Payer Category Payer Self-pay [id number] 2020 Medicare [id number] 1950 Unknown [id number] 2.16.8 [id number] Medicare [id number] Medicare [id number] Unknown [id number] Unknown [id number] 2.16.8 40.1.327206.3.579.2.462 Unknown [id number] 2.16.8 40.1.832161.3.579.2.462 Unknown [id number] 2.16.8 40.1.990000.3.579.2.462 Unknown [id number] 2.16.8 40.1.227394.3.579.2.462 Unknown [id number] 2.16.8 40.1.770808.3.579.2.462 Unknown [id number] 2.16.8 40.1.048219.3.579.2.462 Unknown [id number] 2.16.8 40.1.551938.3.579.2.462 Unknown [id number] 2.16.8 40.1.767826.3.579.2.462 Unknown [id number] 2.16.8 40.1.019234.3.579.2.462 Unknown [id number] 2.16.8 40.1.503234.3.579.2.462 Unknown [id number] 2.16.8 40.1.738891.3.579.2.462 Unknown [id number] 2.16.8 40.1.485045.3.579.2.462 Unknown [id number] 2.16.8 40.1.495610.3.579.2.462 Unknown [id number] 2.16.8 40.1.229243.3.579.2.462 Unknown [id number] 2.16.8 40.1.047375.3.579.2.462 Unknown [id number] 2.16.8 40.1.127139.3.579.2.462 Unknown [id number] 2.16.8 40.1.194459.3.579.2.462 Unknown [id number] 2.16.8 40.1.504347.3.579.2.462 Unknown [id number] 2.16.8 40.1.279697.3.579.2.462 Unknown [id number] 2.16.8 40.1.284255.3.579.2.462 Unknown [id number] 2.16.8 40.1.830548.3.579.2.462 Unknown [id number] 2.16.8 40.1.696866.3.579.2.462 Unknown [id number] 2.16.8 40.1.569564.3.579.2.462 Unknown [id number] 2.16.8 40.1.053339.3.579.2.462 Unknown [id number] 2.16.8 40.1.006226.3.579.2.462 Unknown [id number] 2.16.8 40.1.629490.3.579.2.462 Unknown [id number] 2.16.8 40.1.072271.3.579.2.462 Unknown [id number] 2.16.8 40.1.020407.3.579.2.462 Unknown [id number] 2.16.8 40.1.056540.3.579.2.462 Social History Date Type Detail Facility Start: 07-28-2021 End: 01-22-2023 Tobacco smoking status ARIS Unknown if ever smoked [facility] Start: 1950 Sex Assigned At Male [facility] Start: 06-24-2024 End: 10-19-2024 Tobacco smoking status NHIS Ex-smoker (finding) [facility] Start: 07-02-2024 Sex Male (finding) [facility] Medical Equipment Procedure Code Equipment Code Equipment Origin al Text Equipment Identifier Dates ([id number]) Extra-gynaecolog ical surgical mesh, composite-polymer ([id number] FDA Start: 11-25-2023 MESH,3D MED WT L EFT LG FDA Start: 07-02-2024 MESH,3D MED WT R IGHT XL FDA Start: 07-02-2024 MESH,3D MED WT L EFT LG FDA Start: 07-02-2024 MESH,3D MED WT R IGHT XL FDA Start: 07-02-2024 MESH,3D MED WT L EFT LG FDA Start: 07-02-2024 MESH,3D MED WT R IGHT XL FDA Start: 07-02-2024 MESH,3D MED WT L EFT LG FDA Start: 07-02-2024 MESH,3D MED WT R IGHT XL FDA Start: 07-02-2024 MESH,3D MED WT L EFT LG FDA Start: 07-02-2024 MESH,3D MED WT R IGHT XL FDA Start: 07-02-2024 MESH,3D MED WT L EFT LG FDA Start: 07-02-2024 MESH,3D MED WT R IGHT XL FDA Start: 07-02-2024 Goals Date Patient Goal Desired Activity /State Mental Status Date Assessment Result Facility 07-02-2024 Cognitive function Voice/Name [facility] Work Phone: Clinical Notes 05-16-2016 to 10-20-2024 Note Date & Type Note Facility 10-20-2024 Progress note [facility] 10-20-2024 Progress note Note Date/Time October 20, 2024 3:32pm [facility] [address] [place] [id number] OFFICE VISIT Date of Service: 10/20/24 1415 MR#: [id number] Acct: [id number] Name: DUNCAN ANDERSON Rep #: [id number] : 1950 From: Vickey foley DO Age/Sex: 73/M [place] [facility] [place]: Signed Intake Vital Signs 07/02/24 06:00 10/20/24 14:15 Height 5 ft 10 in 5 ft 10 in Weight: 193 lb 7 oz BMI 27.7 BP 153/96 H Blood Pressure Location Lt brachial Position Sitting Respiration 16 Pulse 82 Pulse Source Monitor Temp 98.6 F Temperature Source Temporal Artery Pulse Oximetry (%) 95 Oxygen Delivery Method room air Intake Visit Reasons: PROSTATE CA Is patient in pain?: No Allergies ramipril (From Altace) Adverse Reaction (Unknown, Verified 07/09/24 13:11) GI Issues Iodinated Contrast Media (contrast dye - iodinated) Adverse Reaction (Verified 10/20/24 14:20) Hives Medications ?Medication ?Instructions ?Recorded ?Confirmed ?Type atorvastatin 40 mg tablet (Lipitor) 40 mg PO QHS 01/2210/19/24 History metoprolol tartrate 50 mg tablet 25 mg PO BID 01/22/23 10/19/24 History (Lopressor) amlodipine 2.5 mg tablet (Norvasc) 2.5 mg PO QHS #90 t abs 10/14/24 10/19/24 Rx Have you fallen in the past year?: No PFSH PFSH Medical History Family history of malignant neoplasm of prostate BPH with elevated PSA and lower urinary tract symptoms Loss of hearing Wears glasses Alcohol use Back pain Shortness of breath on exertion High cholesterol Heartburn Former smoker History of echocardiogram History of stress test Cardiology follow-up encounter Preoperative cardiovascular examination History of left heart catheterization (LHC) (~09/08/99) Paroxysmal atrial fibrillation Essential hypertension Pure hypercholesterolemia Atherosclerotic heart disease of [place] coronary artery without angina pectoris Incarcerated ventral hernia Screening for intestinal cancer Epigastric pain Hypercholesterolemia Hypertension Home Medications ?Medication ?Instructions ?Recorded ?Last Taken ?Type atorvastatin 40 mg tablet (Lipitor) 40 mg PO QHS 01/2207/01/24 History metoprolol tartrate 50 mg tablet 25 mg PO BID 01/22/23 07/02/24 04:00 History (Lopressor) amlodipine 2.5 mg tablet (Norvasc) 2.5 mg PO QHS #90 t abs 10/14/24 Unknown Rx Allergy/AdvReac Type Severity Reaction Status Date / Time ramipril (From Altace) AdvReac Unknown GI Issues Verified 07/09/24 13:11 Iodinated Contrast Media AdvReac Hives Verified 10/20/24 14:20 (contrast dye - iodinated) Family History Father Cancer Lung Mother Myocardial infarction, Onset Age: 93 Surgical History H/O prostate biopsy S/P inguinal hernia repair Hx of CABG Hx of umbilical hernia repair Hx of rhinoplasty History of shoulder surgery History of coronary artery bypass surgery (~06/15/16) History of angioplasty History of coronary artery stent placement History of bilateral inguinal hernia repair Social History Smoking Status: Former smoker how long ago did patient quit smoking: quit in 1979 alcohol intake: current alcohol intake frequency: holidays/special occasions only substance use type: does not use caffeine: Yes Type: coffee Number of servings: 2 additional social history: denies vaping, denies marijuana use denies edibles, uses aspirin daily, ibuprofen as needed no family history blood clotting disorder Referring Provider: Fabian Isabel MD Diagnosis: Duncan Anderson is a 73 year-old male diagnosed with high risk prostate cancer (PSA 6.16, GS 4+4, cT1c) status post MRI pelvis with and without contrast (09/02/2024), and TRUS guided prostate biopsy (10/02/2024). History of Present Illness: 09/02/2024: Patient completed MRI pelvis with and without contrast.? This demonstrated a heterogeneously enhancing nodule in the left lateral aspect of the peripheral zone extending from the 2:00 to the 5 o'clock position measuring 1.5 x 1.3 cm, no extension beyond the capsule.? PI-RADS category 4.? Seminal vesicles are slightly prominent. 10/02/2024: Patient completed TRUS guided prostate biopsy.? Pathology demonstrated Adams 4+4 adenocarcinoma involving about 80% of 1/1 core in the left prostate apex, Adams 3+3 adenocarcinoma involving about 10% of 1/1 core in the left prostate mid and about 30% of 1/1 core in the left prostate base.? Remaining biopsies were negative. Radiation Treatment History: No prior history of radiation therapy. No pacemaker. No diagnosis of radiosensitizing comorbidity. Interval History: Patient presents for initial consultation. He reports having PSAs drawn but he has not had one drawn for about 5 years and it was more elevated this year whichled to his diagnosis. He denies having any new symptoms. He reports very good urinary function and denies incomplete emptying, frequency, intermittency, urgency, weak stream, straining. He has nocturia about once per night. He doesreport having some reduced erectile function and is not very sexually active. He reports having regular bowel movements without constipation or diarrhea. He denies rectal pain or bleeding. He denies leakage or incontinence of stool or urine. He had a Cologuard test done a few years ago which he reports being normal. He has never had a colonoscopy. He denies cough, shortness of breath, chest pain, bone pain. Energy level has remained fairly normal and he denies unexpected weight loss. He does continue to work and stays relatively active inhis daily life. He completes all ADLs without any difficulty denies having other problems or concerns at this time. Review of Systems: A 12-point review of systems was completed and was negative except for what is noted in the HPI/Interval History and by the nurse. Physical Exam: Weight: 193 lbs 7 oz ECO KARNOFSKY SCORE: 70% CONSTITUTIONAL: Well-developed, well-nourished, and in no apparent distress. CARDIAC: Regular rate and rhythm. Normal S1, S2. No murmurs, rubs, or gallops. PULMONARY/CHEST: Lungs are clear to auscultation and percussion bilaterally. No wheezes, rhonchi, or crackles noted. No increased work of breathing. EXTREMITIES: Full range of motion in all four extremities. No evidence of edema. MAXIMILIANO: Deferred PSYCHIATRIC: Appropriate mood and affect for the clinical situation. Imaging: As per HPI Laboratory Data: PSA: 07/27/2024: 6.18 08/18/2024: 5.8 Assessment & Plan Assessment/Plan (1) Primary malignant neoplasm of prostate with high risk of recurrence due to Karon score of 8 to 10 and PSA greater than 20: PLAN: Plan Assessment: Duncan Anderson is a 73 year-old male diagnosed with high risk prostate cancer (PSA 6.16, GS 4+4, cT1c) status post MRI pelvis with and without contrast (09/02/2024), and TRUS guided prostate biopsy (10/02/2024). Plan: Patient presents for initial consultation. He does have a good performance status with few medical comorbidities. He continues to work and stays active athis daily life. I had a detailed discussion with the patient regarding the diagnosis of high-risk prostate adenocarcinoma and specifically reviewed the clinical and pathologic features about his cancer that make his disease high risk.? I reviewed his imaging studies which demonstrate a PIRADS 4 lesion in the prostate, discussed potential benefit of adding PSMA PET to evaluate for lymph node involvement or metastatic disease.? I reviewed potential treatment options with a focus on radiation therapy as well as long-term ADT. ?For radiation therapy I reviewed both definitive external beam radiation.? Specifically, for external beam radiation therapy I discussed that the use of moderate hypofractionation has been compared to conventional long course radiation in several trials and demonstrated equivalent disease results and very similar riskof toxicity, this has now been recognized as an acceptable treatment recommendation as published KATIE/ASCO/AUA consensus guideline.? I reviewed the use of fiducial markers to improve target localization during treatment and alsothe use of space OAR has been shown to improve risk of rectal toxicity.? Following placement of space OAR and fiducials I would recommend MRI for improved anatomical delineation for treatment planning.? He is interested in ADTand will start with urology.? He would also like genetics referral for discussion. I reviewed the logistics of radiation therapy including CT simulation, treatmentplanning, and daily fractionated radiation therapy.? I stressed the importance of coming to all treatments and to not unnecessarily prolong the treatment course.? I also reviewed recommendations of completing treatment with a full bladder as a strategy to improve normal tissue toxicity.? I reviewed the potential acute and chronic toxicities from prostate/pelvic radiation and these include but are not limited to fatigue, skin irritation, rectal irritation/discomfort, loose stool/diarrhea, urinary frequency/dysuria, rectal ulcer, pain/bleeding with bowel movements, persistent urinary frequency, urethral stricture, erectile dysfunction, retrograde ejaculation, weakening of pelvic bones and increased fracture risk, and risk of secondary carcinoma.? The relative estimated risk and time course as well as potential management of thesetoxicities was discussed.? He will have fiducial placement and space OAR placement and then will return for CT simulation.? Prior to this we will get a PSMA PET scan and I will call him with the results and he will initiate ADT following this.? He was instructed to call with any further questions or concerns in the interim. Thank you for allowing me to participate in the management and care of your patient. If I may answer any questions in the interim, please do not hesitate tocontact me at any time. Vickey Logan DO, MS Sole Rounding Machine Operator, Department of Radiation Oncology [facility] Coding Level of Care Code Off vis,new,level 5 Diagnoses Primary malignant neoplasm of prostate with high risk of recurrence due to Karon score of 8 to 10 and PSA greater than 20 C61 10/20/24 1532 <Electronically signed by Vickey Logan DO> Date _ Vickey Logan DO Cosigner Signature: Date (if applicable) CC: ~ [facility] Work Phone: 1(721) 863-899004-24-2025 Evaluation note* Diagnosis Onset Date Resolution Status Admit Date S/P inguinal hernia repair acute July 09, 2024 1:03pm [facility] Work Phone: 1(957) 570-527204-24-2025 Evaluation note* Diagnosis Onset Date Resolution Status Admit Date S/P inguinal hernia repair acute July 09, 2024 1:03pm S/P inguinal hernia repair acute August 12, 2024 8:12am [facility] Work Phone: [phone] 415-275904-24-2025 Evaluation note* Diagnosis Onset Date Resolution Status Admit Date S/P inguinal hernia repair acute July 09, 2024 1:03pm S/P inguinal hernia repair acute August 12, 2024 8:12am Primary malignant neoplasm o f prostate with high risk of recurrence due to acute October 20 1:56pm [facility] Work Phone: 1(211) 370-104204-17-2025 Consult note [facility] Medical Records Department [address] [place] [address] Anesthesia Postop Eval I 07/02/24 1238 MR#: [id number] Acct: [id number] Name: ANDERSONDUNCAN J Rep #:[id number] : 1950 73 From: Prema clemens OXYGEN THERAPY TECHNICIAN PCP: Dr. Flaca Estrella MD Status:REG [facility] [place] Race: C Location: [address] Anesthesia: Postop Eval I Current Vital Signs Temperature: 98 F Pulse Rate: 72 Blood Pressure: 137/73 Respiratory Rate: 16 Pulse Ox: 100 Oxygen Delivery Method: Simple Mask Oxygen Flow Rate (L/min): 6 Assessment Airway patent: Yes Spontaneous unlabored respirations: Yes Mental status: Asleep nausea: No Vomiting: No Anesthesia Complication: No Fluid Hydration Crystalloid volume administer (ml): 1,000 Total IV fluid infused: 1,000 Progress Note Anesthesia document: Postop Eval 1 completed: Yes 07/02/24 1238 deni OXYGEN THERAPY TECHNICIAN> Date _ Prema Souza OXYGEN THERAPY TECHNICIAN Cosigner Signature: Date CC: ~ Signed [facility]04-17-2025 Consult note [facility] Medical Records Department [address] [place] [address] Anesthesia Postop Eval II 07/02/24 1316 MR#: [id number] Acct: [id number] Name: DANIEL ANDERSONGUILLE Woo Rep #:[id number] : 1950 73 From: Prema clemens OXYGEN THERAPY TECHNICIAN PCP: Dr. Flaca Estrella MD Status:REG EUNICE Y Race: C Location: [address] Anesthesia Postop Eval I Sum Postop Eval Completion status Anesthesia document: Postop Eval 1 completed: Yes Anesthesia Postop Eval I Summary Anesthesia Postop Eval I Summary: Anesthesia Postop Eval I: Assessment Summary 3 Airway patent Yes 07/02/24 12:38 OXYGEN THERAPY TECHNICIAN.[email or web address] Spontaneous unlabored Yes 07/02/24 12:38 OXYGEN THERAPY TECHNICIAN.SKOBY respirations Mental status Asleep 07/02/24 12:38 OXYGEN THERAPY TECHNICIAN.SKOBY nausea No 07/02/24 12:38 OXYGEN THERAPY TECHNICIAN.SKOBY Vomiting No 07/02/24 12:38 OXYGEN THERAPY TECHNICIAN.SKOBY Anesthesia Postop Eval I: Fluid Summary Crystalloid volume administer 1,000 07/02/24 12:38 OXYGEN THERAPY TECHNICIAN.SKOBY (ml) Colloids volume administered ( ml) Blood Product volume administered (ml) Total IV fluid infused 1,000 07/02/24 12:38 OXYGEN THERAPY TECHNICIAN.SONALOBMilad Anesthesia Postop Eval I: Summary Notes Anesthesia Complication No 07/02/24 12:38 OXYGEN THERAPY TECHNICIAN.SONALOBMilad Anesthesia Complication Comment: Post-operative progress note Anesthesia: Postop Eval II Evaluation Mental status: Awake and Calm Pain Level: 0 nausea: No Vomiting: No Complications Anesthesia Complication: No 07/02/24 1316 deni OXYGEN THERAPY TECHNICIAN> Date _ Prema Souza OXYGEN THERAPY TECHNICIAN Cosigner Signature: Date CC: ~ Signed [facility]04-17-2025 Consult note Author Prema Souza [facility] Note Date/Time July 02, 2024 4:5 0pm [facility] Medical Records Department [address] [place] [address] Anesthesia Postop Eval II 07/02/24 1316 MR#: [id number] Acct: [id number] Name: DUNCAN ANDERSON Rep #:[id number] : 1950 73 From: Prema clemens OXYGEN THERAPY TECHNICIAN PCP: Dr. Flaca Estrella MD Status:REG SDC Y Race: C Location: [address] Anesthesia Postop Eval I Sum Postop Eval Completion status Anesthesia document: Postop Eval 1 completed: Yes Anesthesia Postop Eval I Summary Anesthesia Postop Eval I Summary: Anesthesia Postop Eval I: Assessment Summary 3 Airway patent Yes 07/02/24 12:38 OXYGEN THERAPY TECHNICIAN.SKOBY Spontaneous unlabored Yes 07/02/24 12:38 OXYGEN THERAPY TECHNICIAN.FLAKITO respirations Mental status Asleep 07/02/24 12:38 OXYGEN THERAPY TECHNICIAN.SKOBY nausea No 07/02/24 12:38 OXYGEN THERAPY TECHNICIAN.SKOBY Vomiting No 07/02/24 12:38 OXYGEN THERAPY TECHNICIAN.SONALOBMilad Anesthesia Postop Eval I: Fluid Summary Crystalloid volume administer 1,000 07/02/24 12:38 OXYGEN THERAPY TECHNICIAN.SONALOBY (ml) Colloids volume administered ( ml) Blood Product volume administered (ml) Total IV fluid infused 1,000 07/02/24 12:38 OXYGEN THERAPY TECHNICIAN.FLAKITO Anesthesia Postop Eval I: Summary Notes Anesthesia Complication No 07/02/24 12:38 OXYGEN THERAPY TECHNICIAN.FLAKITO Anesthesia Complication Comment: Post-operative progress note Anesthesia: Postop Eval II Evaluation Mental status: Awake and Calm Pain Level: 0 nausea: No Vomiting: No Complications Anesthesia Complication: No 07/02/24 1316 <Electronically signed by Prema cheema CRNA> Date _ Prema Souza CRNA Cosigner Signature: Date CC: ~ Signed [facility] Work Phone: [phone]) [phone] Consult note Author Prema Souza [facility] Note Date/Time July 02, 2024 4:5 0pm [facility] Medical Records Department [address] [address] [address] Anesthesia Postop Eval I 07/02/24 1238 MR#: [id number] Acct: [id number] Name: DUNCAN ANDERSON Rep #:[id number] : 1950 73 From: Prema clemens OXYGEN THERAPY TECHNICIAN PCP: Dr. Flaca Estrella MD Status:REG [facility] [place] Race: C Location: [place] [address] Anesthesia: Postop Eval I Current Vital Signs Temperature: 98 F Pulse Rate: 72 Blood Pressure: 137/73 Respiratory Rate: 16 Pulse Ox: 100 Oxygen Delivery Method: Simple Mask Oxygen Flow Rate (L/min): 6 Assessment Airway patent: Yes Spontaneous unlabored respirations: Yes Mental status: Asleep nausea: No Vomiting: No Anesthesia Complication: No Fluid Hydration Crystalloid volume administer (ml): 1,000 Total IV fluid infused: 1,000 Progress Note Anesthesia document: Postop Eval 1 completed: Yes 07/02/24 1238 <Electronically signed by Prema cheema CRNA> Date _ Prema Souza OXYGEN THERAPY TECHNICIAN Cosigner Signature: Date CC: ~ Signed [facility] Work Phone: 1(503) 303-104704-17-2025 History and physical note Author [facility] Note Date/Time July 02, 2024 7:[address] [place] [address] System Medical Records Department [address] [place] [address] History & Physical Exam 07/02/24 0712 MR#: [id number] Acct: [id number] Name: DUNCAN ANDERSON Rep #:[id number] : 1950 73 From: Khoa Ramos PCP: Dr. Flaca Estrella MD Status:REG [facility] [place] Location: [address] History and Physical Date of Admission: 07/02/24 Date of Service: 03/30/24 MR#: [id number] Acct: [id number] Name: DUNCAN ANDERSON Rep #: [id number] : 1950 Provider: Dr. Khoa Gonzalez MD Age/Sex: 73/M Location: [facility] Status: Signed Intake Vital Signs 01/22/2409:14 03/26/2508:11 03/30/2506:47 Height 5 ft 10 in 5 ft 10 in 5 ft 10 in Weight: 195 lb 194 lb 8 oz BMI 27.9 27.8 BP 157/89 H 148/86 H 149/94 H Blood Pressure Location Lt brachial Rt brachial Rt brachial Position Sitting Sitting Sitting Respiration 16 18 18 Pulse 65 53 L 61 Pulse Source Monitor Temp 97.7 F L 98 F 97.6 F L Temp Source Oral Oral Temporal Pulse Oximetry (%) 94 96 95 Oxygen Delivery Method room air room air room air Intake Visit Reasons: 2 M HERNIA CHECK Chief Complaint: 2 m hernia check/ discuss inguinal hernia repair Is patient in pain?: No Allergies ramipril (From Altace) Adverse Reaction (Unknown, Verified 03/30/24 07:47) GI Issues Medications ?Medication ?Instructions ?Recorded ?Confirmed ?Type aspirin 81 mg tablet,delayed 81 mg PO DAILY 07/27/21 03/30/24 History release (Adult Low Dose Aspirin) atorvastatin 40 mg tablet (Lipitor) 40 mg PO DAILY 01/22/23 03/30/24 History metoprolol tartrate 50 mg tablet 25 mg PO BID 01/22/23 03/30/24 History (Lopressor) amlodipine 2.5 mg tablet (Norvasc) 2.5 mg PO DAILY #90 tabs 12/27/23 03/30/24 Rx Have you fallen in the past year?: No PFSH Medical History History of steroid therapy High cholesterol Heartburn Former smoker Leg cramps History of echocardiogram History of stress test Cardiology follow-up encounter Preoperative cardiovascular examination History of left heart catheterization (LHC) (~09/08/99) Paroxysmal atrial fibrillation Essential hypertension Pure hypercholesterolemia Atherosclerotic heart disease of [place] coronary artery without angina pectoris Incarcerated ventral hernia Screening for intestinal cancer Epigastric pain History of LA (myocardial infarction) Hypercholesterolemia Hypertension Heart disease Surgical History S/P umbilical hernia repair, follow-up exam Hx of rhinoplasty History of shoulder surgery History of coronary artery bypass surgery (~06/15/16) History of angioplasty History of coronary artery stent placement History of bilateral inguinal hernia repair Family History Father Cancer LungMother Myocardial infarction, Onset Age: 93 Social History Smoking Status: Former smoker how long ago did patient quit smoking: quit in 1979 alcohol intake: current alcohol intake frequency: holidays/special occasions only substance use type: does not use caffeine: Yes Type: coffee Number of servings: 2 additional social history: denies vaping, denies marijuana use denies edibles, uses aspirin daily, ibuprofen as needed no family history blood clotting disorder HPI HPI HPI: Patient is a 73-year-old male who makes follow-up from hybrid umbilical hernioplasty on 11/25/2023 and inquires about possible repair of bilateral inguinal hernias. Initial consultation was made in October 2023. He reports today sharing that he has no pulling at all from his umbilical repair and has no wound concerns. He is pleased with the healing. Concerning his inguinal hernias he notes some burning discomfort on the left side. He denies noting any growth from either side. He also denies noting any change to his bowel habits. Below is recapitulated from patient's consultation visit October 2023 for ease ofreview: Patient is a 72-year-old male who presents for evaluation of a umbilical hernia as well as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 Admit Date S/P inguinal hernia repair July 09, 2 025 1:03pm Chief Complaint Admit Date Lap Robotic Inguinal Hernia w/mesh July 02, 2024 5:32am Lap Robotic Inguinal Hernia w/mesh July 02, 2024 7:12am HERNIA -July 09, 2024 1:0 3pm HERNIA 07-02August 12, 2024 8:12a m Reason for Visit Admit Date S/P inguinal hernia repair July 09, 2 025 1:03pm S/P inguinal hernia repair August 12 8:12am Chief Complaint Admit Date Lap Robotic Inguinal Hernia w/mesh July 02, 2024 5:32am Lap Robotic Inguinal Hernia w/mesh July 02, 2024 7:12am HERNIA -July 09, 2024 1:0 3pm HERNIA -August 12, 2024 8:12a m R97.20 Elevated prostate specific antige n [PSA] September 02, 2024 7:59am Chief Complaint Admit Date Lap Robotic Inguinal Hernia w/mesh July 02, 2024 5:32am Lap Robotic Inguinal Hernia w/mesh July 02, 2024 7:12am HERNIA -July 09, 2024 1:0 3pm HERNIA -August 12, 2024 8:12a m R97.20 Elevated prostate specific antige n [PSA] September 02, 2024 7:59am PROSTATE CA October 20, 2024 1:5 6pm Reason for Visit Admit Date S/P inguinal hernia repair July 09, 2 025 1:03pm S/P inguinal hernia repair August 12 8:12am Primary malignant neoplasm o f prostate with high risk of recurrence due to October 20, 2024 1:56pm Family History No Family History Records Found Relationship Condition Age at Onset Recorded Date/T chino father Malignant neoplasm Unknown mother Myocardial infarction 93 Summary Purpose Advance Directives No Advanced Directives Records Found Advance Directive Response Recorded Date/ Time Living Will No June 24, 2024 3:33pm Do you have a Healthcare Power of Sample Carrier? No June 24, 2024 3:33pm Additional Source Comments Goals (unrecognized section and content) Goals may be documented in a n alternate sectionGoals may be documented in an alternate sectionGoals may be documented in an alternate sectionGoals may be documented in an alternate sectionGoals may be documented in an alternate sectionGoals may be documented in an alternate sectionGoals may be documented in an alternate section Care Teams (unrecognized sec tion and content) Team Status: Active Member Role Status Dates Dr. Flaca Estrella MD Family Provider Active Dr. Flaca Estrella MD Primary Care Provider Active Team Status: Active Member Role Status Dates Dr. Flaca Estrella MD Primary Care Provider, Attendin g Provider Active Team Status: Inactive Member Role Status Dates Dr. Flaca Estrella MD Primary Care Prov ider, Attending Provider, Referring Provider Active Team Status: Inactive Member Role Status Dates Dr. Flaca Estrella MD Primary Care Provider, Attendin g Provider Active Team Status: Inactive Member Role Status Dates Dr. Flaca Estrella MD Primary Care Provider, Referrin g Provider Active Aura HANNA PA Attending Provider Active Team Status: Inactive Member Role Status Dates Dr. Flaca Estrella MD Primary Care Provider Active Aura HANNA PA Attending Provider, Referr ing Provider Active Team Status: Active Member Role Status Dates Dr. Flaca Estrella MD Primary Care Provider Active Team Status: Inactive Member Role Status Dates Dr. Flaca Estrella MD Primary Care Provider Active Start: March 26, 2024 End: March 26, 2024 Dr. Flaca Estrella MD Referring Provider Active Start: March 26, 2024 End: March 26, 2024 Dr. Palmer Machuca MD Attending Provider Active Start: March 26, 2024 End: March 26, 2024 Team Status: Inactive Member Role Status Dates Dr. Flaca Estrella MD Primary Care Provider Active Start: March 30, 2024 End: March 30, 2024 Dr. Flaca Estrella MD Referring Provider Active Start: March 30, 2024 End: March 30, 2024 Dr. Khoa Gonzalez MD Attending Provider Active Start: March 30, 2024 End: March 30, 2024 Team Status: Inactive Member Role Status Dates Dr. Flaca Estrella MD Primary Care Provider Active Start: March 31, 2024 End: March 31, 2024 Dr. Flaca Estrella MD Referring Provider Active Start: March 31, 2024 End: March 31, 2024 Dr. Raymundo Canada MD Attending Provider Active S tart: March 31, 2024 End: March 31, 2024 Team Status: Inactive Member Role Status Dates Dr. Flaca Estrella MD Primary Care Provider Active Start: July 02, 2024 End: July 02, 2024 Dr. Khoa Gonzalez MD Attending Provider Active Start: July 02, 2024 End: July 02, 2024 Dr. Khoa Gonzalez MD Referring Provider Active Start: July 02, 2024 End: July 02, 2024 Team Status: Active Member Role Status Dates Dr. Flaca Estrella MD Primary Care Provider Active Start: July 02, 2024 Dr. Khoa Gonzalez MD Attending Provider Active Start: July 02, 2024 Dr. Khoa Gonzalez MD Referring Provider Active Start: July 02, 2024 Dr. Khoa Gonzalez MD Other Provider Active Sta rt: July 02, 2024 Team Status: Active Member Role Status Dates Mustapha Shrestha INDUSTRIAL MACHINE OPERATOR, INDUSTRIAL MACHINE OPERATOR-C Primary Care Provider Active Team Status: Inactive Member Role Status Dates Dr. Flaca Estrella MD Primary Care Provider Active Start: July 09, 2024 End: July 09, 2024 Dr. Flaca Estrella MD Referring Provider Active Start: July 09, 2024 End: July 09, 2024 Lashonda HANNA PA-C Attending Provider Active Start: July 09, 2024 End: July 09, 2024 Team Status: Inactive Member Role Status Dates Mustapha Shrestha INDUSTRIAL MACHINE OPERATOR, INDUSTRIAL MACHINE OPERATOR-C Primary Care Provider Active Start: July 27, 2024 End: July 27, 2024 Mustapha Shrestha INDUSTRIAL MACHINE OPERATOR, INDUSTRIAL MACHINE OPERATOR-C Attending Provider Active Start: July 27, 2024 End: July 27, 2024 Mustapha Shrestha INDUSTRIAL MACHINE OPERATOR, INDUSTRIAL MACHINE OPERATOR-C Referring Provider Active Start: July 27, 2024 End: July 27, 2024 Team Status: Inactive Member Role Status Dates Mustapha Hernandoorrow INDUSTRIAL MACHINE OPERATOR, INDUSTRIAL MACHINE OPERATOR-C Primary Care Provider Active Start: August 12, 2024 End: August 12, 2024 Mustapha Shrestha INDUSTRIAL MACHINE OPERATOR, INDUSTRIAL MACHINE OPERATOR-C Referring Provider Active Start: August 12, 2024 End: August 12, 2024 Dr. Khoa Gonzalez MD Attending Provider Active Start: August 12, 2024 End: August 12, 2024 Team Status: Inactive Member Role Status Dates Mustapha Henrietta INDUSTRIAL MACHINE OPERATOR, INDUSTRIAL MACHINE OPERATOR-C Primary Care Provider Active Start: August 18, 2024 End: August 18, 2024 Cindy Adamesing Attending Provider Active Start : August 18, 2024 End: August 18, 2024 Cindy Herron Referring Provider Active Start : August 18, 2024 End: August 18, 2024 Team Status: Inactive Member Role Status Dates Mustapha Shrestha INDUSTRIAL MACHINE OPERATOR, INDUSTRIAL MACHINE OPERATOR-C Primary Care Provider Active Start: September 02, 2024 End: September 02, 2024 Dr. Davie Isabel MD Attending Provider Active Start: September 02, 2024 End: September 02, 2024 Dr. Davie Isabel MD Referring Provider Active Start: September 02, 2024 End: September 02, 2024 Team Status: Active Member Role/Relationship Status Dates Mustapha Shrestha INDUSTRIAL MACHINE OPERATOR, INDUSTRIAL MACHINE OPERATOR-C Primary Care Provider Active Team Status: Inactive Member Role/Relationship Status Dates Dr. Flaca Estrella MD Primary Care Provider Active Start: July 02, 2024 End: July 02, 2024 Dr. Khoa Gonzalez MD Attending Provider Active Start: July 02, 2024 End: July 02, 2024 Dr. Khoa Gonzalez MD Referring Provider Active Start: July 02, 2024 End: July 02, 2024 Team Status: Active Member Role/Relationship Status Dates Dr. Flaca Estrella MD Primary Care Provider Active Start: July 02, 2024 Dr. Khoa Gonzalez MD Attending Provider Active Start: July 02, 2024 Dr. Khoa Gonzalez MD Referring Provider Active Start: July 02, 2024 Dr. Khoa Gonzalez MD Other Provider Active Sta rt: July 02, 2024 Team Status: Inactive Member Role/Relationship Status Dates Dr. Flaca Estrella MD Primary Care Provider Active Start: July 09, 2024 End: July 09, 2024 Dr. Flaca Estrella MD Referring Provider Active Start: July 09, 2024 End: July 09, 2024 Lashonda HANNA, PA-C Attending Provider Active Start: July 09, 2024 End: July 09, 2024 Team Status: Inactive Member Role/Relationship Status Dates Mustapha Hernandoorrow INDUSTRIAL MACHINE OPERATOR, INDUSTRIAL MACHINE OPERATOR-C Primary Care Provider Active Start: July 27, 2024 End: July 27, 2024 Mustapha Hernandoorrow INDUSTRIAL MACHINE OPERATOR, INDUSTRIAL MACHINE OPERATOR-C Attending Provider Active Start: July 27, 2024 End: July 27, 2024 Mustapha McMorrow INDUSTRIAL MACHINE OPERATOR, INDUSTRIAL MACHINE OPERATOR-C Referring Provider Active Start: July 27, 2024 End: July 27, 2024 Team Status: Inactive Member Role/Relationship Status Dates Mustapha McMorrow INDUSTRIAL MACHINE OPERATOR, INDUSTRIAL MACHINE OPERATOR-C Primary Care Provider Active Start: August 12, 2024 End: August 12, 2024 Mustapha Hernandoorrow INDUSTRIAL MACHINE OPERATOR, INDUSTRIAL MACHINE OPERATOR-C Referring Provider Active Start: August 12, 2024 End: August 12, 2024 Dr. Khoa Gonzalez MD Attending Provider Active Start: August 12, 2024 End: August 12, 2024 Team Status: Inactive Member Role/Relationship Status Dates Mustapha Hernandoorrow INDUSTRIAL MACHINE OPERATOR, INDUSTRIAL MACHINE OPERATOR-C Primary Care Provider Active Start: August 18, 2024 End: August 18, 2024 Cindy Herron Attending Provider Active Start : August 18, 2024 End: August 18, 2024 Cindy Herron Referring Provider Active Start : August 18, 2024 End: August 18, 2024 Team Status: Inactive Member Role/Relationship Status Dates Mustapha Hernandoorrow INDUSTRIAL MACHINE OPERATOR, INDUSTRIAL MACHINE OPERATOR-C Primary Care Provider Active Start: September 02, 2024 End: September 02, 2024 Dr. Davie Isabel MD Attending Provider Active Start: September 02, 2024 End: September 02, 2024 Dr. Davie Isabel MD Referring Provider Active Start: September 02, 2024 End: September 02, 2024 Team Status: Inactive Member Role/Relationship Status Dates Mustapha Hernandoorrow INDUSTRIAL MACHINE OPERATOR, INDUSTRIAL MACHINE OPERATOR-C Primary Care Provider Active Start: October 01, 2024 End: October 01, 2024 Dr. Davie Isabel MD Attending Provider Active Start: October 01, 2024 End: October 01, 2024 Dr. Davie Isabel MD Referring Provider Active Start: October 01, 2024 End: October 01, 2024 Team Status: Inactive Member Role/Relationship Status Dates Mustapha orrow INDUSTRIAL MACHINE OPERATOR, INDUSTRIAL MACHINE OPERATOR-C Primary Care Provider Active Start: October 20, 2024 End: October 20, 2024 Dr. Vickey Logan DO Attending Provider Active Start: October 20, 2024 End: October 20, 2024 Dr. Davie Isabel MD Referring Provider Active Start: October 20, 2024 End: October 20, 2024 (unrecognized sect ion and content) No Status Records FoundNo Status Records Found INFORMATION SOURCE (unrecogn ized section and content) DATE CREATED AUTHOR 08/03/2023 [facility] DATE CREATED AUTHOR AUTHOR'S ANAIZ ATION 11/10/2024 [facility] FOR RECORDS PERTAINING TO PATIENTS WHO ARE OR HAVE BEEN ENROLLED IN A CHEMICAL DEPENDENCY/SUBSTANCEABUSE PROGRAM, SOME INFORMATION MAY BE OMITTED. This clinical summary was aggregated from multiple sources. Caution should be exercised in using it in the provision of clinical care. This summary normalizes information from multiple sources, and as a consequence, information in this document may materially change the coding, format and clinical context of patient data. In addition, data may be omitted in some cases. CLINICAL DECISIONS SHOULD BE BASED ON THE PRIMARY CLINICAL RECORDS. [facility] [employer] provides no warranty or guarantee of the accuracy or completeness of information in this document.
[2024-11-11] MEDS: Lactated Ringers 1,000 ML 15 ML IV (06:37)
--- NOTE | 2024-11-11 07:06 | PRE.ANES_ITS ---
ASA Classification* ASA Classification ASA Classification: 3 Assessment & Plan Anesthesia* Anesthesia Assessment Anesthesia Assessment: Discussed sedation and/or anesthesia options, risks, benefits, and alternatives with patient/parents/legal guardian/POA. Questions invited. The patient/parents/legal guardian/POA seems to understand and agrees to proceed with anesthesia plan. Reviewed the physical assessment, medical history, allergy history and patient home medications list prior to surgery/procedure/anesthetic and documented any changes. Performed airway and anesthesia risk assessments. Anesthesia Type Anesthesia Type: General History Source History Obtained from:: Patient and Chart Anesthesia Focused Assessment* Temperature: 97.7 F Pulse Rate: 60 Blood Pressure: 134/95 Respiratory Rate: 18 Pulse Ox: 98 Oxygen Delivery Method: Room Air Airway Assessment Mouth opens: 2 cm Mallampati Score: II Teeth Condition: Intact Neck Range of motion (ROM): Full ROM Labs Anesthesia Preop lab: CBC WBC 5.6 K/mm3 (4.4-11.0) 06/29/24 14:16 06/29/24 RBC 5.15 M/mm3 (4.6-6.2) 06/29/24 14:16 06/29/24 Hgb 14.8 g/dL (13.0-16.5) 06/29/24 14:16 06/29/24 Hct 43.5 % (40-54) 06/29/24 14:16 06/29/24 Plt Count 169 K/mm3 (150-450) 06/29/24 14:16 06/29/24 CHEMISTRY Potassium 3.8 mmol/L (3.3-5.1) 06/29/24 14:16 06/29/24 Sodium 140 mmol/L (133-145) 06/29/24 14:16 06/29/24 BUN 21 mg/dL (4-19) H 06/29/24 14:16 06/29/24 Creatinine 0.93 mg/dL (0.70-1.20) 06/29/24 14:16 06/29/24 Glucose 108 mg/dL (70-99) H 06/29/24 14:16 06/29/24 TSH 1.150 uIU/mL (0.358-3.740) 01/20/24 10:46 07/09 COAG Pre-Assessment Diagnosis/Proposed Procedure Planned Operative Procedure(s): U/S GUIDED INTERSTITIAL MARKERS Anesthesia History Anesthesia History - hand thermal cutter: Anesthesia History - hand thermal cutter Hx Hospitalization Yes: 2023 BOWEL OBSTRUCTION 10/28/24 10:12 Any Problems With Anesthesia No 10/28/24 10:12 Cholinesterase deficiency No 10/28/24 10:12 You/Your Family Experience No 10/28/24 10:12 fever (hyperthermia) with Relationship Recent Exposure to Contagious No 11/11/24 06:26 Disease Does patient have nerve No 10/28/24 10:12 stimulator Patient instructed to have device shut off --Does patient have Pacemaker No 11/11/24 06:26 or ICD? When Was Last Pacemaker Check QUESTION #4 FULL TEXT: You/Your Family Experience fever (hyperthermia) with Anesthesia Last Oral Intake Last Oral intake: Last Oral Intake NPO since 23:45 11/11/24 06:26 Meds taken in AM with sips of Yes 11/11/24 06:26 water? Meds patient instructed to Metoprolol and Bactrim 11/11/24 06:26 take am of surgery PONV PONV - hand thermal cutter: PONV - hand thermal cutter Female No 10/28/24 10:12 HX of Motion Sickness No 10/28/24 10:12 HX of N/V After Surgery No 10/28/24 10:12 Non-Smoker No 10/28/24 10:12 Duration of Surgery greater No 10/28/24 10:12 than 60 minutes Number of Risk Factors PONV Score Height & Weight Height & Weight: Anesthesia: Height & Weight Height 5 ft 10 in 11/11/24 06:26 Weight: 84 kg 11/11/24 06:26 Body Mass Index (BMI) 26.5 11/11/24 06:26 Respiratory Assessment Respiratory Assessment - hand thermal cutter: Respiratory Tract Infection Hx - hand thermal cutter Hx Respiratory Tract Infection No 10/28/24 10:12 STOP Sleep Apnea STOP Sleep Apnea - hand thermal cutter: STOP Sleep Apnea - hand thermal cutter Hx Hypertension Yes: CONTROLLED ON MED 10/28/24 10:12 Hx Sleep Apnea No 10/28/24 10:12 CPAP BIPAP Do you snore loudly (louder Yes 10/28/24 10:12 than talking or can be heard Do you often feel tired/ Yes 10/28/24 10:12 fatigued/ sleepy during daytime? Has anyone observed you stop No 10/28/24 10:12 breathing during sleep? STOP Results Positive 10/28/24 10:12 QUESTION #5 FULL TEXT : Do you snore loudly (louder than talking or can be heard through closed doors)? Tobacco Use History Tobacco Use History - hand thermal cutter: Tobacco Use History - hand thermal cutter Tobacco Use Smoking Status Former smoker 10/28/24 10:12 Hx Tobacco Use No 10/28/24 10:12 Years Smoking Packs Smoked per Day Smoking Cessation Date was No - quit smoking greater 10/28/24 10:12 within the last 15 years than 15 years ago Hx Smoking Cessation Date Hx Smoking Cessation No 10/28/24 10:12 Counseling Hematologic Medial History Hematologic Hx - hand thermal cutter: Hematologic Medical Hx - rn clinical documentation Hx of Blood Transfusion No 10/28/24 10:12 Hx of Transfusion in last 3 No 10/28/24 10:12 Months Date of Last Transfusion (if within last 3 months) Ever experience any problems No 10/28/24 10:12 with transfusion(s)? Specify any problems Hx of Preganancy in last 3 N/A 10/28/24 10:12 Months Nurse Filling Out Transfusion DSCHRIBER 10/28/24 10:12 & Questions: Date: 10/28/24 10/28/24 10:12 Time: 10:14 10/28/24 10:12 Patient unable to answer at this time (ie. confused, unrespo /Reproduction History /Reproductive History - hand thermal cutter: /Reproductive Hx- hand thermal cutter Hx Now Gestational Age (in weeks): EDC: Hx Hx Para Hx Section SAB No 10/28/24 10:12 Active Medications Active Medications: Current Medications Generic Name Dose Route Start Last Admin Trade Name Freq PRN Reason Stop Dose Admin Cefazolin Sodium 2 gm/ Sodium 110 mls @ 200 mls/hr 11/11/24 07:30 Chloride IV 11/11/24 08:02 INTRAOP ONE Lactated Ringer's 1,000 mls @ 15 mls/hr 11/11/24 06:15 11/11/24 06:37 IV 15 mls/hr .Q48H LUISA Administration PFSH Medical History (Updated 10/28/24 @ 10:17 by Nicole Adames) Cancer Family history of malignant neoplasm of prostate BPH with elevated PSA and lower urinary tract symptoms Loss of hearing Wears glasses Alcohol use Back pain Shortness of breath on exertion High cholesterol Heartburn Former smoker History of echocardiogram History of stress test Cardiology follow-up encounter Preoperative cardiovascular examination History of left heart catheterization (LHC) (~09/08/99) Paroxysmal atrial fibrillation Essential hypertension Pure hypercholesterolemia Atherosclerotic heart disease of [place] coronary artery without angina pectoris Incarcerated ventral hernia Screening for intestinal cancer Epigastric pain Hypertension Home Medications ?Medication ?Instructions ?Recorded ?Last Taken ?Type atorvastatin 40 mg tablet (Lipitor) 40 mg PO QHS 01/2211/10/24 History metoprolol tartrate 50 mg tablet 25 mg PO BID 01/22/23 11/11/24 History (Lopressor) amlodipine 2.5 mg tablet (Norvasc) 2.5 mg PO QHS #90 t abs 10/14/24 11/10/24 Rx Allergy/AdvReac Type Severity Reaction Status Date / Time Gadolinium-MRI Contrast Allergy Hives Verified 11/11/24 06:23 Medium ramipril (From Altace) AdvReac Unknown GI Issues Verified 11/11/24 06:23 Family History Father Cancer Lung Mother Myocardial infarction, Onset Age: 93 Surgical History (Updated 10/28/24 @ 10:17 by Nicole Adames) History of cardiac catheterization H/O prostate biopsy S/P inguinal hernia repair Hx of CABG Hx of umbilical hernia repair Hx of rhinoplasty History of shoulder surgery History of coronary artery bypass surgery (~06/15/16) History of angioplasty History of coronary artery stent placement History of bilateral inguinal hernia repair Social History Smoking Status: Former smoker how long ago did patient quit smoking: quit in 1979 alcohol intake: current alcohol intake frequency: holidays/special occasions only substance use type: does not use caffeine: Yes Type: coffee Number of servings: 2 additional social history: denies vaping, denies marijuana use denies edibles, uses aspirin daily, ibuprofen as needed no family history blood clotting disorder Review of Systems (Anesthesia) ROS Narrative System reviewed and no additional complaints, except as documented.
[2024-11-11] MEDS: Lactated Ringers 1,000 ML 1000 ML IV (07:24)
[2024-11-11] MEDS: Midazolam 2 MG/2 ML Syringe IV (07:24)
[2024-11-11] MEDS: fentaNYL 100 MCG/2 ML Ampul IV (07:33)
[2024-11-11] MEDS: Lidocaine 1% (5 ml sdv) 5 ML Vial IV (07:33)
[2024-11-11] MEDS: Cefazolin 1 GM/5 ML Vial 2 GM IV (07:35)
--- NOTE | 2024-11-11 07:47 | DCINST_ITS ---
Discharge Instructions DC O2, CPAP, BIPAP needs Home O2 Discharge instructions: No Dressing / Incision Discharge Activity: Return to Normal Activity and May Not Drive (while taking narcotic pain medications.) Dressing / Incision Call your doctor if you observe: Fever of 101 or Higher Follow Up Care Please Follow Up With: Davie Isabel MD When: Call [phone] for an appointment Test Results: Test results from this visit will be discussed in further detail at your follow- up appointment, if applicable. Discharge Plan Admission Primary Reason for Your Visit: markers placement Attending Provider: Davie Isabel Primary Care Provider: Jese Lujan Instructions Print Language: Portuguese Discharge Orders/Prescriptions Prescriptions: Continued atorvastatin [Lipitor] 40 mg tablet 40 mg PO QHS metoprolol tartrate [Lopressor] 50 mg tablet 25 mg PO BID amlodipine [Norvasc] 2.5 mg tablet 2.5 mg PO QHS Qty: 90 3RF Referrals / Follow Up: Davie Isabel MD [Med Staff - Active Staff] - Jese Lujan MD [Primary Care Provider] - Disposition Disposition (needs filled in before D/C Order can be placed): Home, Self Care
--- NOTE | 2024-11-11 07:47 | OP.PCM_ITS ---
Operative Report (Standard) Operative Information Date of Procedure: 11/11/24 Pre-Operative Diagnosis: Prostate cancer Post-Operative Diagnosis: Same Surgery/Procedure Performed: Placement of markers and spacer gel matrix in preparation for radiation treatments insurance processor: No Type of Anesthesia: General RN Documented Start/Stop Times: Operation Date: 11/11/24 07:30 Case Time Into Pre-Op 11/11/24 06:10 Out of Pre-Op 11/11/24 07:19 Anesthesia Start 11/11/24 07:24 Into Room 11/11/24 07:24 Procedure Start 11/11/24 07:40 Procedure End 11/11/24 07:43 Procedure Start Time: 07:40 Procedure Stop Time: :43 Select all DRAINS/GRAFTS/IMPLANTS that apply: None Estimated Blood Loss: 0 Specimen collected: No Description of surgery: In the preoperative area I reviewed with the patient how the procedure is done we talked about the risk of the procedure including the risk of infection, bleeding, migration of the spacer gel, the patient is planning to have radiation to the prostate he understands that the spacer gel has demonstrated benefit in reducing the risk of toxicity from the ration radiation to the rectum but there is no guarantees that this spacer gel will prevent any serious complications or toxicity to the rectum or bowels. After reviewing this with the patient and his family organ to proceed with placement of a spacer gel matrix. Patient was taken back to the operating room after smooth induction of anesthesia he was placed supine on the table. The genitals and perineum were prepped and draped in usual sterile fashion. I then introduced a biplanar ultrasound probe into the rectum and performed ultrasonography and identified the Denonvilliers' fascia the prostate mid base and apex and seminal vesicles. The penis and testicles were prepped and draped in usual sterile fashion, ultrasound probe was placed into the rectum and biplanar ultrasound was performed on the prostate. Identified the base mid and apex of the prostate identified the transition zone prostate. Then using a needle the first hat marker was placed into the right base of the prostate, the second hat marker was placed in the left base of the prostate, and the third core marker was placed in the right apex of the prostate after all 3 markers were placed the placement of the markers were confirmed by ultrasonography.The spacer gel mix was then prepared on the back table per manufactures instruction. Under ultrasound guidance in the midline perineum a bevel needle down we advanced through the perineum below the prostate into the space of Denonvilliers' fascia. This space which could be identified by ultrasound with a bright white layer between the prostate and the rectum. I then injected a puff of normal saline to identify the space further. After I confirmed that the needle was in the correct space in the mid prostate and the space of Denonvilliers' fascia between the rectum and the prostate. Then over the course of 15 seconds the gel matrix was injected slowly there was nice separation between the prostate and the rectum at the gel matrix was injected. The position of the gel matrix was confirmed by ultrasound. Then the injection needle was removed intact. Patient's perineum was cleaned patient was taken out of stirrups and then taken back to the PACU in good condition. Surgical Findings: markers placed Complications Complications: No Admit VTE Documentation VTE Present on Admission: No VTE Mechan Device Prophylaxis: SCD's VTE Pharm Prophylaxis ordered?: No
--- NOTE | 2024-11-11 07:56 | PCM.POST.ANE ---
Anesthesia: Postop Eval I Current Vital Signs Temperature: 97.7 F Pulse Rate: 64 Blood Pressure: 110/69 Respiratory Rate: 16 Pulse Ox: 95 Oxygen Delivery Method: Venturi Mask Oxygen Flow Rate (L/min): 4 Assessment Airway patent: Yes Spontaneous unlabored respirations: Yes Mental status: Asleep nausea: No Vomiting: No Anesthesia Complication: No Fluid Hydration Crystalloid volume administer (ml): 500 Total IV fluid infused: 500 Progress Note Anesthesia document: Postop Eval 1 completed: Yes
--- NOTE | 2024-11-11 08:33 | POSTOPAN2_ITS ---
Anesthesia Postop Eval I Sum Postop Eval Completion status Anesthesia document: Postop Eval 1 completed: Yes Anesthesia Postop Eval I Summary Anesthesia Postop Eval I Summary: Anesthesia Postop Eval I: Assessment Summary Airway patent Yes 11/11/24 07:56 [email or web address] [email or web address] Spontaneous unlabored Yes 11/11/24 07:56 [email or web address] [email or web address] respirations Mental status Asleep 11/11/24 07:56 [email or web address] nausea No 11/11/24 07:56 [email or web address] [email or web address] Vomiting No 11/11/24 07:56 [email or web address] [email or web address] Anesthesia Postop Eval I: Fluid Summary Crystalloid volume administer 500 11/11/24 07:56 [email or web address] [email or web address] (ml) Colloids volume administered ( ml) Blood Product volume administered (ml) Total IV fluid infused 500 11/11/24 07:56 [email or web address] [email or web address] Anesthesia Postop Eval I: Summary Notes Anesthesia Complication No 11/11/24 07:56 [email or web address] Anesthesia Complication Comment: Post-operative progress note Anesthesia: Postop Eval II Evaluation Mental status: Awake Pain Level: 0 nausea: No Vomiting: No Complications Anesthesia Complication: No
--- NOTE | 2024-11-11 08:33 | PCM.POSTANE2 ---
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 [email or web address] Vomiting No 11/11/24 07:56 SAP [email or web address] Anesthesia Postop Eval I: Fluid Summary Crystalloid volume administer 500 11/11/24 07:56 SAP [email or web address] [email or web address] (ml) Colloids volume administered ( ml) Blood Product volume administered (ml) Total IV fluid infused 500 11/11/24 07:56 SAP [email or web address] Anesthesia Postop Eval I: Summary Notes Anesthesia Complication No 11/11/24 07:56 SAP [email or web address] Anesthesia Complication Comment: Post-operative progress note Anesthesia: Postop Eval II Evaluation Mental status: Awake Pain Level: 0 nausea: No Vomiting: No Complications Anesthesia Complication: No
== END 2024-11-11 09:07 | disposition home or self-care (01) ==
LOC: SDC 05:59 → AC 06:00
PROVIDERS: PCP Family Medicine; Referring Provider Urology; Visit Provider Urology
PROC: (CPT 55874; principal; 2024-11-11 07:15)
DX: C61 Malignant neoplasm of prostate (principal); I10 Essential (primary) hypertension; I25.10 Atherosclerotic heart disease of native coronary artery without angina pectoris; Z87.891 Personal history of nicotine dependence; R97.20 Elevated prostate specific antigen [PSA]; Z80.42 Family history of malignant neoplasm of prostate; Z79.899 Other long term (current) drug therapy; E78.00 Pure hypercholesterolemia, unspecified
CPT/HCPCS: 55874; 55876; 00902; A4648; C1889; J2405

== ENCOUNTER → 2024-11-25 | Outpatient (CLI) | payer MEDICARE, SELFPAY ==
--- NOTE | 2024-11-25 10:38 | MRI_ITS ---
EXAM: PELVIS (ROUTINE) 11/25/2024 CLINICAL HISTORY: EVAL EXTENT OF DISEASE, PROSTATE CANCER. Status post biopsy on November TECHNIQUE: Procedure Code: MRIPEL Modality: MR Procedure: PELVIS (ROUTINE) Multiplanar and multisequence images were obtained without intravenous gadolinium contrast. Patient has an allergy to gadolinium. COMPARISON: MRI of the pelvis dated 09/02/2024 and PET-CT dated November 03, 2024 FINDINGS: Image quality:Diagnostic PSA:6.6ng/mL Prostate size: 5.4 x 3.7 by 4.2cms Prostate volume: 43.94mL PSA density:0.15 ng/mL??? Prostate Peripheral zone: Areas of hemorrhage noted within the right peripheral zone. Extending from the mid to apex area within the left transitional zone, there is a irregular T2 hypointense lesion measuring 16 x 10 mm which corresponds to the area of hypermetabolic uptake on PET. This is associated with decreased ADC map and early enhancement. This appears to surround the urethra but does not appear to invade it. PI-RADS: PI-RADS 5: very high (clinically significant cancer is highly likely to be present) Transitional zone: Benign prostatic hyperplasia. No suspicious T2 signal within the transitional zone. PI-RADS: PI-RADS 2: low (clinically significant cancer is unlikely to be present) Extra prostatic extension: Capsule is intact. Fluid collection posterior to the prostate likely a post biopsy seroma/resolving hematoma measuring 4.5 X 3.4 cm . Seminal vesicles: Normal. Neurovascular involvement: None. Lymphadenopathy: No lymphadenopathy. Bladder: Normal. Osseous structures: Normal. Gastrointestinal: Normal. Soft tissues: Small right hydrocele. No lymphadenopathy. No pelvic mass. MRI/Pelvis (Routine) IMPRESSION: 16 x 10 mm lesion within the left peripheral zone extending from mid gland to a pex and extending to the level of the urethra without distinct invasion. This corresponds to the abnormality seen on PET on November 03, 2024. PI-RADS 5: very high (clinically significant cancer is highly likely to be present No distant metastatic disease. Reading Location: [facility]
== END | disposition home or self-care (01) ==
PROVIDERS: PCP Family Medicine; Referring Provider Student in an Organized Health Care Education/Training Program; Visit Provider Student in an Organized Health Care Education/Training Program
DX: C61 Malignant neoplasm of prostate (principal)
CPT/HCPCS: 72195